=== PATIENT | male | born 2000 | race Hispanic/Latino ===

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

== ENCOUNTER 2018-01-15 06:01 | Emergency (ER) | payer BC, MEDICAID ==
[2018-01-15 06:34] VITALS: RESP 17; TEMP 98.3; O2SAT 100
[2018-01-15] MEDS ORDERED: Sodium Chloride 0.9% 1,000 ML IV STA (07:27)
[2018-01-15 08:54] LABS: PH,URINE 6.5 (4.7-8.0); URINE BILIRUBIN NEGATIVE (NEGATIVE); URINE BLOOD NEGATIVE (NEGATIVE); URINE GLUCOSE (UA) NEGATIVE (NEGATIVE); URINE LEUKOCYTE ESTERASE NEGATIVE Leu/uL (NEGATIVE); URINE PROTEIN NEGATIVE mg/dL (<30 mg/dL); URINE UROBILINOGEN 0.2 E.U./dL (<1 E.U./dL)
[2018-01-15 08:56] LABS: URINE APPEARANCE CLEAR (CLEAR); URINE COLOR LIGHT YELLOW (YELLOW)
[2018-01-15 09:04] LABS: BASO # 0.01 K/mm3 (0.0-2.0); BASO % 0.1 % (0.0-3.0); EOS % 0.2 % (1.5-5.0); GRAN # 6.73 (1.4-6.5); GRAN % 78.2 % (50.0-68.0); HEMOGLOBIN 14.5 g/dL (14.0-18.0); LYMPH # 1.2 (1.2-3.4); LYMPH % 13.8 % (22.0-35.0); MEAN CELL VOLUME 86.6 fl (80.0-105.0); MEAN CORPUSCULAR HEMOGLOBIN 31.3 pg (25.0-35.0); MEAN CORPUSCULAR HGB CONC 36.1 g/dl (31.0-37.0); MEAN PLATELET VOLUME 8.8 fl (7.0-11.0); MONO # 0.7 (0.1-0.6); MONO % 7.7 % (1.0-6.0); RBC 4.64 10^6/uL (3.5-6.1); RED CELL DISTRIBUTION WIDTH 13.2 % (11.5-14.5); WHITE BLOOD COUNT 8.6 10^3/ul (4.5-11.0)
[2018-01-15 09:14] LABS: ALB/GLOB RATIO 1.5 (1.1-1.8); ALBUMIN 4.7 g/dL (3.0-4.8); ALT/SGPT 25 U/L (7-56); AST/SGOT 20 U/L (17-59); BLOOD UREA NITROGEN 14 mg/dL (7-21); CALCIUM 9.3 mg/dL (8.4-10.5); GFR AFRICAN-AMERICAN > 60; GFR NON-AFRICAN AMERICAN > 60
[2018-01-15 09:31] LABS: BARBITURATES, UR NEGATIVE (NEGATIVE); BENZODIAZEPINES, UR NEGATIVE (NEGATIVE); OPIATES, UR NEGATIVE (NEGATIVE); PHENCYCLIDINE, UR NEGATIVE (NEGATIVE)
[2018-01-15 10:14] VITALS: PULSE 65
[2018-01-15 10:17] VITALS: BP 118/75
--- NOTE | 2018-01-15 11:14 | ED PDOC ---
Arrival/HPI - General Chief Complaint: Psychiatric Evaluation Time Seen by Provider: 01/15/18 07:01 Historian: Patient - History of Present Illness Narrative History of Present Illness (Text): 01/15/18 11:09 A 17 year old male, whose past medical history includes anxiety, presents to the emergency department for evaluation. Patient reports he took Xanax yesterday and "didn't feel good." He reports the Xanax was not prescribed to him. Patient denies any fever, chills, nausea, vomiting, abdominal pain, chest pain, shortness of breath, suicidal ideation, homicidal ideation, hallucinations or any other complaints. Patient denies any other drug use. Time/Duration: Other (yesterday) Symptom Course: Unchanged Context: Home Past Medical History - Provider Review Nursing Documentation Reviewed: Yes - Past History Past History: No Previous - Tetanus Immunization Tetanus Immunization: Unknown - Cardiac Hx Hypertension: No - Pulmonary Hx Tuberculosis: No - Neurological Hx Seizures: No - HEENT Hx HEENT Disorder: No - Renal Hx Renal Disorder: No - Endocrine/Metabolic Hx Endocrine Disorders: No - Hematological/Oncological Hx Cancer: No - Integumentary Hx Dermatological Disorder: No - Musculoskeletal/Rheumatological Hx Musculoskeletal Disorders: No - Gastrointestinal Hx Gastrointestinal Disorders: No - Genitourinary/Gynecological Hx Sexually Transmitted Diseases: No - Psychiatric Hx Substance Use: Yes (xanax) - Past Surgical History Past Surgical History: No Previous - Anesthesia Hx Anesthesia: No - Suicidal Assessment Suicide Risk Precautions: None Family/Social History - Physician Review Nursing Documentation Reviewed: Yes Family/Social History: No Known Family HX Smoking Status: Never Smoked Hx Alcohol Use: No Hx Substance Use: Yes (xanax) Hx Substance Use Treatment: No Allergies/Home Meds Allergies/Adverse Reactions: Allergies No Known Allergies Allergy (Verified 01/15/18 06:30) Home Medications: Home Meds Medication Instructions Recorded Confirmed No Known Home Med 04/26/12 01/15/18 Review of Systems - Physician Review All systems were reviewed & negative as marked: Yes - Review of Systems Constitutional: Other ("not feeling well"). absent: Fevers, Night Sweats Respiratory: absent: SOB Cardiovascular: absent: Chest Pain Gastrointestinal: absent: Abdominal Pain, Nausea, Vomiting Psychiatric: absent: Suicidal Ideation, Other (Homicidal ideation, Hallucinations) Physical Exam Vital Signs Reviewed: Yes Vital Signs Temp Pulse Resp BP Pulse Ox 01/15/18 10:16 65 17 118/75 100 01/15/18 10:14 65 17 100 01/15/18 09:36 68 17 120/75 100 01/15/18 06:31 98.3 F 64 17 117/71 100 Temperature: Afebrile Blood Pressure: Normal Pulse: Regular Respiratory Rate: Normal Appearance: Positive for: Well-Appearing, Non-Toxic, Comfortable Pain Distress: None Mental Status: Positive for: Alert and Oriented X 3 - Systems Exam Head: Present: Atraumatic, Normocephalic Pupils: Present: PERRL Extroacular Muscles: Present: EOMI Conjunctiva: Present: Normal Mouth: Present: Moist Mucous Membranes Neck: Present: Normal Range of Motion Respiratory/Chest: Present: Clear to Auscultation, Good Air Exchange. No: Respiratory Distress, Accessory Muscle Use Cardiovascular: Present: Regular Rate and Rhythm, Normal S1, S2. No: Murmurs Abdomen: No: Tenderness, Distention, Peritoneal Signs Back: Present: Normal Inspection Upper Extremity: Present: Normal Inspection. No: Cyanosis, Edema Lower Extremity: Present: Normal Inspection. No: Edema Neurological: Present: GCS=15, CN II-XII Intact, Speech Normal Skin: Present: Warm, Dry, Normal Color. No: Rashes Psychiatric: Present: Alert, Oriented x 3, Normal Insight, Normal Concentration Medical Decision Making ED Course and Treatment: 01/15/18 11:09 Impression: A 17 year old male presents for evaluation Plan: -- IV fluids -- Reassess and disposition Progress Notes: Labs reviewed, patient negative for xanax and positive for marijuana. On re-evaluation, patient feels better and is in no acute distress. I have discussed the results and plan with the patient, who expresses understanding. Patient in agreement with plan to be discharged home. Patient is stable for discharge. Patient was instructed to follow up with physician or return if symptoms worsen or new concerning symptoms arise. - Lab Interpretations Lab Results: 01/15/18 08:53 01/15/18 08:53 Lab Results 01/15/18 08:53: Alcohol, Quantitative < 10 01/15/18 08:53: Sodium 140, Potassium 4.3, Chloride 103, Carbon Dioxide 23, Anion Gap 18, BUN 14, Creatinine 0.8, Est GFR ( Amer) > 60, Est GFR (Non- Af Amer) > 60, Random Glucose 110, Calcium 9.3, Magnesium 2.0, Total Bilirubin 1.1, AST 20, ALT 25, Alkaline Phosphatase 49, Total Protein 7.7, Albumin 4.7, Globulin 3.0, Albumin/Globulin Ratio 1.5 01/15/18 08:53: WBC 8.6, RBC 4.64, Hgb 14.5, Hct 40.2 L, MCV 86.6, MCH 31.3, MCHC 36.1, RDW 13.2, Plt Count 215, MPV 8.8, Gran % 78.2 H, Lymph % (Auto) 13.8 L, [place] % (Auto) 7.7 H, Eos % (Auto) 0.2 L, Baso % (Auto) 0.1, Gran # 6.73 H, Lymph # (Auto) 1.2, [place] # (Auto) 0.7 H, Eos # (Auto) 0.0, Baso # (Auto) 0.01 01/15/18 08:35: Urine Opiates Screen Negative, Urine Methadone Screen Negative, Ur Barbiturates Screen Negative, Ur Phencyclidine Scrn Negative, Ur Amphetamines Screen Negative, U Benzodiazepines Scrn Negative, U Oth Cocaine Metabols Negative, U Cannabinoids Screen Positive H 01/15/18 08:35: Urine Color Light yellow, Urine Appearance Clear, Urine pH 6.5, Ur Specific [place] <= 1.005, Urine Protein Negative, Urine Glucose (UA) Negative, Urine Ketones 15 H, Urine Blood Negative, Urine Nitrate Negative, Urine Bilirubin Negative, Urine Urobilinogen 0.2, Ur Leukocyte Esterase Negative - Medication Orders Current Medication Orders: Discontinued Medications Sodium Chloride (Sodium Chloride 0.9%) 1,000 mls @ 999 mls/hr IV .[id number] STA Stop: 01/15/18 08:27 Last Admin: 01/15/18 08:47 Dose: Not Given Non-Admin Reason: Patient Refused - Scribe Statement The provider has reviewed the documentation as recorded by the Danitza Portillo Provider Scribe Attestation: All medical record entries made by the Scribe were at my direction and personally dictated by me. I have reviewed the chart and agree that the record accurately reflects my personal performance of the history, physical exam, medical decision making, and the department course for this patient. I have also personally directed, reviewed, and agree with the discharge instructions and disposition. Disposition/Present on Arrival - Present on Arrival Any Indicators Present on Arrival: No History of DVT/PE: No History of Uncontrolled Diabetes: No Urinary Catheter: No History of Decub. Ulcer: No History Surgical Site Infection Following: None - Disposition Have Diagnosis and Disposition been Completed?: Yes Diagnosis: Substance abuse Disposition: HOME/ ROUTINE Disposition Time: 09:35 Condition: GOOD Discharge Instructions (ExitCare): Drug Abuse and Drug Addiction (DC), Drug Abuse Treatment Additional Instructions: AYAKA HECK, thank you for letting us take care of you today. The emergency medical care you received today was directed at your acute symptoms. If you were prescribed any medication, please fill it and take as directed. It may take several days for your symptoms to resolve. Return to the Emergency Department if your symptoms worsen, do not improve, or if you have any other problems. Please contact your doctor or call one of the physicians/clinics you have been referred to that are listed on the Patient Visit Information form that is included in your discharge packet. Bring any paperwork you were given at discharge with you along with any medications you are taking to your follow up visit. Our treatment cannot replace ongoing medical care by a primary care provider outside of the emergency department. Thank you for allowing the [facility] team to be part of your care today. Follow up with your primary doctor in 3-4 days for re-evaluation and further management. Referrals: [facility], [Non-Staff] - Follow up with primary Forms: [employer] ([place])
== END 2018-01-15 10:16 | disposition home or self-care (01) ==
LOC: ED 06:01
DX: F19.10 Other psychoactive substance abuse, uncomplicated (principal); F41.9 Anxiety disorder, unspecified
CPT/HCPCS: 80053; 81003; 83735; 85025; 99285; G0480

== ENCOUNTER 2018-05-27 15:28 | Emergency (ER) | payer BC ==
[2018-05-27 15:32] VITALS: BMI 21.5
[2018-05-27 15:36] VITALS: RESP 18
[2018-05-27 16:12] LABS: BASO # 0.02 K/mm3 (0.0-2.0); BASO % 0.2 % (0.0-3.0); EOS % 0.3 % (1.5-5.0); GRAN # 6.81 (1.4-6.5); GRAN % 73.5 % (50.0-68.0); HEMOGLOBIN 16.3 g/dL (14.0-18.0); LYMPH # 1.3 (1.2-3.4); LYMPH % 14.5 % (22.0-35.0); MEAN CELL VOLUME 88.8 fl (80.0-105.0); MEAN CORPUSCULAR HEMOGLOBIN 32.1 pg (25.0-35.0); MEAN CORPUSCULAR HGB CONC 36.1 g/dl (31.0-37.0); MEAN PLATELET VOLUME 9.1 fl (7.0-11.0); MONO # 1.1 (0.1-0.6); MONO % 11.5 % (1.0-6.0); RBC 5.08 10^6/uL (3.5-6.1); RED CELL DISTRIBUTION WIDTH 11.7 % (11.5-14.5); WHITE BLOOD COUNT 9.3 10^3/uL (4.5-11.0)
[2018-05-27 16:21] LABS: ALB/GLOB RATIO 1.3 (1.1-1.8); ALBUMIN 4.8 g/dL (3.0-4.8); ALT/SGPT 20 U/L (7-56); AST/SGOT 19 U/L (17-59); BLOOD UREA NITROGEN 13 mg/dL (7-21); CALCIUM 9.8 mg/dL (8.4-10.5); GFR NON-AFRICAN AMERICAN > 60
[2018-05-27 16:22] LABS: ACETAMINOPHEN < 10.0 ug/ml (10.0-20.0); SALICYLATE < 1 mg/dL (2.0-20.0)
--- NOTE | 2018-05-27 16:38 | ED PDOC ---
Arrival/HPI - General Chief Complaint: Psychiatric Evaluation Time Seen by Provider: 05/27/18 15:30 Historian: Patient - History of Present Illness Narrative History of Present Illness (Text): 05/27/18 16:36 17yr old male presents today with anxiety, overthinking and not sleeping since yesterday. pt states he has a hx of schizophrenia. pt denies trauma or injury. no fever/chills. pt denies cp or sob. no dizziness or weakness. no n/v/d/c. no abdominal pain. pt states that he thinks he is having an anxiety attack. no other complaints. Past Medical History - Provider Review Nursing Documentation Reviewed: Yes - Travel History Have you recently traveled outside [place] w/in the past 3 mons?: No - Past History Past History: No Previous - Infectious Disease Hx of Infectious Diseases: None - Tetanus Immunization Tetanus Immunization: Unknown - Cardiac Hx Hypertension: No - Pulmonary Hx Tuberculosis: No - Neurological Hx Seizures: No - HEENT Hx HEENT Disorder: No - Renal Hx Renal Disorder: No - Endocrine/Metabolic Hx Endocrine Disorders: No - Hematological/Oncological Hx Cancer: No - Integumentary Hx Dermatological Disorder: No - Musculoskeletal/Rheumatological Hx Musculoskeletal Disorders: No - Gastrointestinal Hx Gastrointestinal Disorders: No - Genitourinary/Gynecological Hx Sexually Transmitted Diseases: No - Psychiatric Hx Anxiety: Yes Hx Depression: No Hx Substance Use: Yes (xanax) Other/Comment: substance abuse - Past Surgical History Past Surgical History: No Previous - Anesthesia Hx Anesthesia: No - Suicidal Assessment Feels Threatened In Home Enviroment: No Family/Social History - Physician Review Nursing Documentation Reviewed: Yes Family/Social History: Unknown Family HX Smoking Status: Current Some Days Smoker Hx Alcohol Use: Yes Frequency of alcohol use: Socially Hx Substance Use: Yes (xanax) Substance used: percocet/codeine Hx Substance Use Treatment: No Allergies/Home Meds Allergies/Adverse Reactions: Allergies No Known Allergies Allergy (Verified 01/15/18 06:30) Home Medications: Home Meds Medication Instructions Recorded Confirmed No Known Home Med 04/26/12 05/27/18 Review of Systems - Review of Systems Constitutional: absent: Fatigue, Fevers Respiratory: absent: SOB, Cough Cardiovascular: absent: Chest Pain, Palpitations Gastrointestinal: absent: Abdominal Pain, Constipation, Diarrhea, Nausea, Vomiting Genitourinary Male: absent: Dysuria Musculoskeletal: absent: Arthralgias, Back Pain, Neck Pain Skin: absent: Rash, Pruritis Neurological: absent: Headache, Dizziness Psychiatric: Anxiety Physical Exam Vital Signs Reviewed: Yes Vital Signs Temp Pulse Resp BP Pulse Ox 05/27/18 15:36 97.9 F 93 H 18 125/85 97 Temperature: Afebrile Blood Pressure: Normal Pulse: Regular Respiratory Rate: Normal Appearance: Positive for: Well-Appearing, Non-Toxic, Comfortable Pain Distress: None Mental Status: Positive for: Alert and Oriented X 3 - Systems Exam Head: Present: Atraumatic Mouth: Present: Moist Mucous Membranes Neck: Present: Normal Range of Motion Respiratory/Chest: Present: Clear to Auscultation, Good Air Exchange. No: Respiratory Distress, Accessory Muscle Use Cardiovascular: Present: Regular Rate and Rhythm, Normal S1, S2. No: Murmurs Abdomen: No: Tenderness, Distention, Peritoneal Signs, Rebound, Guarding Back: Present: Normal Inspection Upper Extremity: Present: Normal ROM Lower Extremity: Present: Normal ROM Neurological: Present: GCS=15, Speech Normal Skin: Present: Warm, Dry, Normal Color. No: Rashes Psychiatric: Present: Alert, Oriented x 3, Anxious. No: Suicidal Ideation, Homicidal Ideation Medical Decision Making ED Course and Treatment: 05/27/18 16:44 Patient is nontoxic well-appearing in no distress vital signs are stable. CBC WNL CMP WNL Tylenol WNL Salicylate WNL Alcohol level WNL Urine drug screen UA; + ketones cxr: wnl ekg sinus bradycardia at [address] elevations QTC 390 pt is non toxic well appearing; no distress. stable vitals. resting comfortably. pt is medically cleared for PES evaluation Patient was seen and evaluated by PES screener: Gilmer pt has been discharged AMA by psych. Impression; anxiety follow up with outpatient psychiatrist within the next 2 days. Follow-up with primary care physician within the next 2 days. Return if symptoms worsen persist or if new concerning symptoms develop - Lab Interpretations Lab Results: 05/27/18 15:50 05/27/18 15:50 Lab Results 05/27/18 15:50: Alcohol, Quantitative < 10 05/27/18 15:50: Salicylates < 1 L, Acetaminophen < 10.0 L 05/27/18 15:50: Sodium 140, Potassium 4.2, Chloride 103, Carbon Dioxide 23, Anion Gap 18, BUN 13, Creatinine 0.8, Est GFR ( Amer) > 60, Est GFR (Non- Af Amer) > 60, Random Glucose 107, Calcium 9.8, Total Bilirubin 0.8, AST 19, ALT 20, Alkaline Phosphatase 70, Total Protein 8.6 H, Albumin 4.8, Globulin 3.7, Albumin/Globulin Ratio 1.3 05/27/18 15:50: WBC 9.3, RBC 5.08, Hgb 16.3, Hct 45.1, MCV 88.8, MCH 32.1, MCHC 36.1, RDW 11.7, Plt Count 243, MPV 9.1, Gran % 73.5 H, Lymph % (Auto) 14.5 L, [place] % (Auto) 11.5 H, Eos % (Auto) 0.3 L, Baso % (Auto) 0.2, Gran # 6.81 H, Lymph # (Auto) 1.3, [place] # (Auto) 1.1 H, Eos # (Auto) 0.0, Baso # (Auto) 0.02 - RAD Interpretation Radiology Orders: 05/27/18 15:41 CHEST PORTABLE [RAD] Stat Disposition/Present on Arrival - Present on Arrival Any Indicators Present on Arrival: No History of DVT/PE: No History of Uncontrolled Diabetes: No Urinary Catheter: No History of Decub. Ulcer: No History Surgical Site Infection Following: None - Disposition Have Diagnosis and Disposition been Completed?: Yes Diagnosis: Anxiety Disposition: HOME/ ROUTINE Disposition Time: 17:15 Patient Plan: Discharge Condition: GOOD Additional Instructions: follow up with outpatient psychiatrist within the next 2 days. Follow-up with primary care physician within the next 2 days. Return if symptoms worsen persist or if new concerning symptoms develop Referrals: Regi Dumont MD [Medical Doctor] - Follow up with primary [facility] [Outside] - Follow up with primary [facility] [[facility]] - Follow up with primary Forms: [employer] ([place]), WORK NOTE
--- NOTE | 2018-05-27 16:52 | RAD ---
Date of service: 05/27/2018 HISTORY: PES COMPARISON: 04/26/2012 FINDINGS: LUNGS: No active pulmonary disease. PLEURA: No significant pleural effusion identified, no pneumothorax apparent. CARDIOVASCULAR: No atherosclerotic calcification present Normal. OSSEOUS STRUCTURES: No significant abnormalities. VISUALIZED UPPER ABDOMEN: Normal. OTHER FINDINGS: None. IMPRESSION: No active disease.
[2018-05-27 17:39] VITALS: BP 137/62; PULSE 72; TEMP 98.6; O2SAT 99
[2018-05-27 17:50] LABS: URINE APPEARANCE CLEAR (CLEAR); URINE BILIRUBIN SMALL (NEGATIVE); URINE BLOOD NEGATIVE (NEGATIVE); URINE COLOR YELLOW (YELLOW); URINE GLUCOSE (UA) NEGATIVE (NEGATIVE); URINE LEUKOCYTE ESTERASE NEGATIVE Leu/uL (NEGATIVE); URINE PROTEIN NEGATIVE mg/dL (<30 mg/dL); URINE UROBILINOGEN 0.2 E.U./dL (<1 E.U./dL)
[2018-05-27 18:16] LABS: BARBITURATES, UR NEGATIVE (NEGATIVE); BENZODIAZEPINES, UR NEGATIVE (NEGATIVE); OPIATES, UR NEGATIVE (NEGATIVE); PHENCYCLIDINE, UR NEGATIVE (NEGATIVE)
--- NOTE | 2018-05-28 06:54 | CARD ---
APPROVED REPORT Date of service: 05/27/2018 EKG Measurement Heart [id number] <Conclusion> Sinus bradycardia Minimal voltage criteria for LVH, may be normal variant Borderline ECG
== END 2018-05-27 18:25 | disposition home or self-care (01) ==
LOC: ED 15:28
DX: F41.9 Anxiety disorder, unspecified (principal); F20.9 Schizophrenia, unspecified
CPT/HCPCS: 71045; 80053; 81003; 85025; 90791; 93005; 99283; G0480

== ENCOUNTER 2018-05-28 00:36 | Inpatient (IN) | payer BC ==
[2018-05-28 00:43] VITALS: BMI 22.1
--- NOTE | 2018-05-28 00:55 | ED PDOC ---
Arrival/HPI - General Chief Complaint: Psychiatric Evaluation Time Seen by Provider: 05/28/18 00:39 Historian: Patient - History of Present Illness Narrative History of Present Illness (Text): 05/28/18 00:50 17 year old male, whose past medical history includes anxiety, presents to the emergency department for evaluation of anxiety and paranoia. Patient states he hasn't been able to sleep in 2 days. Patient informs being in the emergency department the previous day for similar complaints. When asked why he left AMA, patient states he felt better and thought he could go home and sleep. Patient states if he needs to stay this time he will. Patient informs some substance abuse, stating he takes xanax and percocet occasionally, with last use for both being 4 days ago. Patient denies any fevers, chills, headache, dizziness, chest pain, shortness of breath, cough, abdominal pain, nausea, vomiting, diarrhea, back pain, neck pain, urinary/bowel changes, suicidal or homicidal ideation, or any other complaint. Time/Duration: Prior to Arrival, < week (2 days of sleeplessness) Symptom Onset: Gradual Symptom Course: Unchanged Past Medical History - Provider Review Nursing Documentation Reviewed: Yes - Past History Past History: No Previous - Infectious Disease Hx of Infectious Diseases: None - Tetanus Immunization Tetanus Immunization: Unknown - Cardiac Hx Hypertension: No - Pulmonary Hx Tuberculosis: No - Neurological Hx Seizures: No - HEENT Hx HEENT Disorder: No - Renal Hx Renal Disorder: No - Endocrine/Metabolic Hx Endocrine Disorders: No - Hematological/Oncological Hx Cancer: No - Integumentary Hx Dermatological Disorder: No - Musculoskeletal/Rheumatological Hx Musculoskeletal Disorders: No - Gastrointestinal Hx Gastrointestinal Disorders: No - Genitourinary/Gynecological Hx Sexually Transmitted Diseases: No - Psychiatric Hx Anxiety: Yes Hx Depression: No Hx Substance Use: Yes (xanax) Other/Comment: substance abuse - Past Surgical History Past Surgical History: No Previous - Anesthesia Hx Anesthesia: No - Suicidal Assessment Feels Threatened In Home Enviroment: No Family/Social History - Physician Review Nursing Documentation Reviewed: Yes Family/Social History: No Known Family HX Smoking Status: Current Some Days Smoker Hx Alcohol Use: Yes Hx Substance Use: Yes (xanax) Substance used: percocet/codeine Hx Substance Use Treatment: No Allergies/Home Meds Allergies/Adverse Reactions: Allergies No Known Allergies Allergy (Verified 01/15/18 06:30) Home Medications: Home Meds Medication Instructions Recorded Confirmed No Known Home Med 04/26/12 05/27/18 Review of Systems - Physician Review All systems were reviewed & negative as marked: Yes - Review of Systems Constitutional: absent: Fevers, Night Sweats Respiratory: absent: SOB, Cough Cardiovascular: absent: Chest Pain Gastrointestinal: absent: Abdominal Pain, Diarrhea, Nausea, Vomiting Genitourinary Male: absent: Urinary Output Changes Musculoskeletal: absent: Back Pain, Neck Pain Neurological: absent: Headache, Dizziness Psychiatric: Anxiety, Other (paranoia; No homicidal ideation). absent: Suicidal Ideation Physical Exam - Physical Exam Narrative Physical Exam (Text): 05/28/18 00:56 Gen: VS reviewed, alert, well developed, well nourished, nontoxic, mild di stress. ENT: normal pharynx. Eye: EOMI, PERRL. Neck: no JVD, supple, no adenopathy. CV: regular rate, regular rhythm, no rubs, no murmur, no gallops, S1, S2, pulses equal and strong. Pulm: no distress, clear to auscultation, no wheeze, no rhonchi, breath sounds equal, no rales. Abd: soft, nontender, no guarding, no rebound, no rigidity, normal bowel sounds. Ext: no edema, mildly tremulous. Skin: good color, no rash, no cyanosis. Psych: responds appropriately to questions, anxious. Neuro: oriented x 3, CN2-12 intact grossly, motor intact, sensation intact. Vital Signs Reviewed: Yes Vital Signs Temp Pulse Resp BP Pulse Ox 05/28/18 00:43 98.2 F 57 L 18 132/75 99 Temperature: Afebrile Blood Pressure: Normal Pulse: Regular Respiratory Rate: Normal Appearance: Positive for: Well-Appearing, Non-Toxic, Comfortable Pain Distress: None Mental Status: Positive for: Alert and Oriented X 3 Medical Decision Making ED Course and Treatment: 05/28/18 00:58 Impression: 17 year old male presents with anxiety and paranoia. Plan: -- Labs -- Reassess and disposition Prior Visits: Notes and results from previous visits were reviewed. Progress Notes: 05/28/18 02:01 patient is medically stable for psych eval, admission, transfer if needed 05/28/18 02:18 admit accepted to service of dr. hines for tx of schizophrenia - Jocelynee Statement The provider has reviewed the documentation as recorded by the Danitza Cramer Provider Danitza Attestation: All medical record entries made by the Scribe were at my direction and personally dictated by me. I have reviewed the chart and agree that the record accurately reflects my personal performance of the history, physical exam, medical decision making, and the department course for this patient. I have also personally directed, reviewed, and agree with the discharge instructions and disposition. \ Disposition/Present on Arrival - Present on Arrival Any Indicators Present on Arrival: No History of DVT/PE: No History of Uncontrolled Diabetes: No Urinary Catheter: No History of Decub. Ulcer: No History Surgical Site Infection Following: None - Disposition Have Diagnosis and Disposition been Completed?: Yes Diagnosis: Paranoia Disposition: HOSPITALIZED Disposition Time: 02:18 Patient Plan: Admission Patient Problems: Current Active Problems Problem Status Onset Paranoia Acute Condition: STABLE Referrals: Mor Aparicio MD [Primary Care Provider] - Follow up with primary Forms: [employer] (Welsh)
[2018-05-28 01:27] LABS: BASO # 0.02 K/mm3 (0.0-2.0); BASO % 0.2 % (0.0-3.0); EOS # 0.1 (0.0-0.7); EOS % 0.9 % (1.5-5.0); GRAN # 5.65 (1.4-6.5); GRAN % 62.7 % (50.0-68.0); HEMOGLOBIN 16.1 g/dL (14.0-18.0); LYMPH # 2.3 (1.2-3.4); LYMPH % 25.4 % (22.0-35.0); MEAN CELL VOLUME 88.3 fl (80.0-105.0); MEAN CORPUSCULAR HEMOGLOBIN 31.4 pg (25.0-35.0); MEAN CORPUSCULAR HGB CONC 35.5 g/dl (31.0-37.0); MEAN PLATELET VOLUME 9.2 fl (7.0-11.0); MONO % 10.8 % (1.0-6.0); RBC 5.13 10^6/uL (3.5-6.1); RED CELL DISTRIBUTION WIDTH 11.8 % (11.5-14.5)
[2018-05-28 01:37] LABS: ACETAMINOPHEN < 10.0 ug/ml (10.0-20.0); SALICYLATE < 1 mg/dL (2.0-20.0)
[2018-05-28 01:39] LABS: ALB/GLOB RATIO 1.4 (1.1-1.8); ALBUMIN 4.9 g/dL (3.0-4.8); ALT/SGPT 22 U/L (7-56); AST/SGOT 27 U/L (17-59); BLOOD UREA NITROGEN 14 mg/dL (7-21); CALCIUM 9.4 mg/dL (8.4-10.5); GFR NON-AFRICAN AMERICAN > 60
[2018-05-28 04:18] VITALS: O2SAT 100
[2018-05-28 05:00] LABS: BARBITURATES, UR NEGATIVE (NEGATIVE); BENZODIAZEPINES, UR NEGATIVE (NEGATIVE); OPIATES, UR NEGATIVE (NEGATIVE); PHENCYCLIDINE, UR NEGATIVE (NEGATIVE)
--- NOTE | 2018-05-28 06:37 | PCM.BM ---
<Sonia Harris - Last Filed: 05/28/18 06:34> Treatment Plan Problems - Problems identified on initial assessmt Panick Attacks Date Initiated: 05/28/18 Time Initiated: 06:35 Assessment reference: NA Status: Active Anxiety Date Initiated: 05/28/18 Time Initiated: 06:35 Assessment reference: NA Status: Active Auditory Hallucinations Date Initiated: 05/28/18 Time Initiated: 06:35 Assessment reference: NA Status: Active Altered Sleep Patterns Date Initiated: 05/28/18 Time Initiated: 06:35 Assessment reference: NA Status: Active Treatment assets and liabiliti Patient Assests: adapts well, cooperative, insightful, self-reliant, ADL independent, physically healthy, good support system, negotiates basic needs, cognitively intact Patient Liabilities: live alone, financial problems, relationship conflicts, substance abuse, legal issue - Milieu Protocol Maintain good personal hygiene: daily Encourage regular showers, daily Remind patient to perform daily oral care, daily Assist patient to perform ADL's Conduct patient checks and document Observation sheet: Q15 minutes Maintain personal safety: every shift Educate patient to report safety concerns to staff, every shift Monitor environment for contraband/sharps Medication safety: Monitor for expected outcome, potential side effects: every shift, Assess barriers to learning: every shift, Assess readiness for medication education: every shift Discharge/Continuing Care - Education Needs Education Needs: Patient Medication, Patient Diagnosis/Disease Process, Patient Coping Skills, Patient Anger Management skills, Patient Community resources, Patient Activities of Daily Living, Patient Health Practices/Safety, Patient Aftercare Safety Plan - Discharge Discharge Criteria: Tolerates medication w/o severe side effects, Free of paranoid thoughts, Free of agitation, Normal sleep pattern, Ability to care for self, Reduction of target symptoms <Flor Leger - Last Filed: 05/28/18 08:25> - Diagnosis (1) Psychosis Status: Acute Interventions: 05/28/18 08:24 Psychoeducation/psychotherapy Psychopharmacology/adjustment of medications as needed/ monitoring possible side effects Evaluate pt on daily basis Compliance with medications and follow up appointments Long acting medication if pt is noncompliant with pill form Suicide and homicide risk assessment and prevention, coping strategies, safety plan Relapse prevention Reduction of symptoms Improve functional status Possible assertive community treatment Cognitive behavioral therapy Family involvement Possible social skill training as outpatient (2) Polysubstance abuse Status: Acute Interventions: 05/28/18 08:25 Monitoring withdrawal symptoms Medical detoxification Pharmacotherapy for alcohol/benzos/opioid dependence Maintaining sobriety Relapse prevention Possible rehabilitation Motivational interviewing 12-step programs: AA meetings
[2018-05-28 07:16] VITALS: RESP 20; TEMP 98
[2018-05-28 08:24] LABS: GLUCOSE,FASTING 121 mg/dL (65-110); HDL CHOLESTEROL 38 mg/dL (29-60)
[2018-05-28 08:35] LABS: LDL CHOLESTEROL 125 mg/dL (0-129)
--- NOTE | 2018-05-28 13:24 | PCM.PSYCH ---
Initial Psychiatric Evaluation - Initial Psychiatric Evaluation Type of Admission: Voluntary Legal Status: Capacity (patient had the capacity to sign cosnent for treatment) Chief Complaint (in patient's own words): "did you hear this? let me check something on the hallway...", pt ran outside, pt is actively hallucinating, disorganized, restless. Patient's Reaction to Hospitalization: pt was admitted for evaluation of psychosis, disorganized thoughts and behavior, inability to function. History of Present Illness and Precipitating Events: shortly pt is 17 year old male, h/o included ADHD ?, h/o polysubstance abuse and dependence, h/o inpatient rehabs and detoxes, pt has one previous psych admission at [facility] 09/2015 for mood and conduct, polysubstance abuse, pt was brought to the hospital for evaluation of anxiety and psychosis, pt was in ED 24hrs ago and signed himself AMA, pt presented to be disorganized, psychotic, required further evaluation and stabilization, meds adjustment. in the ED pt presented to be anxious, irritable, in the unit pt was agitated, then submitted 48 hr notice requesting discharge. as per RN report pt was seeing in the community, but it is not clear. pt reported difficulties to fall and stay asleep, pt was in his room talking loudly to himself in dark during the night time. pt was medicated with ativan and haldol, needed Cogentin because of the stiffness of his UE. pt was seen at the morning, poor hygiene, poor ADLs, pt has multiple tattoos on his UE, there is no option to have a meaningful conversation, pt is restless, keep looking at his back, then run outside of the room saying that he heard something, then came back, pt obviously psychotic, responding to internal stimuli, pt observed talking to himself and has visual hallucinations, speech is overproductive, loud, word salad. pt said that he was released from the [facility] rehab where he was for the past month, pt reported he completed one month of treatment there, pt reported he relapsed on some marijuana, pt said to the nurse lan manager that he ate edible cannabis cookies, pt reported he relapsed on "perkie", meaning percocet. pt required PO seroquel and ativan stat because pt was not able to stay still and active psychosis. pt was medicated again at 10:11am with Geodon IM 20mg, then Ativan 2mg IM at 10:44am, no success, pt is still agitated, restless. later on patient became extremely agitated, was not able to stay still, was screaming and yelling, was not following redirections, pt pose danger to self and others and required to be in restraint, this freelance writer had face:face evaluation. pt was started on 4Xpoint restraint at 11:30am, pt is in quiet room, laying in his back, actively hallucinating, screaming/yelling/ not following redirections, pt was medicated again with Thorazine 50mg and ativan 2mg IM at 12:12pm. pt's vitals: BP 144/76, pt was tachycardic 140/160. we will monitor closely. pt was reevaluated at 1:16pm, pt calmer but still psychotic, ps is 93, pt is not ready for d/c restraint yet. staff was educated to release restraint as soon as pt is calmer. from the previous admission pt was dx with ADHD, combatice behavior, conduct disorder, cannabis abuse. pt lives with his father. mother has h/o substance abuse. Medical h/o: pt is healthy. pt was not able to tell if he smokes cigarettes. pt was not able to tell if he has h/o been abuse. pt was not able to provide h/o suicidal attempts. 05/28/18 01:17 05/28/18 01:17 Lab Results 05/28/18 07:45: TSH 3rd Generation 2.28 05/28/18 07:45: Fasting Glucose 121 H, Triglycerides 90, Cholesterol 174, LDL Cholesterol Direct 125, HDL Cholesterol 38 05/28/18 04:23: Urine Opiates Screen Negative, Urine Methadone Screen Negative, Ur Barbiturates Screen Negative, Ur Phencyclidine Scrn Negative, Ur Amphetamines Screen Negative, U Benzodiazepines Scrn Negative, U Oth Cocaine Metabols Negative, U Cannabinoids Screen Positive H 05/28/18 01:17: Alcohol, Quantitative < 10 05/28/18 01:17: Salicylates < 1 L, Acetaminophen < 10.0 L 05/28/18 01:17: Sodium 138, Potassium 3.7, Chloride 103, Carbon Dioxide 21, Anion Gap 17, BUN 14, Creatinine 0.7 L, Est GFR ( Amer) > 60, Est GFR (Non-Af Amer) > 60, Random Glucose 102, Calcium 9.4, Total Bilirubin 1.0, AST 27, ALT 22, Alkaline Phosphatase 66, Total Protein 8.4 H, Albumin 4.9 H, Globulin 3.6, Albumin/Globulin Ratio 1.4 05/28/18 01:17: WBC 9.0, RBC 5.13, Hgb 16.1, Hct 45.3, MCV 88.3, MCH 31.4, MCHC 35.5, RDW 11.8, Plt Count 247, MPV 9.2, Gran % 62.7, Lymph % (Auto) 25.4, [place] % (Auto) 10.8 H, Eos % (Auto) 0.9 L, Baso % (Auto) 0.2, Gran # 5.65, Lymph # (Auto) 2.3, [place] # (Auto) 1.0 H, Eos # (Auto) 0.1, Baso # (Auto) 0.02 Vital Signs (72 hours) 05/28/18 05/28/18 05/28/18 00:43 02:10 04:17 Temperature 98.2 F 98.4 F Pulse Rate 57 L 58 L 78 Respiratory 18 18 17 Rate Blood Pressure 132/75 115/73 112/62 O2 Sat by Pulse 99 99 100 Oximetry 05/28/18 05/28/18 04:30 07:15 Temperature 98 F 98.0 F Pulse Rate 81 81 Respiratory 18 20 Rate Blood Pressure 117/80 117/80 O2 Sat by Pulse Oximetry The patient failed the outpatient lower level of care: Yes Current Medications: Active Medications Generic Name Dose Route Start Last Admin Trade Name Freq PRN Reason Stop Dose Admin Haloperidol 5 mg 05/28/18 04:45 05/28/18 05:00 Haldol PO 5 mg Q6 PRN Administration Agitation Protocol Haloperidol Lactate 5 mg 05/28/18 04:45 Haldol IM Q6 PRN Agitation Protocol Lorazepam 2 mg 05/28/18 04:45 Ativan IM Q6 PRN Agitation Protocol Lorazepam 2 mg 05/28/18 04:45 05/28/18 05:00 Ativan PO 2 mg Q6 PRN Administration Agitation Protocol Quetiapine Fumarate 50 mg 05/28/18 22:00 Seroquel PO HS ENRIQUE Protocol Present on Admission - Present on Admission Any Indicators Present on Admission: No Review of Systems - Review of Systems Systems not reviewed;Unavailable: Acuity of Condition - Constitutional Constitutional: As Per HPI - EENT Eyes: As Per HPI Ears: As Per HPI Nose/Mouth/Throat: As Per HPI - Cardiovascular Cardiovascular: As Per HPI - Respiratory Respiratory: As Per HPI - Gastrointestinal Gastrointestinal: As Per HPI - Genitourinary Genitourinary: As Per HPI - Reproductive: Male Reproductive:Male: As Per HPI - Musculoskeletal Musculoskeletal: As Per HPI - Integumentary Integumentary: As Per HPI - Neurological Neurological: As Per HPI - Psychiatric Psychiatric: As Per HPI - Endocrine Endocrine: As Per HPI - Hematologic/Lymphatic Hematologic: As Per HPI Past Patient History - Past Psychiatric History Previous Treatment History: Inpatient Prior Professional Help: see HPI Prior Psychiatric Treatment: see HPI At what hospital: see HPI Duration: see HPI Nature of Treatment: see HPI Explanation of prior treatment: see HPI - PSYCHIATRIC Hx Anxiety: Yes Hx Schizophrenia: Yes Hx Substance Use: Yes - Infectious Disease Hx of Infectious Diseases: None - Tetanus Immunizations Tetanus Immunization: Unknown - CARDIAC Hx Hypertension: No - PULMONARY Hx Tuberculosis: No - NEUROLOGICAL Hx Seizures: No - HEENT Hx HEENT Problems: No - RENAL Hx Chronic Kidney Disease: No - ENDOCRINE/METABOLIC Hx Endocrine Disorders: No - HEMATOLOGICAL/ONCOLOGICAL Hx Cancer: No - INTEGUMENTARY Hx Dermatological Problems: No - MUSCULOSKELETAL/RHEUMATOLOGICAL Hx Musculoskeletal Disorders: No - GASTROINTESTINAL Hx Gastrointestinal Disorders: No - GENITOURINARY/GYNECOLOGICAL Hx Sexually Transmitted Disorders: No - SURGICAL HISTORY Hx Surgeries: No - ANESTHESIA Hx Anesthesia: No - Medical/Surgical History Reviewed & confirmed: by wv Meds Allergies/Adverse Reactions: Allergies Allergy/AdvReac Type Severity Reaction Status Date / Time No Known Allergies Allergy Verified 05/28/18 05:36 Mental Status Examination - Personal Presentation Personal Presentation: Looks stated age - Affect Affect: Constricted - Motor Activity Motor Activity: Violent, Psychomotor Agitation - Reliability in Providing Information Reliability in Providing Information: Poor, due to alteration in thoughts - Speech Speech: Disorganized, Irrelevant, Tangential, Incoherent - Mood Mood: Depressed, Anxious - Formal Thought Process Formal Thought Process: Hallucinations, Delusions, Paranoia, Loosening of associations, Flight of ideas, Circumstantial, Thought Broadcasting, Perservation - Hallucinations/Delusions Hallucinations: Visual, Auditory Delusions: Granduer, Persecution - Obsessions/Compulsions Obsessions: None Compulsions: None - Cognitive Functions Orientation: Person, Place Sensorium: Alert Attention/Concentration: Easily distracted Abstract Thinking: [place] Estimate of Intelligence: Below average Judgement: Intact, as evidence by: Insight regarding need for hospitalization - Risk Risk: Suicidal, Elopement, Withdrawal, Falls, Self-mutilation, Diminished functioning - Strength & Assets Inventory Strength & Assets Inventory: Family support - Limitations Limitations: Other (substance abuse and dependence) Psychiatric Physical Exam - Physical Exam Reviewed and confirmed: Emergency Department Physical Exam Results - Vital Signs Recent Vital Signs: Last Vital Signs Temp 98.0 F 05/28/18 07:15 Pulse 81 05/28/18 07:15 Resp 20 05/28/18 07:15 BP 117/80 05/28/18 07:15 Pulse Ox 100 05/28/18 04:17 - Labs Result Diagrams: 05/28/18 01:17 05/28/18 01:17 Labs: Laboratory Results - last 24 hr 05/28/18 05/28/18 05/28/18 01:17 01:17 01:17 WBC 9.0 RBC 5.13 Hgb 16.1 Hct 45.3 MCV 88.3 MCH 31.4 MCHC 35.5 RDW 11.8 Plt Count 247 MPV 9.2 Gran % 62.7 Lymph % (Auto) 25.4 [place] % (Auto) 10.8 H Eos % (Auto) 0.9 L Baso % (Auto) 0.2 Gran # 5.65 Lymph # (Auto) 2.3 [place] # (Auto) 1.0 H Eos # (Auto) 0.1 Baso # (Auto) 0.02 Sodium 138 Potassium 3.7 Chloride 103 Carbon Dioxide 21 Anion Gap 17 BUN 14 Creatinine 0.7 L Est GFR ( Amer) > 60 Est GFR (Non-Af Amer) > 60 Random Glucose 102 Calcium 9.4 Total Bilirubin 1.0 AST 27 ALT 22 Alkaline Phosphatase 66 Total Protein 8.4 H Albumin 4.9 H Globulin 3.6 Albumin/Globulin Ratio 1.4 Salicylates < 1 L Urine Opiates Screen Urine Methadone Screen Acetaminophen < 10.0 L Ur Barbiturates Screen Ur Phencyclidine Scrn Ur Amphetamines Screen U Benzodiazepines Scrn U Oth Cocaine Metabols U Cannabinoids Screen Alcohol, Quantitative 05/28/18 05/28/18 01:17 04:23 WBC RBC Hgb Hct MCV MCH MCHC RDW Plt Count MPV Gran % Lymph % (Auto) [place] % (Auto) Eos % (Auto) Baso % (Auto) Gran # Lymph # (Auto) [place] # (Auto) Eos # (Auto) Baso # (Auto) Sodium Potassium Chloride Carbon Dioxide Anion Gap BUN Creatinine Est GFR ( Amer) Est GFR (Non-Af Amer) Random Glucose Calcium Total Bilirubin AST ALT Alkaline Phosphatase Total Protein Albumin Globulin Albumin/Globulin Ratio Salicylates Urine Opiates Screen Negative Urine Methadone Screen Negative Acetaminophen Ur Barbiturates Screen Negative Ur Phencyclidine Scrn Negative Ur Amphetamines Screen Negative U Benzodiazepines Scrn Negative U Oth Cocaine Metabols Negative U Cannabinoids Screen Positive H Alcohol, Quantitative < 10 - EKG Data EKG Interpreted by: ER Physician DSM Plan - DSM 5 DSM 5 Diagnosis: psychosis NOS r/o substance induced psychosis 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 exclude that pt was using synthetic drugs polysubstance abuse and dependence h/o ADHD - Recommended/Plan of Treatment Treatment Recommendations and Plan of Treatment: Milieu/structure/supportive therapy Medical consult was called SW consultation for discharge plan and social issues Med management pt was started on ativan 2mg po qid for mood stabilization PRN meds geodon/ativan MVI seroquel was increased to 100mg po amhs for psychosis Family involvement Follow up on labs Will monitor closely Pt was educated about risk/benefits and alternatives of medications, coping st rategies (safety plan, suicide prevention), relapse prevention, importance of follow up with psychiatrist and therapist, stay away from drugs/alcohol/smoking Projected ELOS: 7days Prognosis: guarded Discharge Plan and Discharge Criteria: Pt will be not depressed or manic, will be more hopeful, will be not psychotic or anxious, will be not having thoughts of harming self or others, will be tolerating medications well, will not have major side effects, will be able to function, will not pose threat to self or others. - Tobacco Cessation Tobacco Use Treatment Practical Counseling Provided: No Reason for not providing: due to agitation/aggression - Alcohol or Substance Abuse Does the patient have an Alcohol or Substance Abuse Disorder: Yes Initial Psych Certification - Initial Certification I certify that the inpatient psychiatric facility admission was medically necessary for either: Treatment which could reasonbly be expected to improve pt's condition, Diagnostic study I estimate of hospitalization is necessary for proper treatment of the patient: 7 Unit of Time: Days My plans for post-hospital care for this patient are: IOP rehab dual diagnosis programs
[2018-05-28 14:05] VITALS: BP 131/84; PULSE 93
[2018-05-28] MEDS ORDERED: DiphenhydrAMINE 50 mg/ml Inj ONE (15:17)
== END 2018-05-28 18:30 | disposition short-term general hospital (02) | DRG 885 ==
LOC: ED 00:36 → ERH 02:18 → PSYC 04:43
PROVIDERS: ADMIT Psychiatry & Neurology Psychiatry; ATTEND Psychiatry & Neurology Psychiatry
PROC: GZ3ZZZZ Medication Management (ICD-10-PCS; principal; 2018-05-28)
DX: F28 Other psychotic disorder not due to a substance or known physiological condition (principal); F90.9 Attention-deficit hyperactivity disorder, unspecified type; F19.10 Other psychoactive substance abuse, uncomplicated

== ENCOUNTER 2018-05-28 15:04 | Inpatient (IN) | payer BC ==
[2018-05-28 15:05] VITALS: BMI 22.1
[2018-05-28] MEDS ORDERED: DiphenhydrAMINE 50 mg/ml Inj IM STA (15:33)
--- NOTE | 2018-05-28 15:55 | ED PDOC ---
Arrival/HPI - General Chief Complaint: Altered Mental Status Historian: Other (Psychiatric unit) EM Caveat: Acuity of Condition - History of Present Illness Narrative History of Present Illness (Text): 05/28/18 15:31 17 year old male who was sent down after being admitted to the psychiatry floor for increased agitation and visual hallucinations despite being given multiple doses of Ativan and Geodon. He is noted to be in 4 point restraints and tachycardic to 150s. He was seen in the emergency room the previous day with unremarkable labs, medically cleared and admitted to the psychiatric [facility]. A more complete HPI and ROS is unable to obtain due to the patients clinical condition. Time/Duration: Prior to Arrival Symptom Onset: Gradual Symptom Course: Unchanged Severity Level: Severe Context: Other (psychiatric unit at [facility] [place]) Past Medical History - Provider Review Nursing Documentation Reviewed: Yes - Travel History Have you recently traveled outside [place] w/in the past 3 mons?: No - Past History Past History: No Previous - Infectious Disease Hx of Infectious Diseases: None - Tetanus Immunization Tetanus Immunization: Unknown - Cardiac Hx Hypertension: No - Pulmonary Hx Tuberculosis: No - Neurological Hx Seizures: No - HEENT Hx HEENT Disorder: No - Renal Hx Renal Disorder: No - Endocrine/Metabolic Hx Endocrine Disorders: No - Hematological/Oncological Hx Cancer: No - Integumentary Hx Dermatological Disorder: No - Musculoskeletal/Rheumatological Hx Musculoskeletal Disorders: No - Gastrointestinal Hx Gastrointestinal Disorders: No - Genitourinary/Gynecological Hx Sexually Transmitted Diseases: No - Psychiatric Hx Anxiety: Yes Hx Schizophrenia: Yes Hx Substance Use: Yes - Past Surgical History Past Surgical History: No Previous - Anesthesia Hx Anesthesia: No - Suicidal Assessment Feels Threatened In Home Enviroment: No Family/Social History - Physician Review Nursing Documentation Reviewed: Yes Family/Social History: No Known Family HX Smoking Status: Current Some Days Smoker Hx Alcohol Use: No Hx Substance Use: Yes Substance used: percocet/codeine Hx Substance Use Treatment: No Allergies/Home Meds Allergies/Adverse Reactions: Allergies No Known Allergies Allergy (Verified 05/28/18 05:36) Home Medications: Home Meds Medication Instructions Recorded Confirmed No Known Home Med 04/26/12 05/28/18 Review of Systems - Review of Systems Systems not reviewed;Unavailable: Other Psychiatric: Anxiety, Other (hallucinations ) Physical Exam - Physical Exam Physical Exam Limitations: Clinical Condition (A more complete PE is unable to obtain due to the patients clinical condition. ) Vital Signs Reviewed: Yes Vital Signs Temp Pulse Resp BP Pulse Ox 05/28/18 15:05 99 F 164 H 20 165/72 H 97 Temperature: Afebrile Blood Pressure: Hypertensive Pulse: Tachycardic Respiratory Rate: Normal Appearance: Positive for: Well-Appearing, Non-Toxic Mental Status: Positive for: Agitated - Systems Exam Head: Present: Atraumatic, Normocephalic Pupils: Present: PERRL Extroacular Muscles: Present: EOMI Conjunctiva: Present: Normal Mouth: Present: Moist Mucous Membranes Neck: Present: Normal Range of Motion Respiratory/Chest: Present: Clear to Auscultation, Good Air Exchange. No: Respiratory Distress, Accessory Muscle Use Cardiovascular: Present: Tachycardic Abdomen: Present: Normal Bowel Sounds. No: Tenderness, Distention, Peritoneal Signs Upper Extremity: Present: Normal Inspection. No: Cyanosis, Edema Lower Extremity: Present: Normal Inspection. No: Edema Neurological: Present: GCS=15, Speech Normal Skin: Present: Warm, Dry, Normal Color. No: Rashes Psychiatric: Present: Alert, Agitated, Hallucinations (auditory hallucinations) Medical Decision Making ED Course and Treatment: 05/28/18 15:31 Impression: 17 year old male who presents to the emergency department with increased agitation and hallucinations. Differential Diagnosis included but are not limited to: Sympatomimetic Toxidrome Neuroleptic Muscular Syndrome Plan: -- Labs -- EKG -- Benadryl -- Haldol --Ativan --UDS --Lopressor --CXR --Normal Saline --ICU consult -- Urinalysis -- Reassess and disposition Prior Visits: Notes and results from previous visits were reviewed. Patient last seen in the ED on 05/27/18 and signed consent for voluntary psychiatric admission. Progress Notes: 05/28/18 18:00 Spoke to hospitalist, request speaking to call Dr. Zhu(PCP) for a consult. 05/28/18 18:15 Dr. Zhu requests (cardiology) and Dr. June(neuology) for consult. 05/28/18 18:[address]B. Vogel(switch house operator) who will come and evaluate patient. Restraint order renewed. 05/28/18 19:[address] Campos(switch house operator) whom after evaluating patient states patient does not meet eligibility for ICU admission at this time. He states patient will receive dantrolene and Ativan around the clock with close monitoring on telemetry floor. - Lab Interpretations I have reviewed the lab results: Yes - EKG Interpretation EKG Interpretation (Text): 05/28/18 18:19 EKG reviewed, shows: Sinus Tachycardia at 145 bpm. Interpreted by ED Physician: Yes Type: 12 lead EKG - Medication Orders Current Medication Orders: Discontinued Medications Diphenhydramine HCl (Benadryl) 50 mg IM STAT STA Stop: 05/28/18 15:34 Last Admin: 05/28/18 15:15 Dose: 50 mg IM Administration Charges Document 05/28/18 15:15 BB (Rec: 05/28/18 15:41 BB [id number]) Injection Site MAR Injection Site Left Vastus Lateralis Charges for Administration # of IM Administrations 1 Haloperidol Lactate (Haldol) 5 mg IVP STAT STA; Protocol Stop: 05/28/18 15:32 - Scribe Statement The provider has reviewed the documentation as recorded by the Danitza Ochoa Provider Scribe Attestation: All medical record entries made by the Scribe were at my direction and personally dictated by me. I have reviewed the chart and agree that the record accurately reflects my personal performance of the history, physical exam, medical decision making, and the department course for this patient. I have also personally directed, reviewed, and agree with the discharge instructions and disposition. Disposition/Present on Arrival - Present on Arrival Any Indicators Present on Arrival: No History of DVT/PE: No History of Uncontrolled Diabetes: No Urinary Catheter: No History of Decub. Ulcer: No History Surgical Site Infection Following: None - Disposition Have Diagnosis and Disposition been Completed?: Yes Diagnosis: Psychosis, Auditory hallucinations, Tachycardia Disposition Time: 18:40 Patient Plan: Admission Patient Problems: Current Active Problems Problem Status Onset Paranoia Acute Psychosis Acute Polysubstance abuse Acute Auditory hallucinations Acute Tachycardia Acute Condition: GUARDED
[2018-05-28 16:02] LABS: BASO # 0.01 K/mm3 (0.0-2.0); BASO % 0.1 % (0.0-3.0); GRAN # 12.86 (1.4-6.5); GRAN % 74.4 % (50.0-68.0); HEMOGLOBIN 15.9 g/dL (14.0-18.0); LYMPH # 2.2 (1.2-3.4); LYMPH % 12.8 % (22.0-35.0); MEAN CELL VOLUME 87.3 fl (80.0-105.0); MEAN CORPUSCULAR HEMOGLOBIN 31.7 pg (25.0-35.0); MEAN CORPUSCULAR HGB CONC 36.3 g/dl (31.0-37.0); MEAN PLATELET VOLUME 9.9 fl (7.0-11.0); MONO # 2.2 (0.1-0.6); MONO % 12.7 % (1.0-6.0); RBC 5.02 10^6/uL (3.5-6.1); RED CELL DISTRIBUTION WIDTH 11.9 % (11.5-14.5); WHITE BLOOD COUNT 17.3 10^3/uL (4.5-11.0)
[2018-05-28 16:18] LABS: ACETAMINOPHEN < 10.0 ug/ml (10.0-20.0); SALICYLATE < 1 mg/dL (2.0-20.0)
[2018-05-28 16:21] LABS: ALB/GLOB RATIO 1.4 (1.1-1.8); ALT/SGPT 21 U/L (7-56); AST/SGOT 57 U/L (17-59); BLOOD UREA NITROGEN 11 mg/dL (7-21); CALCIUM 9.9 mg/dL (8.4-10.5); GFR NON-AFRICAN AMERICAN > 60
[2018-05-28] MEDS ORDERED: Sodium Chloride 0.9% 1,000 ML IV STA (17:01)
[2018-05-28 17:44] LABS: URINE BILIRUBIN NEGATIVE (NEGATIVE); URINE BLOOD NEGATIVE (NEGATIVE); URINE GLUCOSE (UA) NEGATIVE (NEGATIVE); URINE LEUKOCYTE ESTERASE TRACE Leu/uL (NEGATIVE); URINE PROTEIN NEGATIVE mg/dL (<30 mg/dL); URINE UROBILINOGEN 0.2 E.U./dL (<1 E.U./dL)
[2018-05-28 17:46] LABS: URINE APPEARANCE CLEAR (CLEAR); URINE COLOR YELLOW (YELLOW)
[2018-05-28] MEDS ORDERED: Metoprolol 1 mg/ml Inj IVP STA (18:04)
[2018-05-28 18:09] LABS: TROPONIN I 0.02 ng/mL
[2018-05-28 18:13] LABS: BARBITURATES, UR NEGATIVE (NEGATIVE); BENZODIAZEPINES, UR NEGATIVE (NEGATIVE); OPIATES, UR NEGATIVE (NEGATIVE); PHENCYCLIDINE, UR NEGATIVE (NEGATIVE)
[2018-05-28 18:18] LABS: CK-MB 3.7 ng/mL (0.0-3.6)
--- NOTE | 2018-05-28 19:07 | CP.PCM.HP ---
History of Present Illness - History of Present Illness History of Present Illness: 17 year old male, previously unknown to me, who was initially seen on the psychiatry floor where he was admitted for hallucinations, disordered thinking and erratic behavior. Patient was extremely agitated, despite 4 point leather restraints and receiving Ativan, and Haldol. Patient's heart rate was running in the 140s-150s. Patient is unable to give any history. He has tested positive for cannibinoids. Present on Admission - Present on Admission Any Indicators Present on Admission: No History of DVT/PE: No History of Uncontrolled Diabetes: No Urinary Catheter: No Decubitus Ulcer Present: No Review of Systems - Review of Systems Systems not reviewed;Unavailable: Uncooperative Past Patient History - Infectious Disease Hx of Infectious Diseases: None - Tetanus Immunizations Tetanus Immunization: Unknown - Past Social History Smoking Status: Current Some Days Smoker - CARDIAC Hx Hypertension: No - PULMONARY Hx Tuberculosis: No - NEUROLOGICAL Hx Seizures: No - HEENT Hx HEENT Problems: No - RENAL Hx Chronic Kidney Disease: No - ENDOCRINE/METABOLIC Hx Endocrine Disorders: No - HEMATOLOGICAL/ONCOLOGICAL Hx Cancer: No - INTEGUMENTARY Hx Dermatological Problems: No - MUSCULOSKELETAL/RHEUMATOLOGICAL Hx Musculoskeletal Disorders: No - GASTROINTESTINAL Hx Gastrointestinal Disorders: No - GENITOURINARY/GYNECOLOGICAL Hx Sexually Transmitted Disorders: No - PSYCHIATRIC Hx Anxiety: Yes Hx Schizophrenia: Yes Hx Substance Use: Yes - SURGICAL HISTORY Hx Surgeries: No - ANESTHESIA Hx Anesthesia: No Meds Allergies/Adverse Reactions: Allergies Allergy/AdvReac Type Severity Reaction Status Date / Time haldol AdvReac sensitivity Uncoded 05/29/18 00:34 Physical Exam - Constitutional Appears: Agitated - Head Exam Head Exam: ATRAUMATIC, NORMOCEPHALIC - Cardiovascular Exam Cardiovascular Exam: Tachycardia, +S1, +S2 - Extremities Exam Extremities exam: Positive for: normal inspection - Neurological Exam Neurological exam: Altered Results - Vital Signs Recent Vital Signs: Last Vital Signs Temp 99 F 05/28/18 15:05 Pulse 146 H 05/28/18 18:25 Resp 20 05/28/18 18:25 BP 145/55 L 05/28/18 18:25 Pulse Ox 98 05/28/18 18:25 - Labs Result Diagrams: 05/30/18 05:30 05/31/18 06:30 Labs: Laboratory Results - last 24 hr 05/28/18 05/28/18 05/28/18 15:20 15:20 15:20 WBC 17.3 H D RBC 5.02 Hgb 15.9 Hct 43.8 MCV 87.3 MCH 31.7 MCHC 36.3 RDW 11.9 Plt Count 272 MPV 9.9 Gran % 74.4 H Lymph % (Auto) 12.8 L [place] % (Auto) 12.7 H Eos % (Auto) 0.0 L Baso % (Auto) 0.1 Gran # 12.86 H Lymph # (Auto) 2.2 [place] # (Auto) 2.2 H Eos # (Auto) 0.0 Baso # (Auto) 0.01 Sodium 139 Potassium 4.0 Chloride 103 Carbon Dioxide 23 Anion Gap 17 BUN 11 Creatinine 0.8 Est GFR ( Amer) > 60 Est GFR (Non-Af Amer) > 60 Random Glucose 113 H Calcium 9.9 Total Bilirubin 0.6 AST 57 ALT 21 Alkaline Phosphatase 65 Total Creatine Kinase CK-MB (CK-2) CK-MB (CK-2) % Troponin I Total Protein 8.4 H Albumin 5.0 H Globulin 3.4 Albumin/Globulin Ratio 1.4 Urine Color Urine Appearance Urine pH Ur Specific [place] Urine Protein Urine Glucose (UA) Urine Ketones Urine Blood Urine Nitrate Urine Bilirubin Urine Urobilinogen Ur Leukocyte Esterase Urine RBC Urine WBC Ur Epithelial Cells Salicylates < 1 L Urine Opiates Screen Urine Methadone Screen Acetaminophen < 10.0 L Ur Barbiturates Screen Ur Phencyclidine Scrn U Benzodiazepines Scrn U Oth Cocaine Metabols U Cannabinoids Screen 05/28/18 05/28/18 05/28/18 17:30 17:40 17:40 WBC RBC Hgb Hct MCV MCH MCHC RDW Plt Count MPV Gran % Lymph % (Auto) [place] % (Auto) Eos % (Auto) Baso % (Auto) Gran # Lymph # (Auto) [place] # (Auto) Eos # (Auto) Baso # (Auto) Sodium Potassium Chloride Carbon Dioxide Anion Gap BUN Creatinine Est GFR ( Amer) Est GFR (Non-Af Amer) Random Glucose Calcium Total Bilirubin AST ALT Alkaline Phosphatase Total Creatine Kinase 1555 H CK-MB (CK-2) 3.7 H CK-MB (CK-2) % Cancelled Troponin I 0.02 Total Protein Albumin Globulin Albumin/Globulin Ratio Urine Color Yellow Urine Appearance Clear Urine pH 6.0 Ur Specific [place] 1.025 Urine Protein Negative Urine Glucose (UA) Negative Urine Ketones Negative Urine Blood Negative Urine Nitrate Negative Urine Bilirubin Negative Urine Urobilinogen 0.2 Ur Leukocyte Esterase Trace H Urine RBC TEST NOT PERFORMED Urine WBC 5 - 10 Ur Epithelial Cells 3 - 4 Salicylates Urine Opiates Screen Negative Urine Methadone Screen Negative Acetaminophen Ur Barbiturates Screen Negative Ur Phencyclidine Scrn Negative U Benzodiazepines Scrn Negative U Oth Cocaine Metabols Negative U Cannabinoids Screen Positive H Assessment & Plan - Assessment and Plan (Free Text) Assessment: Acute psychosis Sinus Tachycardia Leukocytosis Increased CPK - rhabdomyolysis Plan: Patient is extremely agitated trying to get out of 4 point restraints despite receiving Ativan, and Haldol on the psychiatry floor. Pulse is running in 140s-150s. Consult Cardiology with Dr. Jha. Will consult neurology for altered mental state. Patient has history of drug abuse and tested positive for cannabinoids. Will consult infectious disease for leukocytosis. Urine and blood cultures to be sent. Patient with increased CPK, most likely secondary to rhabdomyolysis. Will start IV fluids.
[2018-05-28] MEDS ORDERED: Dextrose 5%/0.9% NS 1,000 ML IV SCH (19:15)
--- NOTE | 2018-05-28 19:23 | CARD ---
APPROVED REPORT Date of service: 05/28/2018 EKG Measurement Heart [id number] <Conclusion> Sinus tachycardia Otherwise normal ECG
--- NOTE | 2018-05-28 20:25 | CP.PCM.CON ---
<Migel Dill - Last Filed: 05/28/18 21:24> History of Present Illness - History of Present Illness History of Present Illness: Migel Dill DO, PGY-1 ICU Consult Note for Dr. David CC: worsening hallucinations/delusions, altered mental status despite antipsychotic treatment on psychiatry unit HPI: Mr. Hess is a 17 year old male with no known PMH who presented to ED from inpatient psychiatry unit for concern of worsening hallucinations/delusions, agitation, and altered mental status despite treatment with geodon and ativan. He received additional doses of ativan, haldol, and benadryl in ED with little improvement. On examination, patient is agitated, in four point restraints, and uncooperative with questioning and examination. Further history and physical examination were unattainable due to patient's altered state. Review of Systems - Review of Systems Systems not reviewed;Unavailable: Altered Mental Status, Psychotic Past Patient History - Infectious Disease Hx of Infectious Diseases: None - Tetanus Immunizations Tetanus Immunization: Unknown - Past Social History Smoking Status: Current Some Days Smoker - CARDIAC Hx Hypertension: No - PULMONARY Hx Tuberculosis: No - NEUROLOGICAL Hx Seizures: No - HEENT Hx HEENT Problems: No - RENAL Hx Chronic Kidney Disease: No - ENDOCRINE/METABOLIC Hx Endocrine Disorders: No - HEMATOLOGICAL/ONCOLOGICAL Hx Cancer: No - INTEGUMENTARY Hx Dermatological Problems: No - MUSCULOSKELETAL/RHEUMATOLOGICAL Hx Musculoskeletal Disorders: No - GASTROINTESTINAL Hx Gastrointestinal Disorders: No - GENITOURINARY/GYNECOLOGICAL Hx Sexually Transmitted Disorders: No - PSYCHIATRIC Hx Anxiety: Yes Hx Schizophrenia: Yes Hx Substance Use: Yes - SURGICAL HISTORY Hx Surgeries: No - ANESTHESIA Hx Anesthesia: No Meds Allergies/Adverse Reactions: Allergies Allergy/AdvReac Type Severity Reaction Status Date / Time No Known Allergies Allergy Verified 05/28/18 05:36 - Medications Medications: Current Medications Dextrose/Sodium Chloride (Dextrose 5%/0.9% Ns 1000 Ml) 1,000 mls @ 150 mls/hr IV .Q6H40M [facility] Physical Exam - Constitutional Appears: Agitated, Confused - Head Exam Head Exam: ATRAUMATIC, NORMOCEPHALIC - Cardiovascular Exam Cardiovascular Exam: Tachycardia - Extremities Exam Extremities exam: Positive for: normal inspection. Negative for: pedal edema - Neurological Exam Neurological exam: Altered - Psychiatric Exam Psychiatric exam: Agitated - Additional Findings Additional findings: in four point restraints, non-cooperative with examination, not alert to person, place, time or situation. He is clearly having active hallucinations/delusions. Results - Vital Signs Recent Vital Signs: Last Vital Signs Temp 99 F 05/28/18 19:28 Pulse 150 H 05/28/18 19:28 Resp 22 05/28/18 19:28 BP 105/56 L 05/28/18 19:28 Pulse Ox 100 05/28/18 19:28 - Labs Result Diagrams: 05/28/18 15:20 05/28/18 15:20 Labs: Laboratory Results - last 24 hr 05/28/18 05/28/18 05/28/18 15:20 15:20 15:20 WBC 17.3 H D RBC 5.02 Hgb 15.9 Hct 43.8 MCV 87.3 MCH 31.7 MCHC 36.3 RDW 11.9 Plt Count 272 MPV 9.9 Gran % 74.4 H Lymph % (Auto) 12.8 L [place] % (Auto) 12.7 H Eos % (Auto) 0.0 L Baso % (Auto) 0.1 Gran # 12.86 H Lymph # (Auto) 2.2 [place] # (Auto) 2.2 H Eos # (Auto) 0.0 Baso # (Auto) 0.01 Sodium 139 Potassium 4.0 Chloride 103 Carbon Dioxide 23 Anion Gap 17 BUN 11 Creatinine 0.8 Est GFR ( Amer) > 60 Est GFR (Non-Af Amer) > 60 Random Glucose 113 H Calcium 9.9 Total Bilirubin 0.6 AST 57 ALT 21 Alkaline Phosphatase 65 Total Creatine Kinase CK-MB (CK-2) CK-MB (CK-2) % Troponin I Total Protein 8.4 H Albumin 5.0 H Globulin 3.4 Albumin/Globulin Ratio 1.4 Urine Color Urine Appearance Urine pH Ur Specific [place] Urine Protein Urine Glucose (UA) Urine Ketones Urine Blood Urine Nitrate Urine Bilirubin Urine Urobilinogen Ur Leukocyte Esterase Urine RBC Urine WBC Ur Epithelial Cells Salicylates < 1 L Urine Opiates Screen Urine Methadone Screen Acetaminophen < 10.0 L Ur Barbiturates Screen Ur Phencyclidine Scrn Ur Amphetamines Screen U Benzodiazepines Scrn U Oth Cocaine Metabols U Cannabinoids Screen 05/28/18 05/28/18 05/28/18 17:30 17:40 17:40 WBC RBC Hgb Hct MCV MCH MCHC RDW Plt Count MPV Gran % Lymph % (Auto) [place] % (Auto) Eos % (Auto) Baso % (Auto) Gran # Lymph # (Auto) [place] # (Auto) Eos # (Auto) Baso # (Auto) Sodium Potassium Chloride Carbon Dioxide Anion Gap BUN Creatinine Est GFR ( Amer) Est GFR (Non-Af Amer) Random Glucose Calcium Total Bilirubin AST ALT Alkaline Phosphatase Total Creatine Kinase 1555 H CK-MB (CK-2) 3.7 H CK-MB (CK-2) % Cancelled Troponin I 0.02 Total Protein Albumin Globulin Albumin/Globulin Ratio Urine Color Yellow Urine Appearance Clear Urine pH 6.0 Ur Specific [place] 1.025 Urine Protein Negative Urine Glucose (UA) Negative Urine Ketones Negative Urine Blood Negative Urine Nitrate Negative Urine Bilirubin Negative Urine Urobilinogen 0.2 Ur Leukocyte Esterase Trace H Urine RBC TEST NOT PERFORMED Urine WBC 5 - 10 Ur Epithelial Cells 3 - 4 Salicylates Urine Opiates Screen Negative Urine Methadone Screen Negative Acetaminophen Ur Barbiturates Screen Negative Ur Phencyclidine Scrn Negative Ur Amphetamines Screen Negative U Benzodiazepines Scrn Negative U Oth Cocaine Metabols Negative U Cannabinoids Screen Positive H Assessment & Plan - Assessment and Plan (Free Text) Assessment: 17 yo M with no known PMH is admitted for worsening hallucinations/delusions, agitation, and altered mental status despite anti-psychotic and anxiolytic therapies while admitted to inpatient psychiatry. ICU consultation is requested for persistent tachycardia. Plan: Patient's persistent tachycardia is most likely 2/2 agitated, psychotic state. EKG is without signs of SVT, avNRT or other more concerning rhythm. MAP has been > 70 since admission. Leukocytosis is most likely reactionary 2/2 recent substance abuse. CK elevation noted but no signs of acute renal failure. Recommend starting aggressive fluid resuscitation and recheck CK in AM. Patient does not qualify for ICU care at this time. Further management per primary. Case and plan reviewed and discussed with my attending Dr. Frankie Dill, DO IM Resident PGY-1 <Bryce David - Last Filed: 05/29/18 00:12> Meds - Medications Medications: Current Medications Dexmedetomidine HCl (Precedex 400mcg/100ml) 400 mcg in 100 mls @ 3.402 mls/hr IV .Q24H PRN; Protocol PRN Reason: Agitation Sodium Chloride (Sodium Chloride 0.9%) 1,000 mls @ 125 mls/hr IV .Q8H ENRIQUE Lorazepam (Ativan) 2 mg IVP Q4H PRN; Protocol PRN Reason: Agitation Results - Vital Signs Recent Vital Signs: Last Vital Signs Temp 98.9 F 05/28/18 21:12 Pulse 134 H 05/28/18 21:45 Resp 22 05/28/18 21:45 BP 105/56 L 05/28/18 19:28 Pulse Ox 100 05/28/18 21:45 - Labs Result Diagrams: 05/28/18 15:20 05/28/18 15:20 Labs: Laboratory Results - last 24 hr 05/28/18 05/28/18 05/28/18 15:20 15:20 15:20 WBC 17.3 H D RBC 5.02 Hgb 15.9 Hct 43.8 MCV 87.3 MCH 31.7 MCHC 36.3 RDW 11.9 Plt Count 272 MPV 9.9 Gran % 74.4 H Lymph % (Auto) 12.8 L [place] % (Auto) 12.7 H Eos % (Auto) 0.0 L Baso % (Auto) 0.1 Gran # 12.86 H Lymph # (Auto) 2.2 [place] # (Auto) 2.2 H Eos # (Auto) 0.0 Baso # (Auto) 0.01 Sodium 139 Potassium 4.0 Chloride 103 Carbon Dioxide 23 Anion Gap 17 BUN 11 Creatinine 0.8 Est GFR ( Amer) > 60 Est GFR (Non-Af Amer) > 60 Random Glucose 113 H Calcium 9.9 Total Bilirubin 0.6 AST 57 ALT 21 Alkaline Phosphatase 65 Total Creatine Kinase CK-MB (CK-2) CK-MB (CK-2) % Troponin I Total Protein 8.4 H Albumin 5.0 H Globulin 3.4 Albumin/Globulin Ratio 1.4 Urine Color Urine Appearance Urine pH Ur Specific [place] Urine Protein Urine Glucose (UA) Urine Ketones Urine Blood Urine Nitrate Urine Bilirubin Urine Urobilinogen Ur Leukocyte Esterase Urine RBC Urine WBC Ur Epithelial Cells Salicylates < 1 L Urine Opiates Screen Urine Methadone Screen Acetaminophen < 10.0 L Ur Barbiturates Screen Ur Phencyclidine Scrn Ur Amphetamines Screen U Benzodiazepines Scrn U Oth Cocaine Metabols U Cannabinoids Screen 05/28/18 05/28/18 05/28/18 17:30 17:40 17:40 WBC RBC Hgb Hct MCV MCH MCHC RDW Plt Count MPV Gran % Lymph % (Auto) [place] % (Auto) Eos % (Auto) Baso % (Auto) Gran # Lymph # (Auto) [place] # (Auto) Eos # (Auto) Baso # (Auto) Sodium Potassium Chloride Carbon Dioxide Anion Gap BUN Creatinine Est GFR ( Amer) Est GFR (Non-Af Amer) Random Glucose Calcium Total Bilirubin AST ALT Alkaline Phosphatase Total Creatine Kinase 1555 H CK-MB (CK-2) 3.7 H CK-MB (CK-2) % Cancelled Troponin I 0.02 Total Protein Albumin Globulin Albumin/Globulin Ratio Urine Color Yellow Urine Appearance Clear Urine pH 6.0 Ur Specific [place] 1.025 Urine Protein Negative Urine Glucose (UA) Negative Urine Ketones Negative Urine Blood Negative Urine Nitrate Negative Urine Bilirubin Negative Urine Urobilinogen 0.2 Ur Leukocyte Esterase Trace H Urine RBC TEST NOT PERFORMED Urine WBC 5 - 10 Ur Epithelial Cells 3 - 4 Salicylates Urine Opiates Screen Negative Urine Methadone Screen Negative Acetaminophen Ur Barbiturates Screen Negative Ur Phencyclidine Scrn Negative Ur Amphetamines Screen Negative U Benzodiazepines Scrn Negative U Oth Cocaine Metabols Negative U Cannabinoids Screen Positive H Attending/Attestation - Attestation I have personally seen and examined this patient.: Yes I have fully participated in the care of the patient.: Yes I have reviewed all pertinent clinical information: Yes Notes (Text): 05/29/18 00:10 Pt. was reevaluated and found to be extremely agitated and psychotic without response to ativan. Pt. was transferred to ICU and started on precedex gtt. Possible cause of psychosis is PCP. ICU staff instructed to keep in a quiet room with lights off.
[2018-05-28] MEDS ORDERED: DiphenhydrAMINE 50 mg/ml Inj IM ONE (22:34)
[2018-05-28] MEDS ORDERED: DiphenhydrAMINE 50 mg/ml Inj ONE (22:40)
--- NOTE | 2018-05-28 23:12 | CP.PCM.PN ---
<Adiel Thomson - Last Filed: 05/28/18 23:43> Subjective - Date & Time of Evaluation Date of Evaluation: 05/28/18 Time of Evaluation: 22:03 - Subjective Subjective: A nayana bob was called on the pt for aggressive behavior. Pt was agitated, pulling at his restraints, trying to get out of bed. Pt was screaming obscenities, grabbing nurses arms when they were taking his vitals. Pt was biting at his restraints, pillows, blankets. Pt was given ativan and Benadryl but remained combative. Objective - Vital Signs/Intake and Output Vital Signs (last 24 hours): Temp Pulse Resp BP Pulse Ox 98.9 F 134 H 22 105/56 L 100 05/28/18 21:12 05/28/18 21:45 05/28/18 21:45 05/28/18 19:28 05/28/18 21:45 - Medications Medications: Current Medications Dextrose/Sodium Chloride (Dextrose 5%/0.9% Ns 1000 Ml) 1,000 mls @ 150 mls/hr IV .Q6H40M [facility] Last Admin: 05/28/18 20:47 Dose: 150 mls/hr Lorazepam (Ativan) 2 mg IVP Q4H PRN; Protocol PRN Reason: Agitation - Labs Labs: 05/28/18 15:20 05/28/18 15:20 - Constitutional Appears: Combative, Agitated - Head Exam Additional comments: pt severely agitated, unable to perform a physical exam - Psychiatric Exam Psychiatric exam: Anxious Assessment and Plan - Assessment and Plan (Free Text) Assessment: pt is a 17yo with a history of psychosis who is agitated and combative Plan: Pt given Ativan and Benadryl, but remains agitated and psychotic. Spoke with pt primary care physician, who requested pt be transferred to ICU and placed on a sedative drip to control his severe agitation. <Regi Dumont - Last Filed: 05/29/18 01:49> Objective - Vital Signs/Intake and Output Vital Signs (last 24 hours): Temp Pulse Resp BP Pulse Ox 98.9 F 134 H 22 105/56 L 100 05/28/18 21:12 05/28/18 21:45 05/28/18 21:45 05/28/18 19:28 05/28/18 21:45 - Medications Medications: Current Medications Dexmedetomidine HCl (Precedex 400mcg/100ml) 400 mcg in 100 mls @ 3.402 mls/hr IV .Q24H PRN; Protocol PRN Reason: Agitation Last Admin: 05/28/18 23:25 Dose: 0.2 mcg/kg/hr, 3.402 mls/hr Sodium Chloride (Sodium Chloride 0.9%) 1,000 mls @ 125 mls/hr IV .Q8H [facility] Last Admin: 05/29/18 00:55 Dose: 125 mls/hr Lorazepam (Ativan) 2 mg IVP Q4H PRN; Protocol PRN Reason: Agitation - Labs Labs: 05/28/18 15:20 05/28/18 15:20 Attending/Attestation - Attestation I have personally seen and examined this patient.: Yes I have fully participated in the care of the patient.: Yes I have reviewed all pertinent clinical information, including history, physical exam and plan: Yes Notes (Text): 05/29/18 01:42 Pt seen with the resident by the bedside. Case discussed in detail. Case was also discussed with the pt's attending,and at his request,he was ref erred to Dr Linder for transfer to the ICU.
[2018-05-28] MEDS ORDERED: Dexmedetomidine 400mcg/100mL 400 MCG/100 ML BOTTLE ONE (23:22)
[2018-05-28] MEDS: Dexmedetomidine 400mcg/100mL 400 MCG/100 ML BOTTLE IV PRN (23:25)
[2018-05-28] MEDS ORDERED: Midazolam 2 MG/2 ML VIAL IVP ONE (23:57)
[2018-05-28] MEDS ORDERED: Midazolam 2 MG/2 ML VIAL ONE (23:58)
[2018-05-29] MEDS ORDERED: Midazolam 2 MG/2 ML VIAL IVP ONE (00:22)
[2018-05-29] MEDS: Sodium Chloride 0.9% 1,000 ML IV SCH ×3 (00:55→19:04)
[2018-05-29] MEDS: Dexmedetomidine 400mcg/100mL 400 MCG/100 ML BOTTLE IV PRN ×2 (06:42→10:14)
[2018-05-29 06:51] LABS: BASO # 0.02 K/mm3 (0.0-2.0); BASO % 0.2 % (0.0-3.0); EOS % 0.1 % (1.5-5.0); GRAN # 8.27 (1.4-6.5); GRAN % 68.6 % (50.0-68.0); LYMPH # 2.1 (1.2-3.4); LYMPH % 17.2 % (22.0-35.0); MEAN CELL VOLUME 87.8 fl (80.0-105.0); MEAN CORPUSCULAR HEMOGLOBIN 31.1 pg (25.0-35.0); MEAN CORPUSCULAR HGB CONC 35.4 g/dl (31.0-37.0); MEAN PLATELET VOLUME 9.1 fl (7.0-11.0); MONO # 1.7 (0.1-0.6); MONO % 13.9 % (1.0-6.0); RBC 4.5 10^6/uL (3.5-6.1); WHITE BLOOD COUNT 12.1 10^3/uL (4.5-11.0)
--- NOTE | 2018-05-29 06:51 | CP.PCM.CON ---
<Dorita Coronel - Last Filed: 05/29/18 10:18> History of Present Illness - History of Present Illness History of Present Illness: Infectious Disease Consult for Yann Peacock PGY3 This is a 17yo M with past medical history of ADHD, conduct disorder, polysu bstance abuse who was admitted from psych for agitation. Patient was very combative in psych. He was given multiple doses of Ativan and Haldol and thorazine. Patient became tachycardic and was placed on 4 point restraints. He was then transferred to ICU and placed on precedex drip. Patient is agitated this am. He denies chest pain, shortness of breath, nausea/vomiting/diarrhea, fever/chills, numbness/tingling, dysuria or hematuria. Patient denies IV drug use. Past medical history: ADHD, conduct disorder, polysubstance abuse Past surgical history: Denies Home meds: Reviewed Allergies: Haldol Social history: Polysubstance abuse (adderall, Xanax, marijuana), smokes <1ppd Family history: Pt reports polysubstance abuse in his family. denies HTN, DM or cancer in family Review of Systems - Review of Systems Review of Systems: 12 point ROS reviewed as per HPI and is otherwise negative. Past Patient History - Infectious Disease Hx of Infectious Diseases: None - Tetanus Immunizations Tetanus Immunization: Unknown - Past Social History Smoking Status: Current Some Days Smoker - CARDIAC Hx Hypertension: No - PULMONARY Hx Tuberculosis: No - NEUROLOGICAL Hx Seizures: No - HEENT Hx HEENT Problems: No - RENAL Hx Chronic Kidney Disease: No - ENDOCRINE/METABOLIC Hx Endocrine Disorders: No - HEMATOLOGICAL/ONCOLOGICAL Hx Cancer: No - INTEGUMENTARY Hx Dermatological Problems: No - MUSCULOSKELETAL/RHEUMATOLOGICAL Hx Musculoskeletal Disorders: No Hx Falls: No - GASTROINTESTINAL Hx Gastrointestinal Disorders: No - GENITOURINARY/GYNECOLOGICAL Hx Sexually Transmitted Disorders: No - PSYCHIATRIC Hx Anxiety: Yes Hx Schizophrenia: Yes Hx Substance Use: Yes - SURGICAL HISTORY Hx Surgeries: No - ANESTHESIA Hx Anesthesia: No Meds Allergies/Adverse Reactions: Allergies Allergy/AdvReac Type Severity Reaction Status Date / Time haldol AdvReac sensitivity Uncoded 05/29/18 00:34 - Medications Medications: Current Medications Heparin Sodium (Porcine) (Heparin) 5,000 units SC Q8 ENRIQUE; Protocol Last Admin: 05/29/18 06:40 Dose: 5,000 units Dexmedetomidine HCl (Precedex 400mcg/100ml) 400 mcg in 100 mls @ 3.402 mls/hr IV .Q24H PRN; Protocol PRN Reason: Agitation Last Admin: 05/29/18 06:42 Dose: 0.6 mcg/kg/hr, 10.206 mls/hr Sodium Chloride (Sodium Chloride 0.9%) 1,000 mls @ 125 mls/hr IV .Q8H ENRI[facility] Last Admin: 05/29/18 06:41 Dose: 125 mls/hr Lorazepam (Ativan) 2 mg IVP Q4H PRN; Protocol PRN Reason: Agitation Last Admin: 05/29/18 06:00 Dose: 2 mg Pantoprazole Sodium (Protonix Inj) 40 mg IVP DAILY [facility] Physical Exam - Constitutional Appears: No Acute Distress, Agitated - Head Exam Head Exam: ATRAUMATIC, NORMAL INSPECTION, NORMOCEPHALIC - Eye Exam Eye Exam: Normal appearance, PERRL Pupil Exam: NORMAL ACCOMODATION, PERRL - ENT Exam ENT Exam: Mucous Membranes Dry - Respiratory Exam Respiratory Exam: Clear to Auscultation Bilateral, NORMAL BREATHING PATTERN. absent: Rales, Rhonchi, Wheezes - Cardiovascular Exam Cardiovascular Exam: Tachycardia, REGULAR RHYTHM, +S1, +S2. absent: Gallop, Rubs, Systolic Murmur - GI/Abdominal Exam GI & Abdominal Exam: Normal Bowel Sounds, Soft. absent: Mass, Rebound, Rigid, Tenderness - Extremities Exam Extremities exam: Positive for: normal inspection. Negative for: calf tenderness, pedal edema - Neurological Exam Neurological exam: Alert, CN II-XII Intact, Oriented x3 - Psychiatric Exam Psychiatric exam: Normal Affect, Normal Mood - Skin Skin Exam: Dry, Warm Additional comments: some redness on R dorsal hand Results - Vital Signs Recent Vital Signs: Last Vital Signs Temp 98.9 F 05/28/18 21:12 Pulse 134 H 05/28/18 21:45 Resp 24 05/29/18 00:28 BP 105/56 L 05/28/18 19:28 Pulse Ox 100 05/28/18 21:45 - Labs Result Diagrams: 05/29/18 06:20 05/29/18 06:20 Labs: Laboratory Results - last 24 hr 05/28/18 05/28/1805/28/18 15:20 15:20 15:20 WBC 17.3 H D RBC 5.02 Hgb 15.9 Hct 43.8 MCV 87.3 MCH 31.7 MCHC 36.3 RDW 11.9 Plt Count 272 MPV 9.9 Gran % 74.4 H Lymph % (Auto) 12.8 L [place] % (Auto) 12.7 H Eos % (Auto) 0.0 L Baso % (Auto) 0.1 Gran # 12.86 H Lymph # (Auto) 2.2 [place] # (Auto) 2.2 H Eos # (Auto) 0.0 Baso # (Auto) 0.01 Sodium 139 Potassium 4.0 Chloride 103 Carbon Dioxide 23 Anion Gap 17 BUN 11 Creatinine 0.8 Est GFR ( Amer) > 60 Est GFR (Non-Af Amer) > 60 Random Glucose 113 H Calcium 9.9 Total Bilirubin 0.6 AST 57 ALT 21 Alkaline Phosphatase 65 Total Creatine Kinase CK-MB (CK-2) CK-MB (CK-2) % Troponin I Total Protein 8.4 H Albumin 5.0 H Globulin 3.4 Albumin/Globulin Ratio 1.4 Urine Color Urine Appearance Urine pH Ur Specific [place] Urine Protein Urine Glucose (UA) Urine Ketones Urine Blood Urine Nitrate Urine Bilirubin Urine Urobilinogen Ur Leukocyte Esterase Urine RBC Urine WBC Ur Epithelial Cells Salicylates < 1 L Urine Opiates Screen Urine Methadone Screen Acetaminophen < 10.0 L Ur Barbiturates Screen Ur Phencyclidine Scrn Ur Amphetamines Screen U Benzodiazepines Scrn U Oth Cocaine Metabols U Cannabinoids Screen 05/28/18 05/28/18 05/28/18 17:30 17:40 17:40 WBC RBC Hgb Hct MCV MCH MCHC RDW Plt Count MPV Gran % Lymph % (Auto) [place] % (Auto) Eos % (Auto) Baso % (Auto) Gran # Lymph # (Auto) [place] # (Auto) Eos # (Auto) Baso # (Auto) Sodium Potassium Chloride Carbon Dioxide Anion Gap BUN Creatinine Est GFR ( Amer) Est GFR (Non-Af Amer) Random Glucose Calcium Total Bilirubin AST ALT Alkaline Phosphatase Total Creatine Kinase 1555 H CK-MB (CK-2) 3.7 H CK-MB (CK-2) % Cancelled Troponin I 0.02 Total Protein Albumin Globulin Albumin/Globulin Ratio Urine Color Yellow Urine Appearance Clear Urine pH 6.0 Ur Specific [place] 1.025 Urine Protein Negative Urine Glucose (UA) Negative Urine Ketones Negative Urine Blood Negative Urine Nitrate Negative Urine Bilirubin Negative Urine Urobilinogen 0.2 Ur Leukocyte Esterase Trace H Urine RBC TEST NOT PERFORMED Urine WBC 5 - 10 Ur Epithelial Cells 3 - 4 Salicylates Urine Opiates Screen Negative Urine Methadone Screen Negative Acetaminophen Ur Barbiturates Screen Negative Ur Phencyclidine Scrn Negative Ur Amphetamines Screen Negative U Benzodiazepines Scrn Negative U Oth Cocaine Metabols Negative U Cannabinoids Screen Positive H Assessment & Plan - Assessment and Plan (Free Text) Assessment: 1. Leukocytosis - can be secondary to rhabdomyolysis and agitation 2. Rhabdomyolysis 3. Psychosis 4. Hx of polysubstance abuse Plan: Septic work up pending. Will check blood culture, urine culture, procal, RPR and HIV. Continue IV hydration. WBC is trending down. CXR is negative. Will continue to monitor this patient clinically. Case seen, discussed and reviewed with Dr. Griffiths. Yann Coronel PGY3 <Chuy Griffiths - Last Filed: 05/29/18 17:40> Meds - Medications Medications: Current Medications Heparin Sodium (Porcine) (Heparin) 5,000 units SC Q8 ENRIQUE; Protocol Last Admin: 05/29/18 13:35 Dose: 5,000 units Lorazepam (Ativan) 1 mg IVP Q4H PRN; Protocol PRN Reason: Agitation Last Admin: 05/29/18 16:29 Dose: 1 mg Pantoprazole Sodium (Protonix Inj) 40 mg IVP DAILY [facility] Last Admin: 05/29/18 09:26 Dose: 40 mg Propranolol HCl (Inderal) 10 mg PO TID [facility] Last Admin: 05/29/18 17:27 Dose: 10 mg Results - Vital Signs Recent Vital Signs: Last Vital Signs Temp 98.8 F 05/29/18 16:02 Pulse 94 H 05/29/18 17:27 Resp 14 05/29/18 15:00 BP 120/76 05/29/18 17:27 Pulse Ox 97 05/29/18 13:00 - Labs Result Diagrams: 05/29/18 06:20 05/29/18 06:20 Labs: Laboratory Results - last 24 hr 05/28/18 05/28/18 05/28/18 17:30 17:40 17:40 WBC RBC Hgb Hct MCV MCH MCHC RDW Plt Count MPV Gran % Lymph % (Auto) [place] % (Auto) Eos % (Auto) Baso % (Auto) Gran # Lymph # (Auto) [place] # (Auto) Eos # (Auto) Baso # (Auto) ESR Sodium Potassium Chloride Carbon Dioxide Anion Gap BUN Creatinine Est GFR ( Amer) Est GFR (Non-Af Amer) Random Glucose Calcium Phosphorus Magnesium Total Bilirubin AST ALT Alkaline Phosphatase Total Creatine Kinase 1555 H CK-MB (CK-2) 3.7 H CK-MB (CK-2) % Cancelled Troponin I 0.02 Total Protein Albumin Globulin Albumin/Globulin Ratio Procalcitonin Free T4 TSH 3rd Generation Urine Color Yellow Urine Appearance Clear Urine pH 6.0 Ur Specific [place] 1.025 Urine Protein Negative Urine Glucose (UA) Negative Urine Ketones Negative Urine Blood Negative Urine Nitrate Negative Urine Bilirubin Negative Urine Urobilinogen 0.2 Ur Leukocyte Esterase Trace H Urine RBC TEST NOT PERFORMED Urine WBC 5 - 10 Ur Epithelial Cells 3 - 4 Urine Opiates Screen Negative Urine Methadone Screen Negative Ur Barbiturates Screen Negative Ur Phencyclidine Scrn Negative Ur Amphetamines Screen Negative U Benzodiazepines Scrn Negative U Oth Cocaine Metabols Negative U Cannabinoids Screen Positive H RPR 05/29/18 05/29/18 05/29/18 06:20 06:20 06:20 WBC 12.1 H D RBC 4.50 Hgb 14.0 Hct 39.5 L MCV 87.8 MCH 31.1 MCHC 35.4 RDW 12.0 Plt Count 221 MPV 9.1 Gran % 68.6 H Lymph % (Auto) 17.2 L [place] % (Auto) 13.9 H Eos % (Auto) 0.1 L Baso % (Auto) 0.2 Gran # 8.27 H Lymph # (Auto) 2.1 [place] # (Auto) 1.7 H Eos # (Auto) 0.0 Baso # (Auto) 0.02 ESR Sodium 140 Potassium 4.2 Chloride 108 H Carbon Dioxide 21 Anion Gap 15 BUN 14 Creatinine 0.8 Est GFR ( Amer) > 60 Est GFR (Non-Af Amer) > 60 Random Glucose 96 Calcium 9.0 Phosphorus 5.2 H Magnesium 2.2 Total Bilirubin 1.1 AST 161 H D ALT 42 Alkaline Phosphatase 55 Total Creatine Kinase 69558 H CK-MB (CK-2) 12.1 H CK-MB (CK-2) % 0.1 L Troponin I Total Protein 7.0 Albumin 4.0 Globulin 3.0 Albumin/Globulin Ratio 1.3 Procalcitonin Free T4 2.01 TSH 3rd Generation Urine Color Urine Appearance Urine pH Ur Specific [place] Urine Protein Urine Glucose (UA) Urine Ketones Urine Blood Urine Nitrate Urine Bilirubin Urine Urobilinogen Ur Leukocyte Esterase Urine RBC Urine WBC Ur Epithelial Cells Urine Opiates Screen Urine Methadone Screen Ur Barbiturates Screen Ur Phencyclidine Scrn Ur Amphetamines Screen U Benzodiazepines Scrn U Oth Cocaine Metabols U Cannabinoids Screen RPR 05/29/18 05/29/18 05/29/18 06:20 08:00 08:00 WBC RBC Hgb Hct MCV MCH MCHC RDW Plt Count MPV Gran % Lymph % (Auto) [place] % (Auto) Eos % (Auto) Baso % (Auto) Gran # Lymph # (Auto) [place] # (Auto) Eos # (Auto) Baso # (Auto) ESR 6 Sodium Potassium Chloride Carbon Dioxide Anion Gap BUN Creatinine Est GFR ( Amer) Est GFR (Non-Af Amer) Random Glucose Calcium Phosphorus Magnesium Total Bilirubin AST ALT Alkaline Phosphatase Total Creatine Kinase CK-MB (CK-2) CK-MB (CK-2) % Troponin I Total Protein Albumin Globulin Albumin/Globulin Ratio Procalcitonin 0.10 L Free T4 TSH 3rd Generation 1.25 Urine Color Urine Appearance Urine pH Ur Specific [place] Urine Protein Urine Glucose (UA) Urine Ketones Urine Blood Urine Nitrate Urine Bilirubin Urine Urobilinogen Ur Leukocyte Esterase Urine RBC Urine WBC Ur Epithelial Cells Urine Opiates Screen Urine Methadone Screen Ur Barbiturates Screen Ur Phencyclidine Scrn Ur Amphetamines Screen U Benzodiazepines Scrn U Oth Cocaine Metabols U Cannabinoids Screen RPR 05/29/18 08:00 WBC RBC Hgb Hct MCV MCH MCHC RDW Plt Count MPV Gran % Lymph % (Auto) [place] % (Auto) Eos % (Auto) Baso % (Auto) Gran # Lymph # (Auto) [place] # (Auto) Eos # (Auto) Baso # (Auto) ESR Sodium Potassium Chloride Carbon Dioxide Anion Gap BUN Creatinine Est GFR ( Amer) Est GFR (Non-Af Amer) Random Glucose Calcium Phosphorus Magnesium Total Bilirubin AST ALT Alkaline Phosphatase Total Creatine Kinase CK-MB (CK-2) CK-MB (CK-2) % Troponin I Total Protein Albumin Globulin Albumin/Globulin Ratio Procalcitonin Free T4 TSH 3rd Generation Urine Color Urine Appearance Urine pH Ur Specific [place] Urine Protein Urine Glucose (UA) Urine Ketones Urine Blood Urine Nitrate Urine Bilirubin Urine Urobilinogen Ur Leukocyte Esterase Urine RBC Urine WBC Ur Epithelial Cells Urine Opiates Screen Urine Methadone Screen Ur Barbiturates Screen Ur Phencyclidine Scrn Ur Amphetamines Screen U Benzodiazepines Scrn U Oth Cocaine Metabols U Cannabinoids Screen RPR Nonreactive Assessment & Plan - Assessment and Plan (Free Text) Plan: Infectious Diseases Attending Physician Attestation Patient seen and examined, discussed with medical research assistant. I have reviewed the patient's history of present illness, past medical, family and social histories, personal history, physical exam, lab findings and imaging studies. I agree with the above findings, assessment and plan. In addition, patient has SIRS probably reactive in this patient with psychosis, R/O drugs-related. Follow up blood, urine cx, PCT. CXR is negative. Will monitor off antibiotics. Follow up HIV test.
[2018-05-29 07:05] LABS: ALB/GLOB RATIO 1.3 (1.1-1.8); ALT/SGPT 42 U/L (7-56); AST/SGOT 161 U/L (17-59); BLOOD UREA NITROGEN 14 mg/dL (7-21); GFR NON-AFRICAN AMERICAN > 60
[2018-05-29] MEDS ORDERED: Sodium Chloride 0.9% 1,000 ML IV SCH (07:36)
[2018-05-29 08:53] LABS: CK MB% 0.1 % (2.5-3.0); CK-MB 12.1 ng/mL (0.0-3.6)
--- NOTE | 2018-05-29 08:57 | CP.CCUPN ---
<Akiko Rodríguez - Last Filed: 05/29/18 10:12> CCU Subjective - Physician Review Subjective (Free Text): CRITICAL CARE PROGRESS NOTE FOR DR. AMANDA Rodríguez PGY-1 Pt seen and examined at bedside this am. He is AxO x 2, talking with mumbled words, however making sense, appears drowsy. He reports he takes adderall, smokes weed and takes xanax regularly. He denies any IV or other drugs. He is still on 4 point leather restraints. He is currently on precedex drip @0.6mcg. He denies 12 point ROS. CCU Objective - Vital Signs / Intake & Output Intake and Output (Last 8hrs): Intake & Output 05/28/18 05/29/18 05/29/18 22:59 06:59 14:59 Intake Total 100 Balance 100 Weight 68.039 kg 70.307 kg Intake: IV 100 - Physical Exam Head: Positive for: Atraumatic, Normocephalic Pupils: Positive for: PERRL Extroacular Muscles: Positive for: EOMI Conjunctiva: Positive for: Normal Mouth: Positive for: Moist Mucous Membranes Neck: Positive for: Normal Range of Motion Respiratory/Chest: Positive for: Clear to Auscultation, Good Air Exchange. Negative for: Respiratory Distress, Accessory Muscle Use Cardiovascular: Positive for: Tachycardic Abdomen: Positive for: Normal Bowel Sounds. Negative for: Tenderness, Distention, Peritoneal Signs Upper Extremity: Positive for: Normal Inspection. Negative for: Cyanosis, Edema Lower Extremity: Positive for: Normal Inspection. Negative for: Edema Neurological: Positive for: GCS=15, Speech Normal Skin: Positive for: Warm, Dry, Normal Color, Other (multiple tatoos noted on b/l ue, upper chest). Negative for: Rashes Psychiatric: Positive for: Alert, Agitated, Hallucinations (auditory hallucinations), Other (slurred spee. AxOx2 ) - Medications Active Medications: Active Medications Generic Name Dose Route Start Last Admin Trade Name Freq PRN Reason Stop Dose Admin Heparin Sodium (Porcine) 5,000 units 05/29/18 06:00 05/29/18 06:40 Heparin SC 5,000 units Q8 ENRIQUE Administration Protocol Dexmedetomidine HCl 400 mcg in 100 mls @ 3.402 mls/hr 05/28/18 23:26 05/29/18 06:42 Precedex 400mcg/100ml IV 0.6 mcg/kg/hr .Q24H PRN 10.206 mls/hr Agitation Administration Protocol 0.2 MCG/KG/HR Sodium Chloride 1,000 mls @ 175 mls/hr 05/29/18 07:36 Sodium Chloride 0.9% IV .[id number] [facility] Lorazepam 2 mg 05/28/18 20:36 05/29/18 06:00 Ativan IVP 2 mg Q4H PRN Administration Agitation Protocol Pantoprazole Sodium 40 mg 05/29/18 10:00 Protonix Inj IVP DAILY ENRIQUE - Patient Studies Lab Studies: Lab Studies 05/29/18 05/29/18 05/29/18 Range/Units 06:20 06:20 06:20 WBC 12.1 H D (4.5-11.0) 10^3/uL RBC 4.50 (3.5-6.1) 10^6/uL Hgb 14.0 (14.0-18.0) g/dL Hct 39.5 L (42.0-52.0) % MCV 87.8 (80.0-105.0) fl MCH 31.1 (25.0-35.0) pg MCHC 35.4 (31.0-37.0) g/dl RDW 12.0 (11.5-14.5) % Plt Count 221 (120.0-450.0) 10^3/uL MPV 9.1 (7.0-11.0) fl Gran % 68.6 H (50.0-68.0) % Lymph % (Auto) 17.2 L (22.0-35.0) % [place] % (Auto) 13.9 H (1.0-6.0) % Eos % (Auto) 0.1 L (1.5-5.0) % Baso % (Auto) 0.2 (0.0-3.0) % Gran # 8.27 H (1.4-6.5) Lymph # (Auto) 2.1 (1.2-3.4) [place] # (Auto) 1.7 H (0.1-0.6) Eos # (Auto) 0.0 (0.0-0.7) Baso # (Auto) 0.02 (0.0-2.0) K/mm3 Sodium 140 (132-148) mmol/L Potassium 4.2 (3.6-5.0) mmol/L Chloride 108 H (98-107) mmol/L Carbon Dioxide 21 (21-33) mmol/L Anion Gap 15 (10-20) BUN 14 (7-21) mg/dL Creatinine 0.8 (0.8-1.5) mg/dl Est GFR ( Amer) > 60 Est GFR (Non-Af Amer) > 60 Random Glucose 96 (70-110) mg/dL Calcium 9.0 (8.4-10.5) mg/dL Phosphorus 5.2 H (2.5-4.5) mg/dL Magnesium 2.2 (1.7-2.2) mg/dL Total Bilirubin 1.1 (0.2-1.3) mg/dL AST 161 H D (17-59) U/L ALT 42 (7-56) U/L Alkaline Phosphatase 55 (38-126) U/L Total Creatine Kinase 52437 H (35-230) U/L CK-MB (CK-2) (0.0-3.6) ng/mL CK-MB (CK-2) % Troponin I ng/mL Total Protein 7.0 (5.8-8.3) g/dL Albumin 4.0 (3.0-4.8) g/dL Globulin 3.0 gm/dL Albumin/Globulin Ratio 1.3 (1.1-1.8) Free T4 2.01 (0.78-2.19) ng/dL Urine Color (YELLOW) Urine Appearance (CLEAR) Urine pH (4.7-8.0) Ur Specific [place] (1.005-1.035) Urine Protein (<30 mg/dL) mg/dL Urine Glucose (UA) (NEGATIVE) mg/dL Urine Ketones (NEGATIVE) mg/dL Urine Blood (NEGATIVE) Urine Nitrate (NEGATIVE) Urine Bilirubin (NEGATIVE) Urine Urobilinogen (<1 E.U./dL) E.U./dL Ur Leukocyte Esterase (NEGATIVE) Eddie/uL Urine RBC Urine WBC (0-6) /hpf Ur Epithelial Cells (0-5) /hpf Salicylates (2.0-20.0) mg/dL Urine Opiates Screen (NEGATIVE) Urine Methadone Screen (NEGATIVE) Acetaminophen (10.0-20.0) ug/ml Ur Barbiturates Screen (NEGATIVE) Ur Phencyclidine Scrn (NEGATIVE) Ur Amphetamines Screen (NEGATIVE) U Benzodiazepines Scrn (NEGATIVE) U Oth Cocaine Metabols (NEGATIVE) U Cannabinoids Screen (NEGATIVE) 05/28/18 05/28/18 05/28/18 Range/Units 17:40 17:40 17:30 WBC (4.5-11.0) 10^3/uL RBC (3.5-6.1) 10^6/uL Hgb (14.0-18.0) g/dL Hct (42.0-52.0) % MCV (80.0-105.0) fl MCH (25.0-35.0) pg MCHC (31.0-37.0) g/dl RDW (11.5-14.5) % Plt Count (120.0-450.0) 10^3/uL MPV (7.0-11.0) fl Gran % (50.0-68.0) % Lymph % (Auto) (22.0-35.0) % [place] % (Auto) (1.0-6.0) % Eos % (Auto) (1.5-5.0) % Baso % (Auto) (0.0-3.0) % Gran # (1.4-6.5) Lymph # (Auto) (1.2-3.4) [place] # (Auto) (0.1-0.6) Eos # (Auto) (0.0-0.7) Baso # (Auto) (0.0-2.0) K/mm3 Sodium (132-148) mmol/L Potassium (3.6-5.0) mmol/L Chloride (98-107) mmol/L Carbon Dioxide (21-33) mmol/L Anion Gap (10-20) BUN (7-21) mg/dL Creatinine (0.8-1.5) mg/dl Est GFR ( Amer) Est GFR (Non-Af Amer) Random Glucose (70-110) mg/dL Calcium (8.4-10.5) mg/dL Phosphorus (2.5-4.5) mg/dL Magnesium (1.7-2.2) mg/dL Total Bilirubin (0.2-1.3) mg/dL AST (17-59) U/L ALT (7-56) U/L Alkaline Phosphatase (38-126) U/L Total Creatine Kinase 1555 H (35-230) U/L CK-MB (CK-2) 3.7 H (0.0-3.6) ng/mL CK-MB (CK-2) % Cancelled Troponin I 0.02 ng/mL Total Protein (5.8-8.3) g/dL Albumin (3.0-4.8) g/dL Globulin gm/dL Albumin/Globulin Ratio (1.1-1.8) Free T4 (0.78-2.19) ng/dL Urine Color Yellow (YELLOW) Urine Appearance Clear (CLEAR) Urine pH 6.0 (4.7-8.0) Ur Specific [place] 1.025 (1.005-1.035) Urine Protein Negative (<30 mg/dL) mg/dL Urine Glucose (UA) Negative (NEGATIVE) mg/dL Urine Ketones Negative (NEGATIVE) mg/dL Urine Blood Negative (NEGATIVE) Urine Nitrate Negative (NEGATIVE) Urine Bilirubin Negative (NEGATIVE) Urine Urobilinogen 0.2 (<1 E.U./dL) E.U./dL Ur Leukocyte Esterase Trace H (NEGATIVE) Eddie/uL Urine RBC TEST NOT PERFORMED Urine WBC 5 - 10 (0-6) /hpf Ur Epithelial Cells 3 - 4 (0-5) /hpf Salicylates (2.0-20.0) mg/dL Urine Opiates Screen Negative (NEGATIVE) Urine Methadone Screen Negative (NEGATIVE) Acetaminophen (10.0-20.0) ug/ml Ur Barbiturates Screen Negative (NEGATIVE) Ur Phencyclidine Scrn Negative (NEGATIVE) Ur Amphetamines Screen Negative (NEGATIVE) U Benzodiazepines Scrn Negative (NEGATIVE) U Oth Cocaine Metabols Negative (NEGATIVE) U Cannabinoids Screen Positive H (NEGATIVE) 05/28/18 05/28/18 05/28/18 Range/Units 15:20 15:20 15:20 WBC 17.3 H D (4.5-11.0) 10^3/uL RBC 5.02 (3.5-6.1) 10^6/uL Hgb 15.9 (14.0-18.0) g/dL Hct 43.8 (42.0-52.0) % MCV 87.3 (80.0-105.0) fl MCH 31.7 (25.0-35.0) pg MCHC 36.3 (31.0-37.0) g/dl RDW 11.9 (11.5-14.5) % Plt Count 272 (120.0-450.0) 10^3/uL MPV 9.9 (7.0-11.0) fl Gran % 74.4 H (50.0-68.0) % Lymph % (Auto) 12.8 L (22.0-35.0) % [place] % (Auto) 12.7 H (1.0-6.0) % Eos % (Auto) 0.0 L (1.5-5.0) % Baso % (Auto) 0.1 (0.0-3.0) % Gran # 12.86 H (1.4-6.5) Lymph # (Auto) 2.2 (1.2-3.4) [place] # (Auto) 2.2 H (0.1-0.6) Eos # (Auto) 0.0 (0.0-0.7) Baso # (Auto) 0.01 (0.0-2.0) K/mm3 Sodium 139 (132-148) mmol/L Potassium 4.0 (3.6-5.0) mmol/L Chloride 103 (98-107) mmol/L Carbon Dioxide 23 (21-33) mmol/L Anion Gap 17 (10-20) BUN 11 (7-21) mg/dL Creatinine 0.8 (0.8-1.5) mg/dl Est GFR ( Amer) > 60 Est GFR (Non-Af Amer) > 60 Random Glucose 113 H (70-110) mg/dL Calcium 9.9 (8.4-10.5) mg/dL Phosphorus (2.5-4.5) mg/dL Magnesium (1.7-2.2) mg/dL Total Bilirubin 0.6 (0.2-1.3) mg/dL AST 57 (17-59) U/L ALT 21 (7-56) U/L Alkaline Phosphatase 65 (38-126) U/L Total Creatine Kinase (35-230) U/L CK-MB (CK-2) (0.0-3.6) ng/mL CK-MB (CK-2) % Troponin I ng/mL Total Protein 8.4 H (5.8-8.3) g/dL Albumin 5.0 H (3.0-4.8) g/dL Globulin 3.4 gm/dL Albumin/Globulin Ratio 1.4 (1.1-1.8) Free T4 (0.78-2.19) ng/dL Urine Color (YELLOW) Urine Appearance (CLEAR) Urine pH (4.7-8.0) Ur Specific [place] (1.005-1.035) Urine Protein (<30 mg/dL) mg/dL Urine Glucose (UA) (NEGATIVE) mg/dL Urine Ketones (NEGATIVE) mg/dL Urine Blood (NEGATIVE) Urine Nitrate (NEGATIVE) Urine Bilirubin (NEGATIVE) Urine Urobilinogen (<1 E.U./dL) E.U./dL Ur Leukocyte Esterase (NEGATIVE) Eddie/uL Urine RBC Urine WBC (0-6) /hpf Ur Epithelial Cells (0-5) /hpf Salicylates < 1 L (2.0-20.0) mg/dL Urine Opiates Screen (NEGATIVE) Urine Methadone Screen (NEGATIVE) Acetaminophen < 10.0 L (10.0-20.0) ug/ml Ur Barbiturates Screen (NEGATIVE) Ur Phencyclidine Scrn (NEGATIVE) Ur Amphetamines Screen (NEGATIVE) U Benzodiazepines Scrn (NEGATIVE) U Oth Cocaine Metabols (NEGATIVE) U Cannabinoids Screen (NEGATIVE) Laboratory Results - last 24 hr 05/28/18 05/28/18 05/28/18 15:20 15:20 15:20 WBC 17.3 H D RBC 5.02 Hgb 15.9 Hct 43.8 MCV 87.3 MCH 31.7 MCHC 36.3 RDW 11.9 Plt Count 272 MPV 9.9 Gran % 74.4 H Lymph % (Auto) 12.8 L [place] % (Auto) 12.7 H Eos % (Auto) 0.0 L Baso % (Auto) 0.1 Gran # 12.86 H Lymph # (Auto) 2.2 [place] # (Auto) 2.2 H Eos # (Auto) 0.0 Baso # (Auto) 0.01 Sodium 139 Potassium 4.0 Chloride 103 Carbon Dioxide 23 Anion Gap 17 BUN 11 Creatinine 0.8 Est GFR ( Amer) > 60 Est GFR (Non-Af Amer) > 60 Random Glucose 113 H Calcium 9.9 Phosphorus Magnesium Total Bilirubin 0.6 AST 57 ALT 21 Alkaline Phosphatase 65 Total Creatine Kinase CK-MB (CK-2) CK-MB (CK-2) % Troponin I Total Protein 8.4 H Albumin 5.0 H Globulin 3.4 Albumin/Globulin Ratio 1.4 Free T4 Urine Color Urine Appearance Urine pH Ur Specific [place] Urine Protein Urine Glucose (UA) Urine Ketones Urine Blood Urine Nitrate Urine Bilirubin Urine Urobilinogen Ur Leukocyte Esterase Urine RBC Urine WBC Ur Epithelial Cells Salicylates < 1 L Urine Opiates Screen Urine Methadone Screen Acetaminophen < 10.0 L Ur Barbiturates Screen Ur Phencyclidine Scrn Ur Amphetamines Screen U Benzodiazepines Scrn U Oth Cocaine Metabols U Cannabinoids Screen 05/28/18 05/28/18 05/28/18 17:30 17:40 17:40 WBC RBC Hgb Hct MCV MCH MCHC RDW Plt Count MPV Gran % Lymph % (Auto) [place] % (Auto) Eos % (Auto) Baso % (Auto) Gran # Lymph # (Auto) [place] # (Auto) Eos # (Auto) Baso # (Auto) Sodium Potassium Chloride Carbon Dioxide Anion Gap BUN Creatinine Est GFR ( Amer) Est GFR (Non-Af Amer) Random Glucose Calcium Phosphorus Magnesium Total Bilirubin AST ALT Alkaline Phosphatase Total Creatine Kinase 1555 H CK-MB (CK-2) 3.7 H CK-MB (CK-2) % Cancelled Troponin I 0.02 Total Protein Albumin Globulin Albumin/Globulin Ratio Free T4 Urine Color Yellow Urine Appearance Clear Urine pH 6.0 Ur Specific [place] 1.025 Urine Protein Negative Urine Glucose (UA) Negative Urine Ketones Negative Urine Blood Negative Urine Nitrate Negative Urine Bilirubin Negative Urine Urobilinogen 0.2 Ur Leukocyte Esterase Trace H Urine RBC TEST NOT PERFORMED Urine WBC 5 - 10 Ur Epithelial Cells 3 - 4 Salicylates Urine Opiates Screen Negative Urine Methadone Screen Negative Acetaminophen Ur Barbiturates Screen Negative Ur Phencyclidine Scrn Negative Ur Amphetamines Screen Negative U Benzodiazepines Scrn Negative U Oth Cocaine Metabols Negative U Cannabinoids Screen Positive H 05/29/18 05/29/18 05/29/18 06:20 06:20 06:20 WBC 12.1 H D RBC 4.50 Hgb 14.0 Hct 39.5 L MCV 87.8 MCH 31.1 MCHC 35.4 RDW 12.0 Plt Count 221 MPV 9.1 Gran % 68.6 H Lymph % (Auto) 17.2 L [place] % (Auto) 13.9 H Eos % (Auto) 0.1 L Baso % (Auto) 0.2 Gran # 8.27 H Lymph # (Auto) 2.1 [place] # (Auto) 1.7 H Eos # (Auto) 0.0 Baso # (Auto) 0.02 Sodium 140 Potassium 4.2 Chloride 108 H Carbon Dioxide 21 Anion Gap 15 BUN 14 Creatinine 0.8 Est GFR ( Amer) > 60 Est GFR (Non-Af Amer) > 60 Random Glucose 96 Calcium 9.0 Phosphorus 5.2 H Magnesium 2.2 Total Bilirubin 1.1 AST 161 H D ALT 42 Alkaline Phosphatase 55 Total Creatine Kinase 48964 H CK-MB (CK-2) CK-MB (CK-2) % Troponin I Total Protein 7.0 Albumin 4.0 Globulin 3.0 Albumin/Globulin Ratio 1.3 Free T4 2.01 Urine Color Urine Appearance Urine pH Ur Specific [place] Urine Protein Urine Glucose (UA) Urine Ketones Urine Blood Urine Nitrate Urine Bilirubin Urine Urobilinogen Ur Leukocyte Esterase Urine RBC Urine WBC Ur Epithelial Cells Salicylates Urine Opiates Screen Urine Methadone Screen Acetaminophen Ur Barbiturates Screen Ur Phencyclidine Scrn Ur Amphetamines Screen U Benzodiazepines Scrn U Oth Cocaine Metabols U Cannabinoids Screen EKG/Cardiology Studies: Cardiology / EKG Studies 05/28/18 15:06 EKG [ELECTROCARDIOGRAM] Stat Comment: Reason For Exam: RESTLESS Review of Systems - Review of Systems Review of Systems: per [facility] Critical Care Progress Note - Nutrition Nutrition: Nutrition Category Date Time Status Heart Healthy Diet [DIET] Diets 05/29/18 Breakfast Active Assessment/Plan - Assessment and Plan (Free Text) Assessment: 17 y/o M with PMHX of ADHD, polysubstance abuse and dependence, h/o inpatient rehab and detoxes, anxiety, psychosis admaitted initially to psychiatry unit for delusions/hallucinations. Admitted to ICU as patient was increasingly agitated and requires precedex drip for sedation. Plan: Neuro/Psych: Pt currently on precedex @ 0.6mcg. Drowsy, slurred speech Decrease precedex drip Remove LE restraints Psych meds per psych recs 1:1 sitter Ativan prn Cardiovascular hypertension/tachycardia resolved Maintain MAP>65 Pulmonary Maintain SpO2 Saturating well on NC GI: NBS Soft/nontender /Renal CK increased to 10,21, CKMB Hyperchloremic, stop NS Start banana bag bolus Maintain euvolemia urine tox: + cannabinoids ID: Leukocytosis downtrending likely reactive f/u procalcitonin antibiotics per ID recs DVT/GI PPx: Hep/protonix Case seen, examined and discussed with attending physician, Dr. Chao <James Chao - Last Filed: 05/29/18 10:34> CCU Objective - Vital Signs / Intake & Output Intake and Output (Last 8hrs): Intake & Output 05/28/18 05/29/18 05/29/18 22:59 06:59 14:59 Intake Total 100 100.0 Balance 100 100.0 Weight 150 lb 155 lb Intake: IV 100 100.0 - Medications Active Medications: Active Medications Generic Name Dose Route Start Last Admin Trade Name Freq PRN Reason Stop Dose Admin Heparin Sodium (Porcine) 5,000 units 05/29/18 06:00 05/29/18 06:40 Heparin SC 5,000 units Q8 ENRIQUE Administration Protocol Dexmedetomidine HCl 400 mcg in 100 mls @ 3.402 mls/hr 05/28/18 23:26 05/29/18 10:14 Precedex 400mcg/100ml IV 0.3 mcg/kg/hr .Q24H PRN 5.103 mls/hr Agitation Administration Protocol 0.2 MCG/KG/HR Lorazepam 2 mg 05/28/18 20:36 05/29/18 06:00 Ativan IVP 2 mg Q4H PRN Administration Agitation Protocol Pantoprazole Sodium 40 mg 05/29/18 10:00 05/29/18 09:26 Protonix Inj IVP 40 mg DAILY ENRIQUE Administration Propranolol HCl 10 mg 05/29/18 10:00 Inderal PO TID ENRIQUE - Patient Studies Lab Studies: Lab Studies 05/29/18 05/29/18 05/29/18 Range/Units 06:20 06:20 06:20 WBC 12.1 H D (4.5-11.0) 10^3/uL RBC 4.50 (3.5-6.1) 10^6/uL Hgb 14.0 (14.0-18.0) g/dL Hct 39.5 L (42.0-52.0) % MCV 87.8 (80.0-105.0) fl MCH 31.1 (25.0-35.0) pg MCHC 35.4 (31.0-37.0) g/dl RDW 12.0 (11.5-14.5) % Plt Count 221 (120.0-450.0) 10^3/uL MPV 9.1 (7.0-11.0) fl Gran % 68.6 H (50.0-68.0) % Lymph % (Auto) 17.2 L (22.0-35.0) % [place] % (Auto) 13.9 H (1.0-6.0) % Eos % (Auto) 0.1 L (1.5-5.0) % Baso % (Auto) 0.2 (0.0-3.0) % Gran # 8.27 H (1.4-6.5) Lymph # (Auto) 2.1 (1.2-3.4) [place] # (Auto) 1.7 H (0.1-0.6) Eos # (Auto) 0.0 (0.0-0.7) Baso # (Auto) 0.02 (0.0-2.0) K/mm3 Sodium 140 (132-148) mmol/L Potassium 4.2 (3.6-5.0) mmol/L Chloride 108 H (98-107) mmol/L Carbon Dioxide 21 (21-33) mmol/L Anion Gap 15 (10-20) BUN 14 (7-21) mg/dL Creatinine 0.8 (0.8-1.5) mg/dl Est GFR ( Amer) > 60 Est GFR (Non-Af Amer) > 60 Random Glucose 96 (70-110) mg/dL Calcium 9.0 (8.4-10.5) mg/dL Phosphorus 5.2 H (2.5-4.5) mg/dL Magnesium 2.2 (1.7-2.2) mg/dL Total Bilirubin 1.1 (0.2-1.3) mg/dL AST 161 H D (17-59) U/L ALT 42 (7-56) U/L Alkaline Phosphatase 55 (38-126) U/L Total Creatine Kinase 00316 H (35-230) U/L CK-MB (CK-2) 12.1 H (0.0-3.6) ng/mL CK-MB (CK-2) % 0.1 L Troponin I ng/mL Total Protein 7.0 (5.8-8.3) g/dL Albumin 4.0 (3.0-4.8) g/dL Globulin 3.0 gm/dL Albumin/Globulin Ratio 1.3 (1.1-1.8) Free T4 2.01 (0.78-2.19) ng/dL Urine Color (YELLOW) Urine Appearance (CLEAR) Urine pH (4.7-8.0) Ur Specific [place] (1.005-1.035) Urine Protein (<30 mg/dL) mg/dL Urine Glucose (UA) (NEGATIVE) mg/dL Urine Ketones (NEGATIVE) mg/dL Urine Blood (NEGATIVE) Urine Nitrate (NEGATIVE) Urine Bilirubin (NEGATIVE) Urine Urobilinogen (<1 E.U./dL) E.U./dL Ur Leukocyte Esterase (NEGATIVE) Eddie/uL Urine RBC Urine WBC (0-6) /hpf Ur Epithelial Cells (0-5) /hpf Salicylates (2.0-20.0) mg/dL Urine Opiates Screen (NEGATIVE) Urine Methadone Screen (NEGATIVE) Acetaminophen (10.0-20.0) ug/ml Ur Barbiturates Screen (NEGATIVE) Ur Phencyclidine Scrn (NEGATIVE) Ur Amphetamines Screen (NEGATIVE) U Benzodiazepines Scrn (NEGATIVE) U Oth Cocaine Metabols (NEGATIVE) U Cannabinoids Screen (NEGATIVE) 05/28/18 05/28/18 05/28/18 Range/Units 17:40 17:40 17:30 WBC (4.5-11.0) 10^3/uL RBC (3.5-6.1) 10^6/uL Hgb (14.0-18.0) g/dL Hct (42.0-52.0) % MCV (80.0-105.0) fl MCH (25.0-35.0) pg MCHC (31.0-37.0) g/dl RDW (11.5-14.5) % Plt Count (120.0-450.0) 10^3/uL MPV (7.0-11.0) fl Gran % (50.0-68.0) % Lymph % (Auto) (22.0-35.0) % [place] % (Auto) (1.0-6.0) % Eos % (Auto) (1.5-5.0) % Baso % (Auto) (0.0-3.0) % Gran # (1.4-6.5) Lymph # (Auto) (1.2-3.4) [place] # (Auto) (0.1-0.6) Eos # (Auto) (0.0-0.7) Baso # (Auto) (0.0-2.0) K/mm3 Sodium (132-148) mmol/L Potassium (3.6-5.0) mmol/L Chloride (98-107) mmol/L Carbon Dioxide (21-33) mmol/L Anion Gap (10-20) BUN (7-21) mg/dL Creatinine (0.8-1.5) mg/dl Est GFR ( Amer) Est GFR (Non-Af Amer) Random Glucose (70-110) mg/dL Calcium (8.4-10.5) mg/dL Phosphorus (2.5-4.5) mg/dL Magnesium (1.7-2.2) mg/dL Total Bilirubin (0.2-1.3) mg/dL AST (17-59) U/L ALT (7-56) U/L Alkaline Phosphatase (38-126) U/L Total Creatine Kinase 1555 H (35-230) U/L CK-MB (CK-2) 3.7 H (0.0-3.6) ng/mL CK-MB (CK-2) % Cancelled Troponin I 0.02 ng/mL Total Protein (5.8-8.3) g/dL Albumin (3.0-4.8) g/dL Globulin gm/dL Albumin/Globulin Ratio (1.1-1.8) Free T4 (0.78-2.19) ng/dL Urine Color Yellow (YELLOW) Urine Appearance Clear (CLEAR) Urine pH 6.0 (4.7-8.0) Ur Specific [place] 1.025 (1.005-1.035) Urine Protein Negative (<30 mg/dL) mg/dL Urine Glucose (UA) Negative (NEGATIVE) mg/dL Urine Ketones Negative (NEGATIVE) mg/dL Urine Blood Negative (NEGATIVE) Urine Nitrate Negative (NEGATIVE) Urine Bilirubin Negative (NEGATIVE) Urine Urobilinogen 0.2 (<1 E.U./dL) E.U./dL Ur Leukocyte Esterase Trace H (NEGATIVE) Eddie/uL Urine RBC TEST NOT PERFORMED Urine WBC 5 - 10 (0-6) /hpf Ur Epithelial Cells 3 - 4 (0-5) /hpf Salicylates (2.0-20.0) mg/dL Urine Opiates Screen Negative (NEGATIVE) Urine Methadone Screen Negative (NEGATIVE) Acetaminophen (10.0-20.0) ug/ml Ur Barbiturates Screen Negative (NEGATIVE) Ur Phencyclidine Scrn Negative (NEGATIVE) Ur Amphetamines Screen Negative (NEGATIVE) U Benzodiazepines Scrn Negative (NEGATIVE) U Oth Cocaine Metabols Negative (NEGATIVE) U Cannabinoids Screen Positive H (NEGATIVE) 05/28/18 05/28/18 05/28/18 Range/Units 15:20 15:20 15:20 WBC 17.3 H D (4.5-11.0) 10^3/uL RBC 5.02 (3.5-6.1) 10^6/uL Hgb 15.9 (14.0-18.0) g/dL Hct 43.8 (42.0-52.0) % MCV 87.3 (80.0-105.0) fl MCH 31.7 (25.0-35.0) pg MCHC 36.3 (31.0-37.0) g/dl RDW 11.9 (11.5-14.5) % Plt Count 272 (120.0-450.0) 10^3/uL MPV 9.9 (7.0-11.0) fl Gran % 74.4 H (50.0-68.0) % Lymph % (Auto) 12.8 L (22.0-35.0) % [place] % (Auto) 12.7 H (1.0-6.0) % Eos % (Auto) 0.0 L (1.5-5.0) % Baso % (Auto) 0.1 (0.0-3.0) % Gran # 12.86 H (1.4-6.5) Lymph # (Auto) 2.2 (1.2-3.4) [place] # (Auto) 2.2 H (0.1-0.6) Eos # (Auto) 0.0 (0.0-0.7) Baso # (Auto) 0.01 (0.0-2.0) K/mm3 Sodium 139 (132-148) mmol/L Potassium 4.0 (3.6-5.0) mmol/L Chloride 103 (98-107) mmol/L Carbon Dioxide 23 (21-33) mmol/L Anion Gap 17 (10-20) BUN 11 (7-21) mg/dL Creatinine 0.8 (0.8-1.5) mg/dl Est GFR ( Amer) > 60 Est GFR (Non-Af Amer) > 60 Random Glucose 113 H (70-110) mg/dL Calcium 9.9 (8.4-10.5) mg/dL Phosphorus (2.5-4.5) mg/dL Magnesium (1.7-2.2) mg/dL Total Bilirubin 0.6 (0.2-1.3) mg/dL AST 57 (17-59) U/L ALT 21 (7-56) U/L Alkaline Phosphatase 65 (38-126) U/L Total Creatine Kinase (35-230) U/L CK-MB (CK-2) (0.0-3.6) ng/mL CK-MB (CK-2) % Troponin I ng/mL Total Protein 8.4 H (5.8-8.3) g/dL Albumin 5.0 H (3.0-4.8) g/dL Globulin 3.4 gm/dL Albumin/Globulin Ratio 1.4 (1.1-1.8) Free T4 (0.78-2.19) ng/dL Urine Color (YELLOW) Urine Appearance (CLEAR) Urine pH (4.7-8.0) Ur Specific [place] (1.005-1.035) Urine Protein (<30 mg/dL) mg/dL Urine Glucose (UA) (NEGATIVE) mg/dL Urine Ketones (NEGATIVE) mg/dL Urine Blood (NEGATIVE) Urine Nitrate (NEGATIVE) Urine Bilirubin (NEGATIVE) Urine Urobilinogen (<1 E.U./dL) E.U./dL Ur Leukocyte Esterase (NEGATIVE) Eddie/uL Urine RBC Urine WBC (0-6) /hpf Ur Epithelial Cells (0-5) /hpf Salicylates < 1 L (2.0-20.0) mg/dL Urine Opiates Screen (NEGATIVE) Urine Methadone Screen (NEGATIVE) Acetaminophen < 10.0 L (10.0-20.0) ug/ml Ur Barbiturates Screen (NEGATIVE) Ur Phencyclidine Scrn (NEGATIVE) Ur Amphetamines Screen (NEGATIVE) U Benzodiazepines Scrn (NEGATIVE) U Oth Cocaine Metabols (NEGATIVE) U Cannabinoids Screen (NEGATIVE) Laboratory Results - last 24 hr 05/28/18 05/28/18 05/28/18 15:20 15:20 15:20 WBC 17.3 H D RBC 5.02 Hgb 15.9 Hct 43.8 MCV 87.3 MCH 31.7 MCHC 36.3 RDW 11.9 Plt Count 272 MPV 9.9 Gran % 74.4 H Lymph % (Auto) 12.8 L [place] % (Auto) 12.7 H Eos % (Auto) 0.0 L Baso % (Auto) 0.1 Gran # 12.86 H Lymph # (Auto) 2.2 [place] # (Auto) 2.2 H Eos # (Auto) 0.0 Baso # (Auto) 0.01 Sodium 139 Potassium 4.0 Chloride 103 Carbon Dioxide 23 Anion Gap 17 BUN 11 Creatinine 0.8 Est GFR ( Amer) > 60 Est GFR (Non-Af Amer) > 60 Random Glucose 113 H Calcium 9.9 Phosphorus Magnesium Total Bilirubin 0.6 AST 57 ALT 21 Alkaline Phosphatase 65 Total Creatine Kinase CK-MB (CK-2) CK-MB (CK-2) % Troponin I Total Protein 8.4 H Albumin 5.0 H Globulin 3.4 Albumin/Globulin Ratio 1.4 Free T4 Urine Color Urine Appearance Urine pH Ur Specific [place] Urine Protein Urine Glucose (UA) Urine Ketones Urine Blood Urine Nitrate Urine Bilirubin Urine Urobilinogen Ur Leukocyte Esterase Urine RBC Urine WBC Ur Epithelial Cells Salicylates < 1 L Urine Opiates Screen Urine Methadone Screen Acetaminophen < 10.0 L Ur Barbiturates Screen Ur Phencyclidine Scrn Ur Amphetamines Screen U Benzodiazepines Scrn U Oth Cocaine Metabols U Cannabinoids Screen 11/05/28/18 05/28/18 17:30 17:40 17:40 WBC RBC Hgb Hct MCV MCH MCHC RDW Plt Count MPV Gran % Lymph % (Auto) [place] % (Auto) Eos % (Auto) Baso % (Auto) Gran # Lymph # (Auto) [place] # (Auto) Eos # (Auto) Baso # (Auto) Sodium Potassium Chloride Carbon Dioxide Anion Gap BUN Creatinine Est GFR ( Amer) Est GFR (Non-Af Amer) Random Glucose Calcium Phosphorus Magnesium Total Bilirubin AST ALT Alkaline Phosphatase Total Creatine Kinase 1555 H CK-MB (CK-2) 3.7 H CK-MB (CK-2) % Cancelled Troponin I 0.02 Total Protein Albumin Globulin Albumin/Globulin Ratio Free T4 Urine Color Yellow Urine Appearance Clear Urine pH 6.0 Ur Specific [place] 1.025 Urine Protein Negative Urine Glucose (UA) Negative Urine Ketones Negative Urine Blood Negative Urine Nitrate Negative Urine Bilirubin Negative Urine Urobilinogen 0.2 Ur Leukocyte Esterase Trace H Urine RBC TEST NOT PERFORMED Urine WBC 5 - 10 Ur Epithelial Cells 3 - 4 Salicylates Urine Opiates Screen Negative Urine Methadone Screen Negative Acetaminophen Ur Barbiturates Screen Negative Ur Phencyclidine Scrn Negative Ur Amphetamines Screen Negative U Benzodiazepines Scrn Negative U Oth Cocaine Metabols Negative U Cannabinoids Screen Positive H 05/29/18 05/29/18 05/29/18 06:20 06:20 06:20 WBC 12.1 H D RBC 4.50 Hgb 14.0 Hct 39.5 L MCV 87.8 MCH 31.1 MCHC 35.4 RDW 12.0 Plt Count 221 MPV 9.1 Gran % 68.6 H Lymph % (Auto) 17.2 L [place] % (Auto) 13.9 H Eos % (Auto) 0.1 L Baso % (Auto) 0.2 Gran # 8.27 H Lymph # (Auto) 2.1 [place] # (Auto) 1.7 H Eos # (Auto) 0.0 Baso # (Auto) 0.02 Sodium 140 Potassium 4.2 Chloride 108 H Carbon Dioxide 21 Anion Gap 15 BUN 14 Creatinine 0.8 Est GFR ( Amer) > 60 Est GFR (Non-Af Amer) > 60 Random Glucose 96 Calcium 9.0 Phosphorus 5.2 H Magnesium 2.2 Total Bilirubin 1.1 AST 161 H D ALT 42 Alkaline Phosphatase 55 Total Creatine Kinase 25641 H CK-MB (CK-2) 12.1 H CK-MB (CK-2) % 0.1 L Troponin I Total Protein 7.0 Albumin 4.0 Globulin 3.0 Albumin/Globulin Ratio 1.3 Free T4 2.01 Urine Color Urine Appearance Urine pH Ur Specific [place] Urine Protein Urine Glucose (UA) Urine Ketones Urine Blood Urine Nitrate Urine Bilirubin Urine Urobilinogen Ur Leukocyte Esterase Urine RBC Urine WBC Ur Epithelial Cells Salicylates Urine Opiates Screen Urine Methadone Screen Acetaminophen Ur Barbiturates Screen Ur Phencyclidine Scrn Ur Amphetamines Screen U Benzodiazepines Scrn U Oth Cocaine Metabols U Cannabinoids Screen EKG/Cardiology Studies: Cardiology / EKG Studies 05/28/18 15:06 EKG [ELECTROCARDIOGRAM] Stat Comment: Reason For Exam: RESTLESS Critical Care Progress Note - Nutrition Nutrition: Nutrition Category Date Time Status Heart Healthy Diet [DIET] Diets 05/29/18 Breakfast Active Attending/Attestation - Attestation I have personally seen and examined this patient.: Yes I have fully participated in the care of the patient.: Yes I have reviewed all pertinent clinical information: Yes Notes (Text): 05/29/18 10:23 The patient was seen and examined at the bedside. Patient care was discussed with resident Medical records, lab studies were reviewed and management issues were discussed and formulated. Last 24H events reviewed. Agree with above treatment plans as outlined in 's note with addition of the following: Acute Psychosis \ Rhabdomyolisis -hemodynamic monitoring to maintain MAP>65 -monitor to maintain Spo2>90 Pao2>60; currently comfortable on room air -pt can protect his airway at this time -f\u Bun\Cr and U\o; continue IVF -add thiamine , folic acid and MVI -f\u CPK -psych team f\u; pt was actively psychotic overnight and violent to staff and actively hallucinating -pt did not respond to multiple doses of ativan and psych meds and was transfer red to ICU -pt was started on Precedex drip -possible drug abuse suspected as pt has a h\o drug use -NPO diet and aspiration precautions -we will deescalate precedex and will remove restraints this morning as pt's condition improves -DVT \ PUD prophylaxis CCM f\u time 25mins
[2018-05-29] MEDS ORDERED: Multivitamin (MVI) 10 ML, Thiamine 100 MG, Folic Acid 1 MG in Sodium Chloride 0.9% 1,00... IV ONE (09:06)
[2018-05-29] MEDS ORDERED: Propranolol 1 mg/mL Inj IV STA (09:59)
--- NOTE | 2018-05-29 10:03 | RAD ---
Date of service: 05/29/2018 HISTORY: sob COMPARISON: 05/27/2018 FINDINGS: LUNGS: No active pulmonary disease. PLEURA: No significant pleural effusion identified, no pneumothorax apparent. CARDIOVASCULAR: No aortic atherosclerotic calcification present. Normal cardiac size. No pulmonary vascular congestion. OSSEOUS STRUCTURES: No significant abnormalities. VISUALIZED UPPER ABDOMEN: Normal. OTHER FINDINGS: None. IMPRESSION: No active disease.
--- NOTE | 2018-05-29 14:05 | PN ---
DATE: 05/29/2018 SUBJECTIVE: The patient is in the Intensive Care Unit. He was admitted via the emergency room yesterday. The patient was transferred from the psych floor to the ER because he was very agitated, uncontrollable movements of his arm and legs. He had to be restrained and the patient has history of schizophrenia. The patient had to be transferred to ICU for aggressive control of his agitation. The patient was treated with Ativan and the patient was having adverse reaction to Haldol. The patient this morning is awake, not as restless since yesterday, but he is still sort of not responding to questions. PHYSICAL EXAMINATION: VITAL SIGNS: The patient's pulse is 134, the patient's temperature is 97.7, his O2 sat is 100% on room air. HEENT: The patient's head seems to be normocephalic. He has tattoos all over his body in the skin. NECK: The patient's thyroid is not enlarged. JVP is flat. HEART: Normal sinus rhythm. S1, S2 present. LUNGS: Clear clinically. ABDOMEN: Soft. Liver, spleen not palpable. FUNERAL ARRANGEMENT DIRECTOR: No focal deficits are noted. EXTREMITIES: He moves all 4 limbs, but very aggressive. He is still under sedation. LABORATORY DATA: His lab work shows elevated CPK, CPK was 10,250 consistent with vigorous muscular movements. The patient's AST is 161, BUN is 14, creatinine is 0.8. MEDICATIONS: His medications consist of Ativan 2 mg IV every 4 hours, heparin prophylaxis. The patient is on Precedex 400 mcg per 100 mL, IV drip to control the agitation, pantoprazole 40 mg daily. The patient is on IV fluids sodium chloride 175 mL per hour. ASSESSMENT AND PLAN: The patient will be kept under observation. We will continue current management, place consultation for Cardiology, Neurology and Behavioral Care Unit doctor in charge, Dr. Ray. The patient's prognosis is guarded at this time and he is improved somewhat from yesterday's clinical status. We will follow up. Hanh Zhu MD [facility]
--- NOTE | 2018-05-29 15:37 | CT ---
Date of service: 05/29/2018 PROCEDURE: CT HEAD WITHOUT CONTRAST. HISTORY: ams COMPARISON: None available. TECHNIQUE: Axial computed tomography images were obtained through the head/brain without intravenous contrast. Radiation dose: Total exam DLP = 1725.57 mGy-cm. This CT exam was performed using one or more of the following dose reduction techniques: Automated exposure control, adjustment of the mA and/or kV according to patient size, and/or use of iterative reconstruction technique. FINDINGS: HEMORRHAGE: No intracranial hemorrhage. BRAIN: No mass effect or edema. No atrophy or chronic microvascular ischemic changes. VENTRICLES: Unremarkable. No hydrocephalus. CALVARIUM: Unremarkable. PARANASAL SINUSES: Unremarkable as visualized. No significant inflammatory changes. MASTOID AIR CELLS: Unremarkable as visualized. No inflammatory changes. OTHER FINDINGS: None. IMPRESSION: No acute intracranial findings
--- NOTE | 2018-05-29 18:03 | CARD ---
APPROVED REPORT Date of service: 05/29/2018 EXAM: Two-dimensional and M-mode echocardiogram with Doppler and color Doppler. INDICATION Infection:Rule out subacute bacterial endocarditis TACHYCARDIA 2D DIMENSIONS Left Atrium (2D)3.7 (1.6-4.0cm)IVSd1.1 (0.7-1.1cm) LVDd4.5 (3.9-5.9cm)PWd1.2 (0.7-1.1cm) LVDs3.2 (2.5-4.0cm)FS (%) 29.6 % LVEF (%)56.8 (>50%) M-Mode DIMENSIONS Aortic Root3.30 (2.2-3.7cm)Aortic Cusp Exc.1.90 (1.5-2.0cm) Mitral Valve MV E Lwswshmw21.1cm/sMV A Szfcorch13.3cm/sE/A ratio1.3 TDI E/Lateral E'0.0E/Medial E'0.0 Pulmonary Valve PV Peak Pwstygzu55.6cm/sPV Peak Grad.2mmHg Tricuspid Valve TR Peak Zswppttd805fx/sRAP [id number] Peak Gr.22mmHg [id number] LEFT VENTRICLE The left ventricle is normal size. There is normal left ventricular wall thickness. The left ventricular function is normal.EF-55-60% There is normal LV segmental wall motion. The left ventricular diastolic function is normal. No left ventricle thrombus noted on this study. There is no ventricular septal defect visualized. There is no left ventricular aneurysm. There is no mass noted in the left ventricle. RIGHT VENTRICLE The right ventricle is normal size. There is normal right ventricular wall thickness. The right ventricular systolic function is normal. ATRIA The left atrium size is normal. The right atrium size is normal. The interatrial septum is intact with no evidence for an atrial septal defect. AORTIC VALVE The aortic valve is thickened but opens well. No aortic regurgitation is present. There is no aortic valvular stenosis. There is no aortic valvular vegetation. MITRAL VALVE The mitral valve is thickened but opens well. Mitral regurgitation is trace. There is no mitral valve stenosis. There is no evidence of mitral valve prolapse. TRICUSPID VALVE The tricuspid valve leaflets are thickened , but open well. There is mild tricuspid regurgitation.RVSP-32 mmof Hg. There is no tricuspid valve stenosis. There is no tricuspid valve prolapse or vegetation. PULMONIC VALVE The pulmonary valve is normal in structure. There is no pulmonic valvular regurgitation. There is no pulmonic valvular stenosis. GREAT VESSELS The aortic root is normal in size. The ascending aorta is normal in size. The pulmonary artery is normal. The IVC is normal in size and collapses >50% with inspiration. PERICARDIAL EFFUSION There is no pleural effusion. There is no pericardial effusion. <Conclusion> Normal chamber Size. EF-55-60% Mitral regurgitation is trace. There is mild tricuspid regurgitation.RVSP-32 mmof Hg. The IVC is normal in size and collapses >50% with inspiration. There is no pericardial effusion. No Vegetation or Thrombus noted.
--- NOTE | 2018-05-29 20:00 | CON ---
DATE: 05/29/2018 CONSULT SERVICE: Cardiology. REASON FOR CONSULTATION: Sinus tachycardia. BRIEF CLINICAL HISTORY: This is a 17-year-old male initially admitted to the psychiatric floor with hallucination, possibly some substance abuse. Patient now moved to the ICU with rhabdomyolysis and persistent tachycardia. Cardiology consult was called because of the persistent tachycardia. Patient denies any chest pain, shortness of breath, any palpitation, heart rate in the 130 to 140. Toxicology screen was positive for marijuana. Patient is still disoriented off and on,and started hallucinating while questioning during the interview and still disoriented on 4-point ladder restraint, though denies any chest pain, denies any shortness of breath, denies any palpitation on waking up, but in between, patient fell asleep and start hallucinating. PAST MEDICAL HISTORY: Nothing significant. SOCIAL HISTORY: Claims that he smokes 1 to 2 cigarettes per day and sometime claims that he uses marijuana. Denies any history of alcohol abuse. FAMILY HISTORY: Nothing significant. CURRENT MEDICATIONS: As per patient, none at home. Currently, patient in ICU, taking Ativan multivitamin, IV fluid, and dexamethasone. PHYSICAL EXAMINATION: VITAL SIGNS: As follows; height of the patient 5 feet 9 inches, weight of the patient 155 pounds, body mass index 23 kg/m2. Rest of the vitals; temperature afebrile, heart rate 134, and blood pressure 130/80. HEENT: PERRLA. Extraocular muscles intact. NECK: Supple. No carotid bruit or thyromegaly. CHEST: Clear to auscultation. HEART: S1 and S2 regular. ABDOMEN: Soft. EXTREMITIES: Clubbing and cyanosis negative. LABORATORY DATA: EKG shows sinus tachycardia rate of 130. Blood workup as follows; WBC 12.1, hemoglobin 14, hematocrit 39.5, and platelet count 221,000. Chemistry shows sodium 140, potassium 4.2, chloride 108, carbon dioxide 21, anion gap of 15, BUN 14, and creatinine 0.8. Toxicology screen is positive for cannabis indica. IMPRESSION AND PLAN: A 17-year-old male admitted with acute psychosis initially admitted to psychiatric floor transfer because of persistent tachycardia. Denies any chest pain, shortness of breath, or any palpitation. WBC elevated, rule out sepsis, rule out IV drug abuse, rule out endocarditis. We will get echo to assess left ventricular function, we will get the sedimentation rate level, also we will start low dose of beta-traci, TSH, lipid profile. Further recommendation depending on hospital course. We will give IV 1 mg propranolol followed by 10 mg p.o. t.i.d., we will get echo and sedimentation rate as mentioned. We will follow with you. Thank you Dr. Zhu for providing us the opportunity in taking care of the patient, Jai Hess. Chari Jha MD [facility]
--- NOTE | 2018-05-29 20:12 | CON ---
DATE: 05/29/2018 HISTORY OF PRESENT ILLNESS: The patient is a 17-year-old male with long history of polysubstance abuse and dependence. The patient was admitted on the psych unit for psychosis. The patient became so agitated, the patient had multiple p.r.n. medications, but the patient's pulse was increasing. Medical consult was called. The patient was transferred to the emergency room, then on the medical floor, but the patient was not doing well and was admitted into ICU for Precedex drip. The patient was seen and evaluated today. The patient presented to be psychotic, but at the same time, the patient presented to be calmer. The patient did not know where he was and had no recollection of yesterday's episode. The patient is still paranoid, disorganized, and psychotic. Majority of the statements were not related to the questions being asked. VITAL SIGNS: The patient's vital signs seems to be improving. Pulse is slowing down, 86 today, and blood pressure 154/71, respirations 14. MEDICATIONS: Medications reviewed. The patient is on heparin, Ativan, Protonix, and Inderal. LABORATORY DATA: Labs reviewed. The patient had leukocytosis 12.1, but it is better to compare with yesterday. Chemistry reviewed. Creatine kinase was elevated, today, it is 10,215. Urinalysis reviewed. Toxicology reviewed. Most likely, the patient's presentation is related to synthetic drug use. CT of the head was done, which was negative. MENTAL STATUS EXAMINATION: The patient presented to be fdc sleep, fdc alert, and no eye contact. The patient is talking to this travel writer with eyes closed. Mood described as "what do you think?." Thought process disorganized. Thought content, the patient is responding to internal stimuli, disorganized, and psychotic. Insight and judgment seems to be severely impaired at present moment. Impulses are not predictable. IMPRESSION: Substance-induced psychosis and delirium, polysubstance abuse and dependence. The patient most likely uses synthetic drugs. PLAN: At the present moment, the patient needs to be stabilized. Most likely, the patient requires further evaluation and stabilization into the psychiatric inpatient unit who will monitor the patient closely. Discussed with Dr. Keith today. Thank you so much for letting me participate in care of your patient. Flor Leger MD
--- NOTE | 2018-05-30 00:08 | CON ---
DATE: 05/29/2018 HISTORY OF PRESENT ILLNESS: This is a 17-year-old white male with a past medical history of ADHD, conduct disorder, polysubstance abuse and was admitted in psych floor with agitation. The patient was transferred to ICU for agitation. Now, the patient is not agitated, follows simple commands. PAST MEDICAL HISTORY: ADHD, conduct disorder and polysubstance abuse. ALLERGIES: HALDOL. SOCIAL HISTORY: Polysubstance abuse. PHYSICAL EXAMINATION HEENT: Normocephalic and atraumatic. NECK: Supple. NEUROLOGIC: Awake. Oriented to self. Cranial nerves II through XII were tested. Not oriented to time. Appears confused. Spontaneous movement of all the extremities noted. Deep tendon reflexes 1+. Plantars are downgoing. Sensory appears intact. Cerebellar, gait deferred. LABORATORY DATA: WBC 12.1, hemoglobin 14, hematocrit 39.5, platelets 221. Sodium 140, potassium 4.2, chloride 108, CO2 of 21, glucose 96, BUN 14, creatinine 0.8. ASSESSMENT AND PLAN: The patient was seen for altered mental status, possibly toxic metabolic encephalopathy and rhabdomyolysis, psychosis, history of polysubstance abuse. Workup in progress. Continue present management. We will follow up. Onur June MD
[2018-05-30] MEDS: Sodium Chloride 0.9% 1,000 ML IV SCH ×4 (05:24→18:45)
[2018-05-30 07:00] LABS: BASO # 0.02 K/mm3 (0.0-2.0); BASO % 0.2 % (0.0-3.0); EOS # 0.1 (0.0-0.7); EOS % 0.7 % (1.5-5.0); GRAN # 6.14 (1.4-6.5); GRAN % 66.6 % (50.0-68.0); HEMOGLOBIN 12.9 g/dL (14.0-18.0); LYMPH # 1.9 (1.2-3.4); LYMPH % 20.4 % (22.0-35.0); MEAN CORPUSCULAR HEMOGLOBIN 30.9 pg (25.0-35.0); MEAN CORPUSCULAR HGB CONC 34.8 g/dl (31.0-37.0); MEAN PLATELET VOLUME 9.5 fl (7.0-11.0); MONO # 1.1 (0.1-0.6); MONO % 12.1 % (1.0-6.0); RBC 4.17 10^6/uL (3.5-6.1); RED CELL DISTRIBUTION WIDTH 12.1 % (11.5-14.5); WHITE BLOOD COUNT 9.2 10^3/uL (4.5-11.0)
[2018-05-30 07:27] LABS: TROPONIN I < 0.01 ng/mL
[2018-05-30 07:28] LABS: ALB/GLOB RATIO 1.3 (1.1-1.8); ALBUMIN 3.7 g/dL (3.0-4.8); ALT/SGPT 68 U/L (7-56); AST/SGOT 249 U/L (17-59); BLOOD UREA NITROGEN 8 mg/dL (7-21); CALCIUM 8.6 mg/dL (8.4-10.5); GFR NON-AFRICAN AMERICAN > 60; HDL CHOLESTEROL 34 mg/dL (29-60); LDL CHOLESTEROL 72 mg/dL (0-129)
--- NOTE | 2018-05-30 08:28 | CP.PCM.PN ---
Subjective - Date & Time of Evaluation Date of Evaluation: 05/30/18 Time of Evaluation: 07:45 - Subjective Subjective: Patient seen this morning. He is awake and lying in bed 6 in the intensive care unit. He is not agitated at this time. He says that he takes Xanax at home and that he took marijuana which was shipped to him from [place]. Objective - Vital Signs/Intake and Output Vital Signs (last 24 hours): Temp Pulse Resp BP Pulse Ox 98.8 F 73 22 126/77 97 05/29/18 16:02 05/30/18 06:00 05/29/18 20:30 05/29/18 20:30 05/29/18 13:00 Intake and Output: 05/30/18 05/30/18 06:59 18:59 Intake Total 1840 Output Total 2200 Balance -360 - Medications Medications: Current Medications Heparin Sodium (Porcine) (Heparin) 5,000 units SC Q8 ENRIQUE; Protocol Last Admin: 05/30/18 05:23 Dose: 5,000 units Sodium Chloride (Sodium Chloride 0.9%) 1,000 mls @ 100 mls/hr IV .Q10H ENRIQUE Last Admin: 05/30/18 05:24 Dose: 100 mls/hr Lorazepam (Ativan) 1 mg IVP Q4H PRN; Protocol PRN Reason: Agitation Last Admin: 05/30/18 01:50 Dose: 1 mg Pantoprazole Sodium (Protonix Inj) 40 mg IVP DAILY [facility] Last Admin: 05/29/18 09:26 Dose: 40 mg Propranolol HCl (Inderal) 10 mg PO TID ENRIQUE Last Admin: 05/29/18 17:27 Dose: 10 mg - Labs Labs: 05/30/18 05:30 05/30/18 05:30 APTT 24.4 Seconds (25.1-36.5) L 05/30/18 05:30 - Constitutional Appears: No Acute Distress - Head Exam Head Exam: ATRAUMATIC, NORMOCEPHALIC - Respiratory Exam Respiratory Exam: Clear to Ausculation Bilateral, NORMAL BREATHING PATTERN - Cardiovascular Exam Cardiovascular Exam: REGULAR RHYTHM, +S1, +S2 - GI/Abdominal Exam GI & Abdominal Exam: Soft, Normal Bowel Sounds. absent: Tenderness - Extremities Exam Extremities Exam: absent: Pedal Edema - Neurological Exam Neurological Exam: Alert, Awake, Oriented x3 Assessment and Plan - Assessment and Plan (Free Text) Assessment: Rhabdomyolysis Elevated liver enzymes Acute psychosis Substance abuse Leukocytosis - resolved Tachycardia Plan: Patient is much more calm this morning. His heart rate has normalized on propanolol. White blood cell count has normalized. Urine and blood cultures are negative. Echocardiogram is negative for thrombus. Mild tricuspid regurgitation is seen. continue IV fluids for rhabdomyolysis. awaiting repeat CPK. CPK levels were up to 10,000 yesterday.
[2018-05-30] MEDS ORDERED: Vitamins A & D Oint UD Foilpak TOP PRN (09:00)
[2018-05-30 10:19] LABS: CK MB% 0.2 % (2.5-3.0); CK-MB 18.1 ng/mL (0.0-3.6)
--- NOTE | 2018-05-30 10:33 | CP.PCM.PCO ---
Physician Communication Note - Physician Communication Note Physician Communication Note: confusion/behaviour sec to bzd with polysubstance. recommend psych.
--- NOTE | 2018-05-30 11:03 | CP.CCUPN ---
<Amandeep Raygoza - Last Filed: 05/30/18 11:57> CCU Subjective - Physician Review Subjective (Free Text): 05/30/18 11:02 Patient seen and evaluated at bedside in no acute distress. As per 1:1 sitter overnight patient was having conversations with people who were not in the room. Patient denies hallucinations, chest pain, abdominal pain, nausea, vomiting, diarrhea, fevers, chills, headache, dysuria. Patient states he feels better than yesterday. CCU Objective - Vital Signs / Intake & Output Vital Signs (Last 4 hours): Vital Signs Pulse BP 05/30/18 10:48 78 123/51 L 05/30/18 07:05 80 Intake and Output (Last 8hrs): Intake & Output 05/29/18 05/30/18 05/30/18 22:59 06:59 14:59 Intake Total 2400 1840 Output Total 1600 2200 Balance 800 -360 Weight 65.969 kg Intake: IV 1600 1600 Left Forearm 1600 1200 Left Hand 400 Oral 800 240 Output: Urine 1000 2200 Urethral (Arnold) 1000 2200 Stool 600 Other: # Bowel Movements 1 - Physical Exam Head: Positive for: Atraumatic, Normocephalic Pupils: Positive for: PERRL Extroacular Muscles: Positive for: EOMI Conjunctiva: Positive for: Normal Mouth: Positive for: Moist Mucous Membranes Neck: Positive for: Normal Range of Motion Respiratory/Chest: Positive for: Clear to Auscultation, Good Air Exchange. Negative for: Respiratory Distress, Accessory Muscle Use Cardiovascular: Positive for: Tachycardic Abdomen: Positive for: Normal Bowel Sounds. Negative for: Tenderness, Distention, Peritoneal Signs Upper Extremity: Positive for: Normal Inspection. Negative for: Cyanosis, Edema Lower Extremity: Positive for: Normal Inspection. Negative for: Edema Neurological: Positive for: GCS=15 Skin: Positive for: Warm, Dry, Normal Color, Other (multiple tatoos noted on b/l ue, upper chest). Negative for: Rashes Psychiatric: Positive for: Alert, Agitated, Hallucinations (auditory hallucinations), Other (slurred speech. AxOx2 ) - Medications Active Medications: Active Medications Generic Name Dose Route Start Last Admin Trade Name Freq PRN Reason Stop Dose Admin Heparin Sodium (Porcine) 5,000 units 05/29/18 06:00 05/30/18 05:23 Heparin SC 5,000 units Q8 ENRIQUE Administration Protocol Sodium Chloride 1,000 mls @ 200 mls/hr 05/30/18 09:25 05/30/18 10:54 Sodium Chloride 0.9% IV 200 mls/hr .Q5H ENRIQUE Administration Lorazepam 1 mg 05/29/18 11:55 05/30/18 08:28 Ativan IVP 1 mg Q4H PRN Administration Agitation Protocol Pantoprazole Sodium 40 mg 05/31/18 07:30 Protonix Ec Tab PO ACB ERNIQUE Propranolol HCl 10 mg 05/29/18 10:00 05/30/18 10:48 Inderal PO 10 mg TID ENRIQUE Administration Vitamin A 1 ea 05/30/18 09:00 Vitamin A & D Oint Ud Foilpak TOP Q8 PRN Dry skin - Patient Studies Lab Studies: Microbiology Studies 05/29/18 08:00 Blood Culture - Preliminary Blood NO GROWTH AFTER 24 HOURS 05/29/18 07:50 Blood Culture - Preliminary Blood NO GROWTH AFTER 24 HOURS Lab Studies 05/30/18 05/30/18 05/30/18 Range/Units 05:30 05:30 05:30 WBC 9.2 D (4.5-11.0) 10^3/uL RBC 4.17 (3.5-6.1) 10^6/uL Hgb 12.9 L (14.0-18.0) g/dL Hct 37.1 L (42.0-52.0) % MCV 89.0 (80.0-105.0) fl MCH 30.9 (25.0-35.0) pg MCHC 34.8 (31.0-37.0) g/dl RDW 12.1 (11.5-14.5) % Plt Count 210 (120.0-450.0) 10^3/uL MPV 9.5 (7.0-11.0) fl Gran % 66.6 (50.0-68.0) % Lymph % (Auto) 20.4 L (22.0-35.0) % [place] % (Auto) 12.1 H (1.0-6.0) % Eos % (Auto) 0.7 L (1.5-5.0) % Baso % (Auto) 0.2 (0.0-3.0) % Gran # 6.14 (1.4-6.5) Lymph # (Auto) 1.9 (1.2-3.4) [place] # (Auto) 1.1 H (0.1-0.6) Eos # (Auto) 0.1 (0.0-0.7) Baso # (Auto) 0.02 (0.0-2.0) K/mm3 ESR (0.0-15.0) mm/hr APTT 24.4 L (25.1-36.5) Seconds Sodium 138 (132-148) mmol/L Potassium 4.0 (3.6-5.0) mmol/L Chloride 106 (98-107) mmol/L Carbon Dioxide 26 (21-33) mmol/L Anion Gap 10 (10-20) BUN 8 (7-21) mg/dL Creatinine 0.6 L (0.8-1.5) mg/dl Est GFR ( Amer) > 60 Est GFR (Non-Af Amer) > 60 POC Glucose (mg/dL) (65-110) mg/dL Random Glucose 96 (70-110) mg/dL Calcium 8.6 (8.4-10.5) mg/dL Phosphorus 2.8 (2.5-4.5) mg/dL Total Bilirubin 0.9 (0.2-1.3) mg/dL AST 249 H D (17-59) U/L ALT 68 H (7-56) U/L Alkaline Phosphatase 55 (38-126) U/L Lactate Dehydrogenase 1078 H (333-699) U/L Total Creatine Kinase 34051 H (35-230) U/L CK-MB (CK-2) 18.1 H (0.0-3.6) ng/mL CK-MB (CK-2) % 0.2 L (2.5-3.0) % Troponin I < 0.01 D ng/mL Total Protein 6.6 (5.8-8.3) g/dL Albumin 3.7 (3.0-4.8) g/dL Globulin 2.9 gm/dL Albumin/Globulin Ratio 1.3 (1.1-1.8) Triglycerides 70 (35-160) mg/dL Cholesterol 110 L (130-200) mg/dL LDL Cholesterol Direct 72 (0-129) mg/dL HDL Cholesterol 34 (29-60) mg/dL Procalcitonin (0.19-0.49) NG/ML RPR (NONREACTIVE) 05/29/18 05/29/18 05/29/18 Range/Units 22:41 08:00 08:00 WBC (4.5-11.0) 10^3/uL RBC (3.5-6.1) 10^6/uL Hgb (14.0-18.0) g/dL Hct (42.0-52.0) % MCV (80.0-105.0) fl MCH (25.0-35.0) pg MCHC (31.0-37.0) g/dl RDW (11.5-14.5) % Plt Count (120.0-450.0) 10^3/uL MPV (7.0-11.0) fl Gran % (50.0-68.0) % Lymph % (Auto) (22.0-35.0) % [place] % (Auto) (1.0-6.0) % Eos % (Auto) (1.5-5.0) % Baso % (Auto) (0.0-3.0) % Gran # (1.4-6.5) Lymph # (Auto) (1.2-3.4) [place] # (Auto) (0.1-0.6) Eos # (Auto) (0.0-0.7) Baso # (Auto) (0.0-2.0) K/mm3 ESR 6 (0.0-15.0) mm/hr APTT (25.1-36.5) Seconds Sodium (132-148) mmol/L Potassium (3.6-5.0) mmol/L Chloride (98-107) mmol/L Carbon Dioxide (21-33) mmol/L Anion Gap (10-20) BUN (7-21) mg/dL Creatinine (0.8-1.5) mg/dl Est GFR ( Amer) Est GFR (Non-Af Amer) POC Glucose (mg/dL) 80 (65-110) mg/dL Random Glucose (70-110) mg/dL Calcium (8.4-10.5) mg/dL Phosphorus (2.5-4.5) mg/dL Total Bilirubin (0.2-1.3) mg/dL AST (17-59) U/L ALT (7-56) U/L Alkaline Phosphatase (38-126) U/L Lactate Dehydrogenase (333-699) U/L Total Creatine Kinase (35-230) U/L CK-MB (CK-2) (0.0-3.6) ng/mL CK-MB (CK-2) % (2.5-3.0) % Troponin I ng/mL Total Protein (5.8-8.3) g/dL Albumin (3.0-4.8) g/dL Globulin gm/dL Albumin/Globulin Ratio (1.1-1.8) Triglycerides (35-160) mg/dL Cholesterol (130-200) mg/dL LDL Cholesterol Direct (0-129) mg/dL HDL Cholesterol (29-60) mg/dL Procalcitonin (0.19-0.49) NG/ML RPR Nonreactive (NONREACTIVE) 05/29/18 Range/Units 06:20 WBC (4.5-11.0) 10^3/uL RBC (3.5-6.1) 10^6/uL Hgb (14.0-18.0) g/dL Hct (42.0-52.0) % MCV (80.0-105.0) fl MCH (25.0-35.0) pg MCHC (31.0-37.0) g/dl RDW (11.5-14.5) % Plt Count (120.0-450.0) 10^3/uL MPV (7.0-11.0) fl Gran % (50.0-68.0) % Lymph % (Auto) (22.0-35.0) % [place] % (Auto) (1.0-6.0) % Eos % (Auto) (1.5-5.0) % Baso % (Auto) (0.0-3.0) % Gran # (1.4-6.5) Lymph # (Auto) (1.2-3.4) [place] # (Auto) (0.1-0.6) Eos # (Auto) (0.0-0.7) Baso # (Auto) (0.0-2.0) K/mm3 ESR (0.0-15.0) mm/hr APTT (25.1-36.5) Seconds Sodium (132-148) mmol/L Potassium (3.6-5.0) mmol/L Chloride (98-107) mmol/L Carbon Dioxide (21-33) mmol/L Anion Gap (10-20) BUN (7-21) mg/dL Creatinine (0.8-1.5) mg/dl Est GFR ( Amer) Est GFR (Non-Af Amer) POC Glucose (mg/dL) (65-110) mg/dL Random Glucose (70-110) mg/dL Calcium (8.4-10.5) mg/dL Phosphorus (2.5-4.5) mg/dL Total Bilirubin (0.2-1.3) mg/dL AST (17-59) U/L ALT (7-56) U/L Alkaline Phosphatase (38-126) U/L Lactate Dehydrogenase (333-699) U/L Total Creatine Kinase (35-230) U/L CK-MB (CK-2) (0.0-3.6) ng/mL CK-MB (CK-2) % (2.5-3.0) % Troponin I ng/mL Total Protein (5.8-8.3) g/dL Albumin (3.0-4.8) g/dL Globulin gm/dL Albumin/Globulin Ratio (1.1-1.8) Triglycerides (35-160) mg/dL Cholesterol (130-200) mg/dL LDL Cholesterol Direct (0-129) mg/dL HDL Cholesterol (29-60) mg/dL Procalcitonin 0.10 L (0.19-0.49) NG/ML RPR (NONREACTIVE) Laboratory Results - last 24 hr 05/29/18 05/29/18 05/29/18 06:20 08:00 08:00 WBC RBC Hgb Hct MCV MCH MCHC RDW Plt Count MPV Gran % Lymph % (Auto) [place] % (Auto) Eos % (Auto) Baso % (Auto) Gran # Lymph # (Auto) [place] # (Auto) Eos # (Auto) Baso # (Auto) ESR 6 APTT Sodium Potassium Chloride Carbon Dioxide Anion Gap BUN Creatinine Est GFR ( Amer) Est GFR (Non-Af Amer) POC Glucose (mg/dL) Random Glucose Calcium Phosphorus Total Bilirubin AST ALT Alkaline Phosphatase Lactate Dehydrogenase Total Creatine Kinase CK-MB (CK-2) CK-MB (CK-2) % Troponin I Total Protein Albumin Globulin Albumin/Globulin Ratio Triglycerides Cholesterol LDL Cholesterol Direct HDL Cholesterol Procalcitonin 0.10 L RPR Nonreactive 05/29/18 05/30/18 05/30/18 22:41 05:30 05:30 WBC 9.2 D RBC 4.17 Hgb 12.9 L Hct 37.1 L MCV 89.0 MCH 30.9 MCHC 34.8 RDW 12.1 Plt Count 210 MPV 9.5 Gran % 66.6 Lymph % (Auto) 20.4 L [place] % (Auto) 12.1 H Eos % (Auto) 0.7 L Baso % (Auto) 0.2 Gran # 6.14 Lymph # (Auto) 1.9 [place] # (Auto) 1.1 H Eos # (Auto) 0.1 Baso # (Auto) 0.02 ESR APTT Sodium 138 Potassium 4.0 Chloride 106 Carbon Dioxide 26 Anion Gap 10 BUN 8 Creatinine 0.6 L Est GFR ( Amer) > 60 Est GFR (Non-Af Amer) > 60 POC Glucose (mg/dL) 80 Random Glucose 96 Calcium 8.6 Phosphorus 2.8 Total Bilirubin 0.9 AST 249 H D ALT 68 H Alkaline Phosphatase 55 Lactate Dehydrogenase 1078 H Total Creatine Kinase 85419 H CK-MB (CK-2) 18.1 H CK-MB (CK-2) % 0.2 L Troponin I < 0.01 D Total Protein 6.6 Albumin 3.7 Globulin 2.9 Albumin/Globulin Ratio 1.3 Triglycerides 70 Cholesterol 110 L LDL Cholesterol Direct 72 HDL Cholesterol 34 Procalcitonin RPR 05/30/18 05:30 WBC RBC Hgb Hct MCV MCH MCHC RDW Plt Count MPV Gran % Lymph % (Auto) [place] % (Auto) Eos % (Auto) Baso % (Auto) Gran # Lymph # (Auto) [place] # (Auto) Eos # (Auto) Baso # (Auto) ESR APTT 24.4 L Sodium Potassium Chloride Carbon Dioxide Anion Gap BUN Creatinine Est GFR ( Amer) Est GFR (Non-Af Amer) POC Glucose (mg/dL) Random Glucose Calcium Phosphorus Total Bilirubin AST ALT Alkaline Phosphatase Lactate Dehydrogenase Total Creatine Kinase CK-MB (CK-2) CK-MB (CK-2) % Troponin I Total Protein Albumin Globulin Albumin/Globulin Ratio Triglycerides Cholesterol LDL Cholesterol Direct HDL Cholesterol Procalcitonin RPR Review of Systems - Constitutional Constitutional: absent: Fever, Chills - Cardiovascular Cardiovascular: absent: Chest Pain - Respiratory Respiratory: absent: Cough, Dyspnea - Gastrointestinal Gastrointestinal: absent: Abdominal Pain, Diarrhea, Nausea, Vomiting - Genitourinary Genitourinary: absent: Dysuria - Neurological Neurological: absent: Dizziness, Headaches - Psychiatric Psychiatric: Anxiety. absent: Confusion Critical Care Progress Note - Nutrition Nutrition: Nutrition Category Date Time Status Heart Healthy Diet [DIET] Diets 05/29/18 Breakfast Active Assessment/Plan - Assessment and Plan (Free Text) Assessment: 17 y/o M with PMHX of ADHD, polysubstance abuse and dependence, h/o inpatient rehab and detoxes, anxiety, psychosis admaitted initially to psychiatry unit for delusions/hallucinations most likely secondary to polysubstance abuse Neuro/Psych: -Patient continues to have incoherent speech with slurring of his words -Psych will continue to follow patient, is willing to take patient once medically cleared -Continue with ativan PRN for agitation -Continue with PO multivitamin, folic acid, thiamine -Neuro on consult; CT head: negative Cardiovascular: -Patient was found to be tachycardic upon admission -Cardiology on consult and has started propranolol; HR is now controlled -Maintain MAP>65 Pulmonology -Will maintain o2 sat>90%, patient currently on room air and tolerating Gastrointestinal -Transaminitis; most likely secondary to rhabdomyolysis; will continue to monitor as rhabdo is being treated -Continue with Protonix for GI prophylaxis Heme -DVT prophylaxis with heparin -Continue with IVF@200 -Continue to monitor CPK as patient is in rhabdo -Monitor Renal function and I/O, daily weights Disposition: Patient is hemodynamically stable, does not require ventilatory support, and no longer in agitation that requires precedex drip or 4 point restraints. Discussed with patient's primary regarding transfer to the medical floors. Patient will be transferred to telemetry as requested by PMD. <Arnulfo Vogel - Last Filed: 05/30/18 12:53> CCU Objective - Vital Signs / Intake & Output Vital Signs (Last 4 hours): Vital Signs Pulse BP 05/30/18 10:48 78 123/51 L Intake and Output (Last 8hrs): Intake & Output 05/29/18 05/30/18 05/30/18 22:59 06:59 14:59 Intake Total 2400 1840 Output Total 1600 2200 Balance 800 -360 Weight 65.969 kg Intake: IV 1600 1600 Left Forearm 1600 1200 Left Hand 400 Oral 800 240 Output: Urine 1000 2200 Urethral (Arnold) 1000 2200 Stool 600 Other: # Bowel Movements 1 - Medications Active Medications: Active Medications Generic Name Dose Route Start Last Admin Trade Name Freq PRN Reason Stop Dose Admin Folic Acid 1 mg 05/30/18 12:15 05/30/18 12:19 Folic Acid PO 1 mg DAILY ENRIQUE Administration Heparin Sodium (Porcine) 5,000 units 05/29/18 06:00 05/30/18 05:23 Heparin SC 5,000 units Q8 ENRIQUE Administration Protocol Sodium Chloride 1,000 mls @ 200 mls/hr 05/30/18 09:25 05/30/18 10:54 Sodium Chloride 0.9% IV 200 mls/hr .Q5H ENRIQUE Administration Lorazepam 1 mg 05/29/18 11:55 05/30/18 12:43 Ativan IVP 1 mg Q4H PRN Administration Agitation Protocol Multivitamins/Minerals 1 tab 05/31/18 12:00 Therapeutic-M Tab PO 0800 ENRIQUE Pantoprazole Sodium 40 mg 05/31/18 07:30 Protonix Ec Tab PO ACB ENRIQUE Propranolol HCl 10 mg 05/29/18 10:00 05/30/18 10:48 Inderal PO 10 mg TID ENRIQUE Administration Thiamine HCl 100 mg 05/30/18 12:00 05/30/18 12:19 Vitamin B1 Tab PO 100 mg DAILY ENRIQUE Administration Vitamin A 1 ea 05/30/18 09:00 05/30/18 12:19 Vitamin A & D Oint Ud Foilpak TOP 1 ea Q8 PRN Administration Dry skin - Patient Studies Lab Studies: Microbiology Studies 05/29/18 08:00 Blood Culture - Preliminary Blood NO GROWTH AFTER 24 HOURS 05/29/18 07:50 Blood Culture - Preliminary Blood NO GROWTH AFTER 24 HOURS Lab Studies 05/30/18 05/30/18 05/30/18 Range/Units 05:30 05:30 05:30 WBC 9.2 D (4.5-11.0) 10^3/uL RBC 4.17 (3.5-6.1) 10^6/uL Hgb 12.9 L (14.0-18.0) g/dL Hct 37.1 L (42.0-52.0) % MCV 89.0 (80.0-105.0) fl MCH 30.9 (25.0-35.0) pg MCHC 34.8 (31.0-37.0) g/dl RDW 12.1 (11.5-14.5) % Plt Count 210 (120.0-450.0) 10^3/uL MPV 9.5 (7.0-11.0) fl Gran % 66.6 (50.0-68.0) % Lymph % (Auto) 20.4 L (22.0-35.0) % [place] % (Auto) 12.1 H (1.0-6.0) % Eos % (Auto) 0.7 L (1.5-5.0) % Baso % (Auto) 0.2 (0.0-3.0) % Gran # 6.14 (1.4-6.5) Lymph # (Auto) 1.9 (1.2-3.4) [place] # (Auto) 1.1 H (0.1-0.6) Eos # (Auto) 0.1 (0.0-0.7) Baso # (Auto) 0.02 (0.0-2.0) K/mm3 APTT 24.4 L (25.1-36.5) Seconds Sodium 138 (132-148) mmol/L Potassium 4.0 (3.6-5.0) mmol/L Chloride 106 (98-107) mmol/L Carbon Dioxide 26 (21-33) mmol/L Anion Gap 10 (10-20) BUN 8 (7-21) mg/dL Creatinine 0.6 L (0.8-1.5) mg/dl Est GFR ( Amer) > 60 Est GFR (Non-Af Amer) > 60 POC Glucose (mg/dL) (65-110) mg/dL Random Glucose 96 (70-110) mg/dL Calcium 8.6 (8.4-10.5) mg/dL Phosphorus 2.8 (2.5-4.5) mg/dL Total Bilirubin 0.9 (0.2-1.3) mg/dL AST 249 H D (17-59) U/L ALT 68 H (7-56) U/L Alkaline Phosphatase 55 (38-126) U/L Lactate Dehydrogenase 1078 H (333-699) U/L Total Creatine Kinase 00385 H (35-230) U/L CK-MB (CK-2) 18.1 H (0.0-3.6) ng/mL CK-MB (CK-2) % 0.2 L (2.5-3.0) % Troponin I < 0.01 D ng/mL Total Protein 6.6 (5.8-8.3) g/dL Albumin 3.7 (3.0-4.8) g/dL Globulin 2.9 gm/dL Albumin/Globulin Ratio 1.3 (1.1-1.8) Triglycerides 70 (35-160) mg/dL Cholesterol 110 L (130-200) mg/dL LDL Cholesterol Direct 72 (0-129) mg/dL HDL Cholesterol 34 (29-60) mg/dL Procalcitonin (0.19-0.49) NG/ML RPR (NONREACTIVE) HIV 1&2 Ag/Ab, 4th Gen (Nonreactive) 05/29/18 05/29/18 05/29/18 Range/Units 22:41 08:00 08:00 WBC (4.5-11.0) 10^3/uL RBC (3.5-6.1) 10^6/uL Hgb (14.0-18.0) g/dL Hct (42.0-52.0) % MCV (80.0-105.0) fl MCH (25.0-35.0) pg MCHC (31.0-37.0) g/dl RDW (11.5-14.5) % Plt Count (120.0-450.0) 10^3/uL MPV (7.0-11.0) fl Gran % (50.0-68.0) % Lymph % (Auto) (22.0-35.0) % [place] % (Auto) (1.0-6.0) % Eos % (Auto) (1.5-5.0) % Baso % (Auto) (0.0-3.0) % Gran # (1.4-6.5) Lymph # (Auto) (1.2-3.4) [place] # (Auto) (0.1-0.6) Eos # (Auto) (0.0-0.7) Baso # (Auto) (0.0-2.0) K/mm3 APTT (25.1-36.5) Seconds Sodium (132-148) mmol/L Potassium (3.6-5.0) mmol/L Chloride (98-107) mmol/L Carbon Dioxide (21-33) mmol/L Anion Gap (10-20) BUN (7-21) mg/dL Creatinine (0.8-1.5) mg/dl Est GFR ( Amer) Est GFR (Non-Af Amer) POC Glucose (mg/dL) 80 (65-110) mg/dL Random Glucose (70-110) mg/dL Calcium (8.4-10.5) mg/dL Phosphorus (2.5-4.5) mg/dL Total Bilirubin (0.2-1.3) mg/dL AST (17-59) U/L ALT (7-56) U/L Alkaline Phosphatase (38-126) U/L Lactate Dehydrogenase (333-699) U/L Total Creatine Kinase (35-230) U/L CK-MB (CK-2) (0.0-3.6) ng/mL CK-MB (CK-2) % (2.5-3.0) % Troponin I ng/mL Total Protein (5.8-8.3) g/dL Albumin (3.0-4.8) g/dL Globulin gm/dL Albumin/Globulin Ratio (1.1-1.8) Triglycerides (35-160) mg/dL Cholesterol (130-200) mg/dL LDL Cholesterol Direct (0-129) mg/dL HDL Cholesterol (29-60) mg/dL Procalcitonin (0.19-0.49) NG/ML RPR Nonreactive (NONREACTIVE) HIV 1&2 Ag/Ab, 4th Gen Nonreactive (Nonreactive) 05/29/18 Range/Units 06:20 WBC (4.5-11.0) 10^3/uL RBC (3.5-6.1) 10^6/uL Hgb (14.0-18.0) g/dL Hct (42.0-52.0) % MCV (80.0-105.0) fl MCH (25.0-35.0) pg MCHC (31.0-37.0) g/dl RDW (11.5-14.5) % Plt Count (120.0-450.0) 10^3/uL MPV (7.0-11.0) fl Gran % (50.0-68.0) % Lymph % (Auto) (22.0-35.0) % [place] % (Auto) (1.0-6.0) % Eos % (Auto) (1.5-5.0) % Baso % (Auto) (0.0-3.0) % Gran # (1.4-6.5) Lymph # (Auto) (1.2-3.4) [place] # (Auto) (0.1-0.6) Eos # (Auto) (0.0-0.7) Baso # (Auto) (0.0-2.0) K/mm3 APTT (25.1-36.5) Seconds Sodium (132-148) mmol/L Potassium (3.6-5.0) mmol/L Chloride (98-107) mmol/L Carbon Dioxide (21-33) mmol/L Anion Gap (10-20) BUN (7-21) mg/dL Creatinine (0.8-1.5) mg/dl Est GFR ( Amer) Est GFR (Non-Af Amer) POC Glucose (mg/dL) (65-110) mg/dL Random Glucose (70-110) mg/dL Calcium (8.4-10.5) mg/dL Phosphorus (2.5-4.5) mg/dL Total Bilirubin (0.2-1.3) mg/dL AST (17-59) U/L ALT (7-56) U/L Alkaline Phosphatase (38-126) U/L Lactate Dehydrogenase (333-699) U/L Total Creatine Kinase (35-230) U/L CK-MB (CK-2) (0.0-3.6) ng/mL CK-MB (CK-2) % (2.5-3.0) % Troponin I ng/mL Total Protein (5.8-8.3) g/dL Albumin (3.0-4.8) g/dL Globulin gm/dL Albumin/Globulin Ratio (1.1-1.8) Triglycerides (35-160) mg/dL Cholesterol (130-200) mg/dL LDL Cholesterol Direct (0-129) mg/dL HDL Cholesterol (29-60) mg/dL Procalcitonin 0.10 L (0.19-0.49) NG/ML RPR (NONREACTIVE) HIV 1&2 Ag/Ab, 4th Gen (Nonreactive) Laboratory Results - last 24 hr 05/29/18 05/29/18 05/29/18 06:20 08:00 08:00 WBC RBC Hgb Hct MCV MCH MCHC RDW Plt Count MPV Gran % Lymph % (Auto) [place] % (Auto) Eos % (Auto) Baso % (Auto) Gran # Lymph # (Auto) [place] # (Auto) Eos # (Auto) Baso # (Auto) APTT Sodium Potassium Chloride Carbon Dioxide Anion Gap BUN Creatinine Est GFR ( Amer) Est GFR (Non-Af Amer) POC Glucose (mg/dL) Random Glucose Calcium Phosphorus Total Bilirubin AST ALT Alkaline Phosphatase Lactate Dehydrogenase Total Creatine Kinase CK-MB (CK-2) CK-MB (CK-2) % Troponin I Total Protein Albumin Globulin Albumin/Globulin Ratio Triglycerides Cholesterol LDL Cholesterol Direct HDL Cholesterol Procalcitonin 0.10 L RPR Nonreactive HIV 1&2 Ag/Ab, 4th Gen Nonreactive 05/29/18 05/30/18 05/30/18 22:41 05:30 05:30 WBC 9.2 D RBC 4.17 Hgb 12.9 L Hct 37.1 L MCV 89.0 MCH 30.9 MCHC 34.8 RDW 12.1 Plt Count 210 MPV 9.5 Gran % 66.6 Lymph % (Auto) 20.4 L [place] % (Auto) 12.1 H Eos % (Auto) 0.7 L Baso % (Auto) 0.2 Gran # 6.14 Lymph # (Auto) 1.9 [place] # (Auto) 1.1 H Eos # (Auto) 0.1 Baso # (Auto) 0.02 APTT Sodium 138 Potassium 4.0 Chloride 106 Carbon Dioxide 26 Anion Gap 10 BUN 8 Creatinine 0.6 L Est GFR ( Amer) > 60 Est GFR (Non-Af Amer) > 60 POC Glucose (mg/dL) 80 Random Glucose 96 Calcium 8.6 Phosphorus 2.8 Total Bilirubin 0.9 AST 249 H D ALT 68 H Alkaline Phosphatase 55 Lactate Dehydrogenase 1078 H Total Creatine Kinase 41521 H CK-MB (CK-2) 18.1 H CK-MB (CK-2) % 0.2 L Troponin I < 0.01 D Total Protein 6.6 Albumin 3.7 Globulin 2.9 Albumin/Globulin Ratio 1.3 Triglycerides 70 Cholesterol 110 L LDL Cholesterol Direct 72 HDL Cholesterol 34 Procalcitonin RPR HIV 1&2 Ag/Ab, 4th Gen 05/30/18 05:30 WBC RBC Hgb Hct MCV MCH MCHC RDW Plt Count MPV Gran % Lymph % (Auto) [place] % (Auto) Eos % (Auto) Baso % (Auto) Gran # Lymph # (Auto) [place] # (Auto) Eos # (Auto) Baso # (Auto) APTT 24.4 L Sodium Potassium Chloride Carbon Dioxide Anion Gap BUN Creatinine Est GFR ( Amer) Est GFR (Non-Af Amer) POC Glucose (mg/dL) Random Glucose Calcium Phosphorus Total Bilirubin AST ALT Alkaline Phosphatase Lactate Dehydrogenase Total Creatine Kinase CK-MB (CK-2) CK-MB (CK-2) % Troponin I Total Protein Albumin Globulin Albumin/Globulin Ratio Triglycerides Cholesterol LDL Cholesterol Direct HDL Cholesterol Procalcitonin RPR HIV 1&2 Ag/Ab, 4th Gen Critical Care Progress Note - Nutrition Nutrition: Nutrition Category Date Time Status Heart Healthy Diet [DIET] Diets 05/29/18 Breakfast Active Addendum Addendum: 05/30/18 12:53 ICU Attending Addendum Patient seen and examined. Case reviewed on round with housestaff. Agree with resident note above with the following additions/exceptions: 17M hx of ADHD, polysubstance abuse and dependence, h/o inpatient rehab and detoxes, anxiety, psychosis admaitted initially to psychiatry unit for delusions/hallucinations transferred to ICU for rhabdo mmt and agitation control. -Psych on board managing psychosis Recommend outpatient in-lab sleep study Cardiology on consult and has started propranolol managing HR which is now controlled Stable for transfer out of ICU will eventually need to be sent back to psych d/c protnix, no need for gi ppx Rest of care as above Bilal Vogel MD Pulmonary Critical Care and Sleep Medicine
--- NOTE | 2018-05-30 14:21 | PN ---
DATE: 05/30/2018 REASON FOR CONSULTATION AND FOLLOWUP: Sinus tachycardia, possible acute psychosis. The patient denies any chest pain, shortness of breath. Awake and alert, but still hallucinating as per nurses. OBJECTIVE: Examination as follows: VITAL SIGNS: Temperature afebrile, heart rate 80 and blood pressure 126/78. HEENT: PERRLA. Extraocular muscles intact. NECK: Supple. No carotid bruit or thyromegaly. CHEST: Clear to auscultation. HEART: S1 and S2 irregular. ABDOMEN: Soft. EXTREMITIES: Clubbing and cyanosis negative. LABORATORY DATA: Blood workup as follows: WBC 9.8, hemoglobin 12.9, hematocrit 37.1 and platelet count 210,000. Chemistry shows sodium 130, potassium 4, chloride 106, carbon dioxide of 26, anion gap of 10, BUN 8 and creatinine 0.6. Total CPK 10,355. Troponin remains negative. Tox screen is positive for cannabis indica. IMPRESSION: A 17-year-old male with no significant past medical history admitted with acute psychosis. Urine tox screen is positive for cannabis indica. He found to be tachycardic as well as acute rhabdomyolysis. The patient had echocardiography done yesterday that shows no vegetation, preserved LV function, ejection fraction 55% to 60%, trace mitral regurgitation, mild tricuspid regurgitation, RV systolic pressure of 32. No evidence of vegetation noted. Blood culture sent yesterday, so far 24 hours blood culture is negative. The patient started on propranolol. Heart rate is stable now in 70s-80s. RECOMMENDATIONS: Followup blood culture. Continue DVT prophylaxis, continue propranolol, continue IV fluid for rhabdomyolysis. Repeat CPK, troponin in the morning. Supplement electrolytes as needed. We will follow with you. Thank you Dr. Zhu for providing us the opportunity in taking care of the patient, Jai Hess. Chari Jha MD
--- NOTE | 2018-05-30 15:10 | PN ---
DATE: 05/30/2018 FOLLOWUP NOTE SUBJECTIVE: The patient was followed up today in the ICU. The patient presented to be confused, disoriented, has episodes of agitation, restless behavior. As per one-to-one, the patient had restless night, slept only for a couple of hours. The patient was seen and examined today in the ICU. The patient presented to be confused. The patient does not know where he is. The patient does not know what was the circumstances of his admission to the psychiatric inpatient unit and ICU. The patient has no basic understanding of his diagnosis. The patient was not able to indicate his preferences other than he wants to attend his relative's republican on Sunday. The patient was not able to comprehend his diagnosis of rhabdomyolysis and what are the risks and consequences of him leaving against medical advise. Discussed with swing saw operator today. Considering the fact that the patient does not have factual understanding of his diagnosis, was not able to indicate his preferences. The patient was not able to understand the potential risk and consequences of leaving against medical advice. The patient has no insight or appreciation. The patient has no reasoning ability. The patient lacks capacity to sign against medical advice. The patient gave permission to talk to his father, Anthony Hess, . As per resident, the patient's father expressed his concerns about the patient's addiction to substances. The patient has history of addiction to benzodiazepines as well as marijuana. The patient never verbalized any thoughts of killing himself prior to admission. The patient never verbalized thoughts of harming others, but the patient was psychotic prior to admission. Vital signs reviewed. Temperature is 98.8. The patient's pulse is 78, blood pressure 123/51, respiration 14. Medications reviewed. The patient is on folic acid, heparin, Ativan 1 mg IV push every 4 hours as needed for agitation, multivitamins, Inderal. The patient refused to take medication. The patient is on sodium chloride, vitamin B1, vitamin A and Geodon will be implemented today. Labs reviewed, most recent was from today. Leukocyte is trending down. Coagulation reviewed. Chemistry reviewed. Creatine kinase is going up. AST and ALT are climbing up as well. Urinalysis: Leukocyte esterase trace. Toxicology positive for cannabis. Microbiology reviewed. MENTAL STATUS EXAMINATION: The patient presented to be sleepy, easily arousable, confused. Whenever the patient wakes up, overproductive and pressured speech. The patient has episodes of confusion. Thought process circumstantial and tangential. Mood described as I want to go for the republican. Affect was constricted. Thought content, the patient has episodes of confusion and disorganized thoughts and behavior, hallucinations. Insight and judgement are severely impaired. Impulses are unpredictable. IMPRESSION: Substance-induced psychosis, rule out synthetic drug use, rule out bipolar disorder. The patient also in delirium stage due to general medical condition. PLAN: Continue current management. Continue current medications. The patient lacks capacity to sign against medical advice. The patient needs to stay in the hospital and complete the treatment. Collaterals were obtained from the patient's family. The patient is on one-to-one. Discussed with swing saw operator today. We will follow up and advise accordingly. Thank you very much for letting me participate in the care of your patient. Flor Leger MD
--- NOTE | 2018-05-30 15:41 | CP.PCM.PCO ---
Addendum Addendum: 05/30/18 15:40 this conventional underwriter tried to f/u on this pt as per medical team request pt is s/p IM of Ben, deeply sleeping pt's girlfriend is next to the pt will f/u tomorrow
[2018-05-30 18:56] VITALS: TEMP 96.8
--- NOTE | 2018-05-30 20:00 | PN ---
DATE: 05/30/2018 LOCATION: The patient is seen earlier this morning in [facility], bed 6. SUBJECTIVE: The patient is nontoxic. PHYSICAL EXAMINATION VITAL SIGNS: Temperature is 98, blood pressure is 125/50, respiratory rate of 20, heart rate of 107. HEENT: Unremarkable. NECK: Supple. LUNGS: Decreased breath sounds. HEART: Normal S1, S2. ABDOMEN: Soft, nontender. LABORATORY DATA: Reveals white count of 9.2, hemoglobin of 12, platelets of 210,000. Chemistry reveals BUN of 8, creatinine of 0.6. Creatine kinase is noted and procalcitonin is noted. Microbiology reveals blood cultures are negative. Review of orders reveals the patient to be off of antibiotics. ASSESSMENT AND PLAN: A 17-year-old male with history of ADHD, conduct disorder, polysubstance abuse, was admitted from [facility] for agitation, to be combative, and admitted with psychosis, possible drug-related. Thus far, workup is negative, off of antibiotics. Cultures are negative from an infectious disease point of view. The patient's white count is now normal and Dr. Flor Leger's note is appreciated. We will continue to follow. The patient had a CAT scan of the head. May consider an MRI of the head. CAT scan had no acute intracranial findings. Davis Roe MD (Delete this signature block when dictator is a preceptor.) cc: MD Camilla (Delete if not dictated.)
[2018-05-31] MEDS: Sodium Chloride 0.9% 1,000 ML IV SCH ×3 (00:28→22:27)
--- NOTE | 2018-05-31 06:32 | CP.PCM.PN ---
<Dorita Coronel - Last Filed: 05/31/18 10:31> Subjective - Date & Time of Evaluation Date of Evaluation: 05/31/18 Time of Evaluation: 07:00 - Subjective Subjective: Infectious Disease Progress Note for Yann Peacock PGY3 Patient seen and examined at bedside. He is resting comfortably in bed, is afebrile without any complaints at this time. Objective - Vital Signs/Intake and Output Vital Signs (last 24 hours): Temp Pulse Resp BP Pulse Ox 96.8 F L 87 11 L 123/44 L 97 05/30/18 18:56 05/30/18 22:00 05/30/18 17:50 05/30/18 17:30 05/29/18 13:00 Intake and Output: 05/30/18 05/31/18 18:59 06:59 Intake Total 2700 Output Total 1500 Balance 1200 - Medications Medications: Current Medications Folic Acid (Folic Acid) 1 mg PO DAILY ENRIQUE Last Admin: 05/30/18 12:19 Dose: 1 mg Heparin Sodium (Porcine) (Heparin) 5,000 units SC Q8 ENRIQUE; Protocol Last Admin: 05/30/18 22:18 Dose: 5,000 units Sodium Chloride (Sodium Chloride 0.9%) 1,000 mls @ 200 mls/hr IV .Q5H ENRIQUE Last Admin: 05/31/18 06:18 Dose: 200 mls/hr Lorazepam (Ativan) 1 mg IVP Q4H PRN; Protocol PRN Reason: Agitation Last Admin: 05/30/18 12:43 Dose: 1 mg Lorazepam (Ativan) 2 mg IVP Q6H PRN; Protocol PRN Reason: Anxiety Last Admin: 05/31/18 05:21 Dose: 2 mg Multivitamins/Minerals (Therapeutic-M Tab) 1 tab PO 0800 ENRIQUE Propranolol HCl (Inderal) 10 mg PO TID [facility] Last Admin: 05/30/18 17:28 Dose: 10 mg Thiamine HCl (Vitamin B1 Tab) 100 mg PO DAILY ENRIQUE Last Admin: 05/30/18 12:19 Dose: 100 mg Vitamin A (Vitamin A & D Oint Ud Foilpak) 1 ea TOP Q8 PRN PRN Reason: Dry skin Last Admin: 05/30/18 12:19 Dose: 1 ea Ziprasidone (Geodon Inj) 20 mg IM TID PRN; Protocol PRN Reason: Agitation Last Admin: 05/31/18 06:22 Dose: 20 mg - Labs Labs: 05/30/18 05:30 05/30/18 05:30 APTT 24.4 Seconds (25.1-36.5) L 05/30/18 05:30 - Constitutional Appears: No Acute Distress - Head Exam Head Exam: ATRAUMATIC, NORMAL INSPECTION, NORMOCEPHALIC - Eye Exam Eye Exam: Normal appearance, PERRL Pupil Exam: NORMAL ACCOMODATION, PERRL - ENT Exam ENT Exam: Mucous Membranes Moist - Neck Exam Neck Exam: Full ROM - Respiratory Exam Respiratory Exam: Clear to Ausculation Bilateral, NORMAL BREATHING PATTERN. absent: Rales, Rhonchi, Wheezes - Cardiovascular Exam Cardiovascular Exam: REGULAR RHYTHM, +S1, +S2. absent: Gallop, Rubs, Murmur - GI/Abdominal Exam GI & Abdominal Exam: Soft, Normal Bowel Sounds. absent: Rigid, Tenderness, Mass, Rebound - Extremities Exam Extremities Exam: Normal Inspection. absent: Calf Tenderness, Pedal Edema - Neurological Exam Neurological Exam: Alert, Awake, CN II-XII Intact - Skin Skin Exam: Dry, Warm Assessment and Plan - Assessment and Plan (Free Text) Assessment: 1. Leukocytosis (resolved) 2. Rhabdomyolysis 3. Psychosis 4. Hx of polysubstance abuse Plan: Septic work up was negative. HIV and RPR negative. Leukocytosis resolved. Patient does not need antibiotics at this time. He is at risk for nosocomial infections at this time. Case seen, discussed and reviewed with Dr. Griffiths. Yann Coronel PGY3 <Chuy Griffiths - Last Filed: 05/31/18 18:11> Objective - Vital Signs/Intake and Output Vital Signs (last 24 hours): Temp Pulse Resp BP Pulse Ox 96.8 F L 67 67 H 128/65 97 05/30/18 18:56 05/31/18 10:54 05/31/18 10:30 05/31/18 12:00 05/29/18 13:00 Intake and Output: 05/31/18 05/31/18 06:59 18:59 Intake Total 2445 4225 Output Total 2665 Balance 2445 1560 - Medications Medications: Current Medications Folic Acid (Folic Acid) 1 mg PO DAILY [facility] Last Admin: 05/31/18 10:53 Dose: 1 mg Heparin Sodium (Porcine) (Heparin) 5,000 units SC Q8 ENRIQUE; Protocol Last Admin: 05/31/18 06:08 Dose: 5,000 units Hydroxyzine Pamoate (Vistaril) 50 mg PO TID PRN; Protocol PRN Reason: Anxiety Sodium Chloride (Sodium Chloride 0.9%) 1,000 mls @ 200 mls/hr IV .Q5H ENRIQUE Last Admin: 05/31/18 06:18 Dose: 200 mls/hr Lorazepam (Ativan) 1 mg IVP Q4H PRN; Protocol PRN Reason: Agitation Last Admin: 05/30/18 12:43 Dose: 1 mg Lorazepam (Ativan) 2 mg IVP Q6H PRN; Protocol PRN Reason: Anxiety Last Admin: 05/31/18 05:21 Dose: 2 mg Multivitamins/Minerals (Therapeutic-M Tab) 1 tab PO 0800 [facility] Thiamine HCl (Vitamin B1 Tab) 100 mg PO DAILY [facility] Last Admin: 05/31/18 10:54 Dose: 100 mg Vitamin A (Vitamin A & D Oint Ud Foilpak) 1 ea TOP Q8 PRN PRN Reason: Dry skin Last Admin: 05/30/18 12:19 Dose: 1 ea Ziprasidone (Geodon Inj) 20 mg IM TID PRN; Protocol PRN Reason: Agitation Last Admin: 05/31/18 06:22 Dose: 20 mg - Labs Labs: 05/30/18 05:30 05/31/18 06:30 APTT 24.4 Seconds (25.1-36.5) L 05/30/18 05:30 Assessment and Plan - Assessment and Plan (Free Text) Plan: Infectious Diseases Attending Physician Attestation Patient seen and examined, discussed with chief medical physicist. I have reviewed the patient's history of present illness, past medical, family and social histories, personal history, physical exam, lab findings and imaging studies. I agree with the above findings, assessment and plan. In addition, patient has SIRS probably reactive in this patient with psychosis, R/O drugs-related. Cultures are negative. Will continue to monitor off antibiotics. HIV test is negative.
[2018-05-31 07:27] LABS: TROPONIN I < 0.01 ng/mL
[2018-05-31] MEDS ORDERED: Pantoprazole 40 mg EC Tab PO SCH (07:30)
[2018-05-31 07:47] LABS: ALB/GLOB RATIO 1.2 (1.1-1.8); ALBUMIN 3.6 g/dL (3.0-4.8); ALT/SGPT 61 U/L (7-56); AST/SGOT 168 U/L (17-59); BLOOD UREA NITROGEN 7 mg/dL (7-21); CALCIUM 8.9 mg/dL (8.4-10.5); GFR NON-AFRICAN AMERICAN > 60
[2018-05-31] MEDS ORDERED: Potassium Chloride 20 mEq ER Tab PO ONE (08:34)
[2018-05-31 08:37] LABS: CK MB% 0.1 % (2.5-3.0); CK-MB 5.4 ng/mL (0.0-3.6)
--- NOTE | 2018-05-31 10:48 | PN ---
DATE: 05/31/2018 REASON FOR CONSULTATION AND FOLLOWUP: Sinus tachycardia; possibly acute psychosis, now is stable, still the patient is hallucinating. SUBJECTIVE: The patient denies any chest pain, shortness of breath or any palpitations. OBJECTIVE: GENERAL: Not in apparent distress. VITAL SIGNS: Temperature afebrile, heart rate 87 and blood pressure 120/80. HEENT: PERRLA. Extraocular muscles intact. NECK: Supple. No carotid bruits or thyromegaly. CHEST: Clear to auscultation. HEART: S1 and S2 regular. ABDOMEN: Soft. EXTREMITIES: Clubbing, cyanosis negative. LABORATORY DATA: WBC 9.8, hemoglobin 12.9, hematocrit 37.1 and platelet count 210,000. Chemistry shows sodium 140, potassium 3.8, chloride 107, carbon dioxide 25, anion gap of 11, BUN 7 and creatinine 0.7. CPK 4340. Troponin remains negative. IMPRESSION: An 17-year-old male with past medical history of substance abuse admitted with acute psychosis, admitted to floor for acute rhabdomyolysis and sinus tachycardia. The patient is stable on propranolol. On IV fluid, CPK trending down. No evidence of acute myocardial infarction, just rhabdomyolysis. Echo done to rule out any structural heart disease, essentially shows normal chambers with ejection fraction 55% to 60%, trace mitral regurgitation and mild tricuspid regurgitation. RECOMMENDATION: Continue IV fluids. Continue propranolol and psych evaluation. Thank you Dr. Zhu for providing us the opportunity in taking care of the patient Deshawn; we will supplement potassium. Chari Jha MD
[2018-05-31] MEDS: Multivitamin With Minerals Tab PO SCH (11:20)
--- NOTE | 2018-05-31 16:42 | PN ---
DATE: 05/31/2018 SUBJECTIVE: The patient is seen in [facility] Critical Care Unit room 138. The patient was admitted with erratic behavior, schizophrenia. The patient had used marijuana, possibly contaminated. The patient was very very agitated and had to be sedated in the critical care unit. PHYSICAL EXAMINATION: GENERAL: He was seen this morning. He is awake and alert. He is very pleasant. VITAL SIGNS: His pulse is 67, blood pressure is 140/80, respirations are 16 per minute, his O2 sat is 98% on room air. HEENT: The patient's head is normocephalic. NECK: The thyroid is not enlarged. JVP is flat. LUNGS: Clear. HEART: Normal sinus rhythm. ABDOMEN: Soft. Liver and spleen not palpable. CENTRAL NERVOUS SYSTEM: No focal deficits are noted. LABORATORY DATA: The patient's blood work shows that the patient's CPK is still 4300. His AST is dropped from 249 to 168. The patient's cardiac enzyme MB fraction was 5.4. It was originally 18.1. ASSESSMENT AND PLAN: The patient had severe tachycardia associated with reaction to the marijuana that he was using. The patient's cardiac condition seemed to be stabilized, but his CPK is still elevated. He needs intravenous fluids and hydration. He needs evaluation by the psychiatrist for further management. We will continue the treatment with fluids and his diet and keep an eye on it. Hanh Zhu MD AMAN
[2018-05-31 17:15] VITALS: RESP 67
[2018-05-31 23:00] VITALS: PULSE 87
[2018-06-01] MEDS: Sodium Chloride 0.9% 1,000 ML IV SCH (04:31)
[2018-06-01 05:55] LABS: CK-MB 2.1 ng/mL (0.0-3.6)
[2018-06-01] MEDS: Multivitamin With Minerals Tab PO SCH (08:00)
[2018-06-01 08:23] VITALS: BP 131/99; O2SAT 100
--- NOTE | 2018-06-01 10:28 | PN ---
DATE: 06/01/2018 SUBJECTIVE: The patient is in Critical Care Unit, he is recovering from chemical intoxication and mental disorder. The patient has underlying mental disorder. The patient was agitated when he was admitted to the hospital. He was restrained and his creatinine phosphokinase was elevated due to extreme muscular activity from agitation. The patient has no other medical history. The patient gave history of using marijuana. Anyway this patient is seen this morning, he is anxious to leave the hospital. PHYSICAL EXAMINATION: VITAL SIGNS: His pulse is 87, blood pressure 130/99 and respirations 18 per minute. HEENT: The patient's head is normocephalic. SKIN: There are multiple tattoos. LUNGS: Clear. HEART: Normal sinus rhythm. ABDOMEN: Soft. Liver and spleen not palpable. CENTRAL NERVOUS SYSTEM: The patient is very obsessive and anxious to leave. LABORATORY DATA: His blood work shows, white count of 9200 and his hemoglobin is 12.9. The patient's chemistry, the creatinine kinase was 10,355, it's 1564 now. It is decreased steadily in the last few days. His renal functions are within normal limits. The patient has been followed up by psychiatric physician in the [facility]. The patient is medically cleared and he is in ICU. At this point, the patient wants to leave and I spoke with his father who understands the critical dilemma. I told him that as long as he takes care of the patient and supervise him until he goes to the rehab Sunday, the patient can be discharged this afternoon. When he comes in personally, he will take the patient and escort him to his home and watch him to make sure that he drinks plenty of water and he will continue his previous psychiatric management pattern and on Sunday he should be taken to the rehab facility where he should be kept for his rehab. The medical condition is more or less abated at this time. His mental state needs more closer treatment plan; also in brief, the patient's father is going to come this afternoon and talk to the nurse and the nurse is going to talk to me and then I am going to release the patient to his father's custody, if that is okay with the father, then that is fine with me. I think at this time there is nothing else that could be done in an institution medically. If he has any difficulty or problems he can always bring him back to the emergency room and he should be attended to as necessary. Hanh Zhu MD AMAN
--- NOTE | 2018-06-01 10:57 | PN ---
DATE: 05/31/2018 FOLLOWUP NOTE SUBJECTIVE: The patient is a 17-year-old male with reported history of ADHD. The patient also has significant history of polysubstance abuse and dependence, history of rehabs and detox in the past. At this time, the patient was admitted to the psychiatric inpatient unit for evaluation of psychotic symptoms. Unfortunately, the patient required to be transferred to the emergency room as well as ICU subsequently because the patient was severely agitated, tachycardiac. Pulse was more than 160. For the past 2 days, the patient was not doing so well, requires multiple p.r.n. medications as well as Precedex drip. The patient wanted to leave against medical advice yesterday, but the patient lacks capacity to make the decision. This editorial writer attempted to speak to the patient today. The patient was sleepy. As per report, the patient slept through the night. The patient was more coherent and oriented. As per work and family life consultant, Dr. Callahan, the patient presented to be more coherent and less psychotic. As per medical team, the patient will be downgraded to the medical side today. The patient requested to have some medication for his anxiety. Vistaril was suggested and started. Collaterals were obtained from the patient's father yesterday. Father expressed his highest concerns about the patient's substance abuse. At the same time, the patient never verbalized thoughts of harming himself or others. Vital signs are stable as of now. Pulse is 67 today. Medications reviewed. The patient was on folic acid, heparin. Vistaril was started as needed. Ativan 1 mg IV push every 4 hours as needed, 2 mg IV push every 6 hours p.r.n. Multivitamins, sodium chloride, thiamine, vitamin A and Geodon. So far yesterday, the patient got two doses and today at 6 o'clock, the patient got another dose of Geodon. Labs reviewed, most recent was from yesterday. Chemistry was done today. Creatine kinase is going down. Rhabdomyolysis is improving. MENTAL STATUS EXAMINATION: This editorial writer was not able to assess the patient because the patient was deeply sleeping status post IM of Geodon. But based on the report, the patient's thought process is more coherent and goal-directed. The patient does not have any aggression or agitation, more coherent. IMPRESSION: Rule out substance-induced delirium, rule out synthetic drug use. As per history, attention deficit and hyperactivity disorder. PLAN: Continue current management. Continue current medications. Dr. Zacarias will follow up on this patient over the weekend. The patient has as needed medications such as Geodon and Ativan. The patient is improving. Should you have any questions, give me a call back. Flor Leger MD
--- NOTE | 2018-06-01 15:48 | PN ---
DATE: 06/01/2018 LOCATION: Patient in ICU, 128, bed 6. REASON FOR CONSULTATION AND FOLLOWUP: Sinus tachycardia, possible acute psychosis. SUBJECTIVE: Patient sitting comfortably in bed without chest pain, shortness of breath, or palpitation. PHYSICAL EXAMINATION: VITAL SIGNS: Blood pressure 131/99, early blood pressure was 140/65, respiration 18, pulse 57. Patient is afebrile. HEENT: Head: Normocephalic. Eyes: Pupils normal. Conjunctivae normal. Nose and throat normal. NECK: JVP low. Carotids equal. THORAX: AP diameter normal. LUNGS: Clear. CARDIOVASCULAR: S1, S2. ABDOMEN: Soft, nontender. No organomegaly. Bowel sounds normal. EXTREMITIES: No clubbing, no cyanosis. LABORATORY DATA: WBC 9.2, hemoglobin 12.9, hematocrit 37.1, platelets 210. Sodium 140, potassium 3.8, BUN 7, creatinine 0.7, AST 168, ALT 61, total CPK 1564, CPK-MB 2.1%, troponin was 96. DIAGNOSES: History of substance abuse, admitted with acute psychosis; acute rhabdomyolysis, sinus tachycardia. Echo showed normal ejection fraction, 55-60%, trace mitral regurgitation and mild tricuspid regurgitation. PLAN: Patient getting IV fluid therapy. His CPK is decreasing. Patient on folic acid 1 mg daily, heparin 5000 units subcu every 8 hours. We will continue to monitor with you and follow with you. Chari Rajan MD
--- NOTE | 2018-06-01 21:00 | CON ---
DATE: 06/01/2018 HISTORY OF PRESENT ILLNESS: The patient is a 17-year-old male with a significant history of polysubstance abuse dependence and substance-induced psychiatric disorder, who was recently transferred from the psychiatric inpatient unit, where he was admitted for psychiatry symptoms, to the ICU due to severe agitation, tachycardia, and rhabdomyolysis. Dr. Leger has been following him in the ICU and it was determined that the patient lacks capacity to make a decision to significant medical advice. He appeared to be a little bit more coherent and oriented yesterday, although, still had some periods of confusion yesterday. It was felt that comprehension and coherency and orientation are improving and this provider has determined that the patient appeared to be coherent and oriented to month, year, and location this morning. The patient is generally consistent with his responses and I cannot detect any psychosis at this time. Again, he appears to be adamant about being discharged today, although, he is agreeable for outpatient treatment. Although, the patient does present with increased lucidity today,I cannot rule out that this waxing and waning presentation of delirium which he has been suffering from since his transfer. At this time, conservatively, I cannot psychiatrically clear the patient until he has shown improved mentation on a consistent level for 24 hours. IMPRESSION: Substance-induced delirium, rule out synthetic drug use as per history. Attention deficit disorder. RECOMMENDATIONS: We will continue with current management. The patient appears to be improving, there is no acute indication to change medications at this time. Delirium does have a waxing and waning presentation and so this provider is unsure whether the patient will decompensate easily during the day. Therefore, I cannot provide psychiatric clearance until the patient has shown sustained improvement in cognition and orientation and coherency for at least 24 hours. The patient is not psychiatrically cleared to be discharged AMA today. Psychiatry will continue to follow up with the patient on 06/02/2018. Medicines, should continue with Geodon 20 mg IM t.i.d. p.r.n. and Ativan 2 mg IV every 6 p.r.n. as well as 1 mg IV every 4 p.r.n. and Vistaril 50 mg p.o. t.i.d. p.r.n. Cecille Zacarias MD [facility] # [id number]
--- NOTE | 2018-06-03 02:17 | DS ---
BRIEF HISTORY: This is a 17-year-old male, previously unknown to me, who was initially seen on the psychiatric floor, where he was admitted for hallucinations, disorder thinking, erratic behavior. Patient was extremely agitated despite being in 4-point ladder restraints and having received 6 mg of Ativan and 5 mg of Haldol. Patient was tachycardic with his heart rate running in the 140s to 150s. He was unable to give any history. His drug test was positive for cannabinoids. Due to the tachycardia and unstable state of the patient, he was transferred to the emergency room, where he was found to have a temperature of 99, pulse of 146, CK of , which is elevated. Patient was admitted to the telemetry floor. HOSPITAL COURSE: Patient was extremely agitated on the telemetry floor despite receiving Ativan in the emergency room. He had received Ativan and Haldol previously on the psychiatry floor and was still extremely agitated. He was then transferred to the intensive care unit, where he was started on Precedex for sedation. Patient was also started on the IV fluids for rhabdomyolysis. For the leukocytosis, urine and blood cultures were sent. Patient was weaned off of the Precedex. He was awake. He was followed up by the psychiatrist, Dr. Ray. He was seen by Cardiology, Dr. Jha; Neurology, Dr. June; and Infectious Disease, Dr. Griffiths. Cultures were all negative. White blood cell count decreased from 17.3 to 12.1 and then 9.2, which is normal within normal limits. With the IV fluids, patient's CPK steadily decreased. Patient was asking to go home. Patient's father agreed to take the patient home and monitor him as well as to make sure that he drinks plenty of fluids until he can be taken to a rehab center on Sunday, where he will be admitted for inpatient rehab. Patient's father and the patient were aware of the risks of leaving the hospital and were advised if any problems, he could return. DISCHARGE DIAGNOSES: Acute psychosis, tachycardia, leukocytosis, rhabdomyolysis. DISCHARGE MEDICATIONS: None. FOLLOWUP: Patient agrees to follow up with his primary care physician, Dr. Aparicio, to have the CPK levels checked and liver enzymes checked. Patient is also to go to rehab and will be supervised by his father over the weekend. Geremias Zhu MD [facility] # [phone]
== END 2018-06-01 15:31 | disposition home or self-care (01) | DRG 896 ==
LOC: ED 15:04 → ERH 18:38 → 2RSO 21:54 → ICU 23:08
PROVIDERS: ADMIT Internal Medicine; ATTEND Internal Medicine
DX: F19.959 Other psychoactive substance use, unspecified with psychoactive substance-induced psychotic disorder, unspecified (principal); G92 Toxic encephalopathy; M62.82 Rhabdomyolysis; F20.9 Schizophrenia, unspecified; R41.82 Altered mental status, unspecified; R45.1 Restlessness and agitation; R00.0 Tachycardia, unspecified; F41.9 Anxiety disorder, unspecified; D72.829 Elevated white blood cell count, unspecified; Z78.1 Physical restraint status; F17.210 Nicotine dependence, cigarettes, uncomplicated; F12.90 Cannabis use, unspecified, uncomplicated; F90.9 Attention-deficit hyperactivity disorder, unspecified type; F91.9 Conduct disorder, unspecified; E87.8 Other disorders of electrolyte and fluid balance, not elsewhere classified; R40.2412 Glasgow coma scale score 13-15, at arrival to emergency department; I08.1 Rheumatic disorders of both mitral and tricuspid valves; Z88.8 Allergy status to other drugs, medicaments and biological substances